=== PATIENT | male | born 1965 | race Caucasian/White ===

== ENCOUNTER 2023-10-10 08:59 | Outpatient (AMB) | payer BC, SELFPAY ==
--- NOTE | 2023-10-10 09:04 | MHC.OFFVIS ---
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 Palomares. He has a past medical history of history of basal cell carcinoma, contact dermatitis, BPH without outflow obstruction, hyperlipidemia, vitamin-D deficiency, and Suad's thyroiditis. He presents to the office today as a new patient for ongoing lower urinary tract symptoms. In discussion with the patient today he reports having followed up with [facility]rology group of [facility] summer however presents today to establish urology care here. He discusses having ongoing intermittent issues with nocturia, weak urinary stream, and urinary pressure. He reports at times feeling the need to strain or bare down to urinate. He reports feeling Flomax is helpful in relieving this symptom however is not currently on Flomax as he does not feel any bothersome urinary issues or concerns. He reports undergoing a embolization procedure of his prostate and felt this was 10-20% affective in his nocturia. He reports nocturia up to 2 times per night. He reports having had a in office cystoscopy with previous urologist at which time recommendations were made for Rezum procedure of the prostate. He reports never having gone through with this procedure as he felt there was scheduling issues. 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 Patient with previous urodynamics testing. He currently denies any bothersome urinary issues or concerns. In office urinalysis results reviewed with the patient today. PVR 29 mL. [facility] Medical History Metatarsalgia of left foot Pain in left foot History of basal cell carcinoma (BCC) Villonodular synovitis of ankle and foot Contact dermatitis Benign prostatic hyperplasia Panic disorder with agoraphobia Overweight Mixed hyperlipidemia Vitamin D deficiency Suad's thyroiditis Surgical History H/O transurethral resection of prostate History of basal cell carcinoma excision Review of Systems Const All systems reviewed & are unremarkable except as noted in HPI and below Reports no additional complaints Eyes Reports no additional complaints ENT Reports no additional complaints Card Reports as per [facility] Resp Reports no additional complaints GI Reports no additional complaints Reports as per [facility] Musc Reports as per [facility] Skin/Breast Reports as per HPI Neuro Reports no additional complaints Psych Reports no additional complaints Endo Reports as per HPI Jalil/Lymph Reports no additional complaints Aller/Immun Reports no additional complaints Physical Exam Const General: cooperative, healthy appearing, comfortable, no acute distress, well developed, alert and awake Orientation/consciousness: patient oriented x3 Limitations: no limitations HEENT Head: Yes normal to inspection, Yes normocephalic and Yes atraumatic Ears: hearing grossly normal bilaterally Eyes General: appearance normal, both eyes and all related structures Neck Neck: Yes normal visual inspection and Yes trachea midline Chest Chest palpation & inspection: normal inspection of the chest Resp Effort & Inspection: normal respiratory effort and able to speak in complete sentences Cardio Rate: regular rate GI Inspection: Yes normal to inspection General: Yes no CVA tenderness Back/Spine/Pelvis Back: no CVA tenderness Skin General skin exam: no rashes or lesions noted Neuro General: patient oriented x3 Extrem General: Yes normal to inspection Psych Appearance: grossly normal and well kempt Mental Status: mental status grossly normal Speech and movement: Normal speech and movement present and Clear speech present Affect: normal affect Attitude: cooperative Thought process: Normal thought process present Thought content: Normal thought content present Insight: Fair insight present (Psych) Judgement: Fair judgement present (Psych) Office Procedures Post Void Residual Post Residual Void Post Void Residual (PVR): 29 [id number] Void Residual by ultrasound Results AMB Urinalysis, Automated UA Leukoctes 0 Silvia/uL Last Edit by Gladys Dow on 10/10/23 09:29 UA Nitrite Negative Last Edit by Gladys Dow on 10/10/23 09:29 UA Urobilinogen 0.2 mg/dL Last Edit by Gladys Dow on 10/10/23 09:29 UA Protein 0 mg/dL Last Edit by Gladys Dow on 10/10/23 09:29 UA pH 6.5 Last Edit by Gladys Dow on 03/25/24 09:29 UA Blood 0 Chao/uL Last Edit by Gladys Beasleynithin on 10/10/23 09:29 UA Specific [place] 1.010 Last Edit by Gladys Beaslyenithin on 10/10/23 09:29 UA Ketone Negative Last Edit by Gladys Beasleynithin on 10/10/23 09:29 UA Bilirubin 0 mg/dL Last Edit by Gautamlindsey Galenithin on 10/10/23 09:29 UA Glucose 0 mg/dL Last Edit by Gautamlindsey Galenithin on 10/10/23 09:29 Results Reviewed Results Reviewed: Laboratory Last Values Urine pH (Auto) 6.5 10/10/23 09:16 Specific [place] (Auto) 1.010 10/10/23 09:16 Urine Protein (Auto) 0 mg/dL 10/10/23 09:16 Glucose (UA)(Auto) 0 mg/dL 10/10/23 09:16 Urine Ketones (Auto) Negative 10/10/23 09:16 Urine Blood (Auto) 0 Chao/uL 10/10/23 09:16 Urine Nitrite (Auto) Negative 10/10/23 09:16 Urine Bilirubin (Auto) 0 mg/dL 10/10/23 09:16 Urine Urobilinogen (Auto) 0.2 mg/dL 10/10/23 09:16 Leukocyte Esterase (Auto) 0 Silvia/uL 10/10/23 09:16 Assessment & Plan Assessment & Plan (1) Lower urinary tract symptoms: Code(s): R39.9 - Unspecified symptoms and signs involving the genitourinary system (2) Weak urinary stream: Code(s): R39.12 - Poor urinary stream (3) Nocturia: Code(s): R35.1 - Nocturia Plan In office urinalysis results reviewed with the patient today. PVR 29 mL. Discussed at length potential causes for lower urinary tract symptoms patient has been experiencing. Patient currently denies any bothersome urinary issues or concerns. He is happy with his current voiding parameters. Discussed obtaining PSA now and in 1 year. Discussed at length lifestyle modifications to assist with nocturia as well as weak urinary stream. Discussed possible near future in office cystoscopy for further assessment evaluation if symptoms arise. Follow-up in 1 year with lab to be completed prior; or sooner with any issues, concerns, and or questions. Orders: Orders Prostate Specific Antigen Today R39.9 - Unspecified symptoms and signs involving the genitourinary system Prostate Specific Antigen 1 Year R39.9 - Unspecified symptoms and signs involving the genitourinary system AMB Urinalysis Automated Today Z13.9 - Encounter for screening, unspecified AMB Post Void Residual by ultrasound Today Z13.9 - Encounter for screening, unspecified Patient Instructions: The patient had an opportunity to ask questions regarding the treatment plan. All questions were answered. Physical exam, labs, and imaging were discussed and reviewed in detail. As well as risks, benefits, and discussion of treatment choices. No major barriers to understanding were identified. The patient expressed understanding and agreement with the above treatment plan. The patient was made aware they should contact our office by phone for worsening of their current condition, the appearance of new symptoms, or with any questions or concerns. Compliance is encouraged with any medications and follow up testing that is ordered. It is a privilege to be allowed the opportunity to participate in? your urological care.? Again, if you have any questions or concerns If you have any questions or concerns please do not hesitate to contact me. The office is [phone]. This note is constructed using voice recognition software. While every effort has been made to ensure accuracy mechanical estimator errors may have been included. Yours sincerely, JASON Azevedo Coding Level of Care Code New Pt Level 4 (90275) Diagnoses Lower urinary tract symptoms R39.9 Weak urinary stream R39.12 Nocturia R35.1 CPT Codes Post Residual Void - PVR CPT Code: 11566-Kddo Void Residual by ultrasound ([id number]) Time Spent (min) 35
== END 2023-10-10 09:50 | disposition home or self-care (01) ==
PROVIDERS: PCP Physician Assistant Medical; Visit Provider Nurse Practitioner Family
DX: R39.9 Unspecified symptoms and signs involving the genitourinary system (principal); R39.12 Poor urinary stream; R35.1 Nocturia
CPT/HCPCS: 99204

== ENCOUNTER → 2023-10-10 08:59 | Outpatient (BNVA) | payer BC, SELFPAY | PROVIDERS: PCP Physician Assistant Medical; Visit Provider Nurse Practitioner Family | DX: N40.1 Benign prostatic hyperplasia with lower urinary tract symptoms (principal); R39.12 Poor urinary stream; R35.1 Nocturia; R39.9 Unspecified symptoms and signs involving the genitourinary system | CPT/HCPCS: 51798; 81003 ==

== ENCOUNTER 2023-10-10 10:20 | Outpatient (REF) | payer BC, SELFPAY ==
[2023-10-10 15:05] LABS: Prostate Specific Antigen 3.16 ng/mL (<0.05-4.0)
== END 2023-10-10 10:21 | disposition home or self-care (01) ==
LOC: HO.10HDL 10:20
PROVIDERS: Visit Provider Nurse Practitioner Family
DX: Z12.5 Encounter for screening for malignant neoplasm of prostate (principal); R39.9 Unspecified symptoms and signs involving the genitourinary system
CPT/HCPCS: 36415; 84153

== ENCOUNTER 2024-02-08 11:30 | Outpatient (REF) | payer BC, SELFPAY ==
[2024-02-08 14:11] LABS: Prostate Specific Antigen 3.56 ng/mL (<0.05-4.0)
== END 2024-02-08 11:31 | disposition home or self-care (01) ==
LOC: HO.10HDL 11:30
PROVIDERS: Visit Provider Nurse Practitioner Family
DX: R35.1 Nocturia (principal); R39.12 Poor urinary stream; R39.9 Unspecified symptoms and signs involving the genitourinary system; Z12.5 Encounter for screening for malignant neoplasm of prostate
CPT/HCPCS: 36415; 84153

== ENCOUNTER 2024-02-13 10:26 | Outpatient (AMB) | payer BC, SELFPAY ==
--- NOTE | 2024-02-13 10:30 | MHC.OFFVIS ---
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 Palomares. He has a past medical history of history of basal cell carcinoma, contact dermatitis, BPH without outflow obstruction, hyperlipidemia, vitamin-D deficiency, and Suad's thyroiditis. He presents to the office today for follow-up of his ongoing lower urinary tract symptoms. In discussion with the patient today he reports to be doing and feeling well. Recent PSA results reviewed with the patient today. PSAs are as follows: 12/06 2.6, 10/08 3.2, 02/07 3.6 Since last office visit patients previous urology records from [facility] were obtained these were reviewed today with the patient. It appears patient underwent urodynamics 01/06, cystoscopy 01/06 that noted no strictures, nonobstructing prostate, nonobstructing bladder neck, and mild hyperplasia. It appears patient was to undergo prostate biopsy procedure however this was never completed. He discusses having ongoing intermittent issues with nocturia, weak urinary stream, and urinary pressure. He reports at times feeling the need to strain or bare down to urinate. He reports feeling Flomax is helpful in relieving these symptoms however is not currently on Flomax as he does not feel any bothersome urinary issues or concerns at this time. He reports undergoing a embolization procedure of his prostate and felt this was 10-20% affective in his nocturia. He reports nocturia up to 2 times per night. He reports having had a in office cystoscopy with previous urologist at which time recommendations were made for Rezum procedure of the prostate. He reports never having gone through with this procedure as he felt there was scheduling issues. 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 He currently denies any bothersome urinary issues or concerns. In office urinalysis results reviewed with the patient today. PVR 17 mL. Discussed obtaining retroperitoneal ultrasound for further assessment evaluation and redraw of PSA given borderline elevated PSA with family history of prostate cancer. Discussed at length potential causes of elevated PSA. He otherwise offers no other issues or concerns at this time. [facility] Medical History Metatarsalgia of left foot Pain in left foot History of basal cell carcinoma (BCC) Villonodular synovitis of ankle and foot Contact dermatitis Benign prostatic hyperplasia Panic disorder with agoraphobia Overweight Mixed hyperlipidemia Vitamin D deficiency Suad's thyroiditis Surgical History H/O transurethral resection of prostate History of basal cell carcinoma excision Review of Systems Const All systems reviewed & are unremarkable except as noted in HPI and below Reports no additional complaints Eyes Reports no additional complaints ENT Reports no additional complaints Card Reports as per HPI Resp Reports no additional complaints GI Reports no additional complaints Reports as per HPI Musc Reports as per HPI Skin/Breast Reports as per HPI Neuro Reports no additional complaints Psych Reports no additional complaints Endo Reports as per HPI Jalil/Lymph Reports no additional complaints Aller/Immun Reports no additional complaints Physical Exam Const General: cooperative, healthy appearing, comfortable, no acute distress, well developed, alert and awake Orientation/consciousness: patient oriented x3 Limitations: no limitations HEENT Head: Yes normal to inspection, Yes normocephalic and Yes atraumatic Ears: hearing grossly normal bilaterally Eyes General: appearance normal, both eyes and all related structures Neck Neck: Yes normal visual inspection and Yes trachea midline Chest Chest palpation & inspection: normal inspection of the chest Resp Effort & Inspection: normal respiratory effort and able to speak in complete sentences Cardio Rate: regular rate GI Inspection: Yes normal to inspection General: Yes no CVA tenderness Back/Spine/Pelvis Back: no CVA tenderness Skin General skin exam: no rashes or lesions noted Neuro General: patient oriented x3 Extrem General: Yes normal to inspection Psych Appearance: grossly normal and well kempt Mental Status: mental status grossly normal Speech and movement: Normal speech and movement present and Clear speech present Affect: normal affect Attitude: cooperative Thought process: Normal thought process present Thought content: Normal thought content present Insight: Fair insight present (Psych) Judgement: Fair judgement present (Psych) Office Procedures Post Void Residual Post Residual Void Post Void Residual (PVR): 17 [id number] Void Residual by ultrasound Results AMB Urinalysis, Automated UA Leukoctes 0 Silvia/uL Last Edit by Sumo Logicrex Dow on 02/13/24 10:44 UA Nitrite Negative Last Edit by CrimeReportsnithin on 02/13/24 10:44 UA Urobilinogen 0.2 mg/dL Last Edit by [employer] on 02/13/24 10:44 UA Protein 15 mg/dL Last Edit by [employer] on 02/13/24 10:44 UA pH 6.0 Last Edit by [employer] on 02/13/24 10:44 UA Blood 0 Chao/uL Last Edit by [employer] on 02/13/24 10:44 UA Specific [place] 1.015 Last Edit by [employer] on 02/13/24 10:44 UA Ketone Negative Last Edit by [employer] on 02/13/24 10:44 UA Bilirubin 0 mg/dL Last Edit by [employer] on 02/13/24 10:44 UA Glucose 0 mg/dL Last Edit by [employer] on 02/13/24 10:44 Results Reviewed Results Reviewed: Laboratory Last Values Urine pH (Auto) 6.0 02/13/24 10:43 Specific [place] (Auto) 1.015 02/13/24 10:43 Urine Protein (Auto) 15 mg/dL 02/13/24 10:43 Glucose (UA)(Auto) 0 mg/dL 02/13/24 10:43 Urine Ketones (Auto) Negative 02/13/24 10:43 Urine Blood (Auto) 0 Chao/uL 02/13/24 10:43 Urine Nitrite (Auto) Negative 02/13/24 10:43 Urine Bilirubin (Auto) 0 mg/dL 02/13/24 10:43 Urine Urobilinogen (Auto) 0.2 mg/dL 02/13/24 10:43 Leukocyte Esterase (Auto) 0 Silvia/uL 02/13/24 10:43 Assessment & Plan Assessment & Plan (1) Family history of prostate cancer: Code(s): Z80.42 - Family history of malignant neoplasm of prostate Category: Medical (2) Elevated PSA: Code(s): R97.20 - Elevated prostate specific antigen [PSA] Category: Medical (3) Lower urinary tract symptoms: Code(s): R39.9 - Unspecified symptoms and signs involving the genitourinary system Category: Medical Plan In office urinalysis results reviewed with the patient today; as noted above. PVR 17 mL. Reviewed all previous urology records. Discussed at length potential causes of borderline elevated PSA given patient's age. Discussed redraw of PSA with no sex the night before, no caffeine morning of, and no heavy lifting 1-2 days prior. Discussed obtaining retroperitoneal ultrasound for further assessment evaluation. Patient currently denies any bothersome urinary issues or concerns. He reports be happy with current voiding parameters. Follow-up in 1-3 months with imaging and lab to be completed prior; or sooner with any issues, concerns, and or questions. Orders: Orders AMB Urinalysis Automated Today Z13.9 - Encounter for screening, unspecified AMB Post Void Residual by ultrasound Today R39.12 - Poor urinary stream Prostate Specific Antigen Today R97.20 - Elevated prostate specific antigen [PSA], Z80.42 - Family history of malignant neoplasm of prostate US retroperitoneal comp Today R39.9 - Unspecified symptoms and signs involving the genitourinary system, R97.20 - Elevated prostate specific antigen [PSA], Z80.42 - Family history of malignant neoplasm of prostate Patient Instructions: The patient had an opportunity to ask questions regarding the treatment plan. All questions were answered. Physical exam, labs, and imaging were discussed and reviewed in detail. As well as risks, benefits, and discussion of treatment choices. No major barriers to understanding were identified. The patient expressed understanding and agreement with the above treatment plan. The patient was made aware they should contact our office by phone for worsening of their current condition, the appearance of new symptoms, or with any questions or concerns. Compliance is encouraged with any medications and follow up testing that is ordered. It is a privilege to be allowed the opportunity to participate in? your urological care.? Again, if you have any questions or concerns If you have any questions or concerns please do not hesitate to contact me. The office is [phone]. This note is constructed using voice recognition software. While every effort has been made to ensure accuracy christian education director errors may have been included. Yours sincerely, JASON Azevedo Coding Level of Care Code Est Pt Level 4 (14045) Diagnoses Family history of prostate cancer Z80.42 Elevated PSA R97.20 Lower urinary tract symptoms R39.9 CPT Codes Post Residual Void - PVR CPT Code: 72364-[id number] Void Residual by ultrasound ([id number]) Time Spent (min) 25
== END 2024-02-13 11:22 | disposition home or self-care (01) ==
PROVIDERS: PCP Physician Assistant Medical; Visit Provider Nurse Practitioner Family
DX: Z80.42 Family history of malignant neoplasm of prostate (principal); R97.20 Elevated prostate specific antigen [PSA]; R39.9 Unspecified symptoms and signs involving the genitourinary system; Z13.9 Encounter for screening, unspecified
CPT/HCPCS: 99214

== ENCOUNTER → 2024-02-13 10:26 | Outpatient (BNVA) | payer BC, SELFPAY | PROVIDERS: PCP Physician Assistant Medical; Visit Provider Nurse Practitioner Family | DX: R97.20 Elevated prostate specific antigen [PSA] (principal); R39.9 Unspecified symptoms and signs involving the genitourinary system; Z80.42 Family history of malignant neoplasm of prostate | CPT/HCPCS: 51798; 81003 ==

== ENCOUNTER 2024-03-27 15:06 | Outpatient (REF) | payer BC, SELFPAY ==
--- NOTE | ~2024-03-27 | US_ITS ---
EXAMINATION: US RETROPERITONEAL COMPLETE (RENAL) CLINICAL INFORMATION: Elevated PSA, family history of malignant prostate, lower urinary tract symptoms. COMPARISON: None available. TECHNIQUE: Real-time imaging of the kidneys and bladder. FINDINGS: RIGHT KIDNEY: 11.8 x 6.1 x 5.6 cm (SAG x AP x TRV). The kidney is normal in size, contour, and echogenicity. Renal cortical thickness is normal. No calculi or focal parenchymal lesions. No hydronephrosis. LEFT KIDNEY: 11.5 x 5.1 x 4.8 cm (SAG x AP x TRV). The kidney is normal in size, contour, and echogenicity. Renal cortical thickness is normal. No calculi or focal parenchymal lesions. No hydronephrosis. BLADDER: Well distended and normal. Bilateral ureteral jets are demonstrated. Prevoid bladder volume is 414 mL. Postvoid bladder volume is 158 mL. ADDITIONAL FINDINGS: Prostate at upper limits of normal measuring 28 mL. US/US retroperitoneal comp IMPRESSION: Normal-appearing kidneys. Prostate at upper limits of normal in size with large 158 mL post void residual. Electronically signed by: Arie Hinton MD 04/04/2024 02:10 PM EDT RP
== END 2024-03-27 15:07 | disposition home or self-care (01) ==
LOC: HO.US 15:06
PROVIDERS: PCP Physician Assistant Medical; Visit Provider Nurse Practitioner Family
DX: R97.20 Elevated prostate specific antigen [PSA] (principal); R39.9 Unspecified symptoms and signs involving the genitourinary system; Z80.42 Family history of malignant neoplasm of prostate
CPT/HCPCS: 76770

== ENCOUNTER 2024-04-11 07:53 | Outpatient (REF) | payer BC, SELFPAY ==
[2024-04-11 10:48] LABS: Prostate Specific Antigen 2.68 ng/mL (<0.05-4.0)
== END 2024-04-11 07:54 | disposition home or self-care (01) ==
LOC: HO.10HDL 07:53
PROVIDERS: Visit Provider Nurse Practitioner Family
DX: Z12.5 Encounter for screening for malignant neoplasm of prostate (principal); R97.20 Elevated prostate specific antigen [PSA]; Z80.42 Family history of malignant neoplasm of prostate
CPT/HCPCS: 36415; 84153

== ENCOUNTER 2024-04-17 14:35 | Outpatient (AMB) | payer BC, SELFPAY ==
--- NOTE | 2024-04-17 14:38 | A.OFFVIS_ITS ---
Intake Visit Reasons: 2m/US/PSA Intake Note: Patient presents today for follow up visit on: psa lab and ultrasound results Imaging Completed: 03/27/24 PSA: 3.56 Urology Medications: none Blood Thinner: none Rn Flight Required: No Accompanied by: Self / Same As Patient Allergies Sulfa (Sulfonamide Antibiotics) Allergy (Verified 04/17/24 15:15) Hives Medication List - Last Reconciled 04/17/24 by JASON Azevedo No Known Home Meds HPI Comments Details: John is a very pleasant 59-year-old male patient of Dr. Palomares. He has a past medical history of history of basal cell carcinoma, contact dermatitis, BPH without outflow obstruction, hyperlipidemia, vitamin-D deficiency, and Suad's thyroiditis. He presents to the office today for follow-up of his ongoing lower urinary tract symptoms in labile PSA. Of note, patient was seen approximately two months ago at which time a retroperitoneal ultrasound was ordered and redraw of PSA. These results were reviewed with the patient today. PSAs are as follows: 12/06 2.6, 10/08 3.2, 02/07 3.6, 04/10 2.7 Bilateral kidneys with no calculi, lesions, and or hydronephrosis. The bladder is well distended and normal. Bilateral ureteral jets are demonstrated. Pre void bladder volume is approximately 415 mL. Postvoid bladder volume is approximately 160 mL. Prostate is upper limits of normal measuring 28 mL. We discussed variability in PSA and potential causes for this variability. Patient with a previous urological history with [facility] and underwent urodynamics 01/06, cystoscopy 01/06 that noted no strictures, nonobstructing prostate, nonobstructing bladder neck, and mild hyperplasia. It appears patient was to undergo prostate biopsy procedure however this was never completed. He discusses having ongoing intermittent issues with nocturia, weak urinary stream, and urinary pressure. He reports at times feeling the need to strain or bare down to urinate. He reports feeling Flomax is helpful in relieving these symptoms however is not currently on Flomax as he does not feel any bothersome urinary issues or concerns at this time. He reports undergoing a embolization procedure of his prostate and felt this was 10-20% affective in his nocturia. He reports nocturia up to 2 times per night. He reports having had a in office cystoscopy with previous urologist at which time recommendations were made for Rezum procedure of the prostate. He reports never having gone through with this procedure as he felt there was scheduling issues. 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 He currently denies any bothersome urinary issues or concerns. In office urinalysis results reviewed with the patient today. Discussed surveillance monitoring of PSA given family history of prostate cancer and labile PSA. He otherwise offers no other issues or concerns at this time. FOR[facility]LY [facility] Medical History Metatarsalgia of left foot Pain in left foot History of basal cell carcinoma (BCC) Villonodular synovitis of ankle and foot Contact dermatitis Benign prostatic hyperplasia Panic disorder with agoraphobia Overweight Mixed hyperlipidemia Vitamin D deficiency Suad's thyroiditis Surgical History H/O transurethral resection of prostate History of basal cell carcinoma excision Review of Systems Const All systems reviewed & are unremarkable except as noted in HPI and below Reports no additional complaints Eyes Reports no additional complaints ENT Reports no additional complaints Card Reports as per HPI Resp Reports no additional complaints GI Reports no additional complaints Reports as per HPI Musc Reports as per HPI Skin/Breast Reports as per HPI Neuro Reports no additional complaints Psych Reports no additional complaints Endo Reports as per HPI Jalil/Lymph Reports no additional complaints Aller/Immun Reports no additional complaints Physical Exam Const General: cooperative, healthy appearing, comfortable, no acute distress, well developed, alert and awake Nutritional Appearance: average body habitus Orientation/consciousness: patient oriented x3 Limitations: no limitations HEENT Head: Yes normal to inspection, Yes normocephalic and Yes atraumatic Ears: hearing grossly normal bilaterally Eyes General: appearance normal, both eyes and all related structures Neck Neck: Yes normal visual inspection and Yes trachea midline Chest Chest palpation & inspection: normal inspection of the chest Resp Effort & Inspection: normal respiratory effort and able to speak in complete sentences Cardio Rate: regular rate GI Inspection: Yes normal to inspection General: Yes no CVA tenderness Back/Spine/Pelvis Back: no CVA tenderness Skin General skin exam: no rashes or lesions noted Neuro General: patient oriented x3 Extrem General: Yes normal to inspection Psych Appearance: grossly normal and well kempt Mental Status: mental status grossly normal Speech and movement: Normal speech and movement present and Clear speech present Affect: normal affect Attitude: cooperative Thought process: Normal thought process present Thought content: Normal thought content present Insight: Fair insight present (Psych) Judgement: Fair judgement present (Psych) Results AMB Urinalysis, Automated UA Leukoctes 0 Silvia/uL Last Edit by [employer] on 04/17/24 15:07 UA Nitrite Last Edit by [employer] on 04/17/24 15:07 UA Urobilinogen 0.2 mg/dL Last Edit by [employer] on 04/17/24 15:07 UA Protein 0 mg/dL Last Edit by [employer] on 04/17/24 15:07 UA pH 6.0 Last Edit by [employer] on 04/17/24 15:07 UA Blood 0 Chao/uL Last Edit by [employer] on 04/17/24 15:07 UA Specific [place] 1.010 Last Edit by [employer] on 04/17/24 15:07 UA Ketone Last Edit by [employer] on 04/17/24 15:07 UA Bilirubin 0 mg/dL Last Edit by [employer] on 04/17/24 15:07 UA Glucose 0 mg/dL Last Edit by [employer] on 04/17/24 15:07 Results Reviewed Results Reviewed: Laboratory Last Values Urine pH (Auto) 6.0 04/17/24 15:05 Specific [place] (Auto) 1.010 04/17/24 15:05 Urine Protein (Auto) 0 mg/dL 04/17/24 15:05 Glucose (UA)(Auto) 0 mg/dL 04/17/24 15:05 Urine Blood (Auto) 0 Chao/uL 04/17/24 15:05 Urine Bilirubin (Auto) 0 mg/dL 04/17/24 15:05 Urine Urobilinogen (Auto) 0.2 mg/dL 04/17/24 15:05 Leukocyte Esterase (Auto) 0 Silvia/uL 04/17/24 15:05 Date of Service: 03/27/24 EXAMINATION: US RETROPERITONEAL COMPLETE (RENAL) FINDINGS: RIGHT KIDNEY: 11.8 x 6.1 x 5.6 cm (SAG x AP x TRV). The kidney is normal in size, contour, and echogenicity. Renal cortical thickness is normal. No calculi or focal parenchymal lesions. No hydronephrosis. LEFT KIDNEY: 11.5 x 5.1 x 4.8 cm (SAG x AP x TRV). The kidney is normal in size, contour, and echogenicity. Renal cortical thickness is normal. No calculi or focal parenchymal lesions. No hydronephrosis. BLADDER: Well distended and normal. Bilateral ureteral jets are demonstrated. Prevoid bladder volume is 414 mL. Postvoid bladder volume is 158 mL. ADDITIONAL FINDINGS: Prostate at upper limits of normal measuring 28 mL. IMPRESSION: Normal-appearing kidneys. Prostate at upper limits of normal in size with large 158 mL post void residual. Assessment & Plan Assessment & Plan (1) Elevated PSA: Code(s): R97.20 - Elevated prostate specific antigen [PSA] Category: Medical (2) Family history of prostate cancer: Code(s): Z80.42 - Family history of malignant neoplasm of prostate Category: Medical (3) Lower urinary tract symptoms: Code(s): R39.9 - Unspecified symptoms and signs involving the genitourinary system Category: Medical Plan In office urinalysis results reviewed with the patient today; as noted above. Recent PSA results reviewed with the patient today; as noted above. Recent retroperitoneal ultrasound results reviewed with the patient today; as noted above. Patient currently denies any bothersome urinary issues or concerns. Discussed importance of surveillance monitoring of PSA given family history of prostate cancer as well as labile PSA. Will obtain PSA in 6 months; with no sex the night before no caffeine morning of, and no heavy lifting 1-2 days prior. Follow-up in 6 months with PSA and PVR; or sooner with any issues, concerns, and or questions. Orders: Orders AMB Urinalysis Automated Today Z13.9 - Encounter for screening, unspecified Prostate Specific Antigen 6 Months R97.20 - Elevated prostate specific antigen [PSA], Z80.42 - Family history of malignant neoplasm of prostate Patient Instructions: The patient had an opportunity to ask questions regarding the treatment plan. All questions were answered. Physical exam, labs, and imaging were discussed and reviewed in detail. As well as risks, benefits, and discussion of treatment choices. No major barriers to understanding were identified. The patient expressed understanding and agreement with the above treatment plan. The patient was made aware they should contact our office by phone for worsening of their current condition, the appearance of new symptoms, or with any questions or concerns. Compliance is encouraged with any medications and follow up testing that is ordered. It is a privilege to be allowed the opportunity to participate in? your urological care.? Again, if you have any questions or concerns If you have any questions or concerns please do not hesitate to contact me. The office is [phone]. This note is constructed using voice recognition software. While every effort has been made to ensure accuracy gang leader errors may have been included. Yours sincerely, JASON Azevedo Coding Level of Care Code Est Pt Level 3 (20253) Diagnoses Elevated PSA R97.20 Family history of prostate cancer Z80.42 Lower urinary tract symptoms R39.9
== END 2024-04-17 15:18 | disposition home or self-care (01) ==
PROVIDERS: PCP Physician Assistant Medical; Visit Provider Nurse Practitioner Family
DX: R97.20 Elevated prostate specific antigen [PSA] (principal); Z80.42 Family history of malignant neoplasm of prostate; R39.9 Unspecified symptoms and signs involving the genitourinary system; Z13.9 Encounter for screening, unspecified
CPT/HCPCS: 99213

== ENCOUNTER → 2024-04-17 14:35 | Outpatient (BNVA) | payer BC, SELFPAY | PROVIDERS: PCP Physician Assistant Medical; Visit Provider Nurse Practitioner Family | DX: R97.20 Elevated prostate specific antigen [PSA] (principal); R39.9 Unspecified symptoms and signs involving the genitourinary system; Z80.42 Family history of malignant neoplasm of prostate | CPT/HCPCS: 81003 ==

== ENCOUNTER 2024-09-17 09:30 | Outpatient (REF) | payer BC, SELFPAY ==
--- OUTSIDE RECORDS SUMMARY | 2024-09-17 10:30 | XMS_ITS | Patient Health Record ---
Author Organization [facility] Address [address] [place] [address] Care Team Providers Care Consultant Dietitian Name Role Phone Tony Palomares PA-C Primary Care Provider Unava ilYuan Medina Unavailable [phone] Allergies Allergen (clinical drug ingredient) Drug/Non Drug Allergy documented on EMR Reaction Allergy Type Onset Date Status Substance with sulfonamide structure and antibacterial mechanism of action (substance) Sulfa Antibiotics rash, hives, swelling Drug Allergy Active Reason For Referral No Information Medications Medication SIG (Take, Route, Fr equency, Duration) Notes Start Date End Date Status Flucelvax inject 0.5 millilite r intramuscularly Intramuscular for 1 Not-Taking Social History Tobacco use other than smoking: Question Answer Notes Are you an other tobacco user? No Plan Of Treatment Pending Test Test Name Order Date [id number] Destruction, 1-14 12/05/2014 [id number] Biopsy 0.5cm 10/17/2014 Insurance Providers Payer Name Payer Address Payer Phone Subscriber Number Group Number Insured Name Patient Relationship to Insured Coverage Start Date Coverage End Date [facility] [address] [place] [address] [id number] Мария Montague Spouse - patient is the spouse of the insured Medical (General) History Medical History History ICD Code Chicken pox Surgical History Surgery Date(Month/Year) ankle surgery 2012 PAE 07/2022
--- OUTSIDE RECORDS SUMMARY | 2024-09-17 10:30 | XMS_ITS ---
Author Organization [facility] Address [address] [place] [address] Care Team Providers Care Sales Service Route Manager Name Role Phone Tony Palomares PA-C Primary Care Provider Unava ilYuan Medina Unavailable [phone] REASON FOR VISIT wayne inj Encounters Encounter Location Date Provider Diagnosis [facility] [address] [place] [address] 08/30/2023 Yuan Muller Plan Of Treatment No Information Progress Notes * John MONTAGUE JrDOB:[birth year] (58 yo M)Acc No.[id number]:08/30/2023 Patient:?John Montague :1965???Age:58 Y???Sex:Male Address:[address] [place] [id number] * true * Date:? Generated for Joshi gold/Benson/eTransmitting on:?09/17/2024 10:30 AM EST
--- OUTSIDE RECORDS SUMMARY | 2024-09-17 10:31 | XMS_ITS | Data Portability ---
Author Organization [facility], Main Office Address [address] [facility] [address] [place] [id number] Care Team Providers Care Solar Sales Representative And Assessor Name Role Phone JOSUETONY GRANT Primary Care Provider FLORIDA LAGUNAS Orthopedic Surgeon [phone] AWA WILSON Delivery Room Supervisor [phone] ROSALINDA POND Urologist ARMEN SAMAYOA Fugitive Investigator Assessment Encounter Date Assessment Date Assessment LastModified by Organization Details LastModified Time 11/20/2021 11/20/2021 This service was provided using telemedicine. Patient consented to video & audio visit Patient was located in the [facility]. Provider was located in the office. No other persons participated in the telemedicine visit except for the patient unless otherwise indicated here. {{}} Total time of visit was 20 minutes. Symptoms of viral URI with cough. REviewed symptomatic management and reasons for follow up care (fevers, shortness of breath, symptoms >2 weeks). [email or web address] Not available 11/20/2021 14:44:23 08/16/2023 08/16/2023 This service was provided using telemedicine. Patient consented to video & audio visit Patient was located in the [facility]. Provider was located in the office. No other persons participated in the telemedicine visit except for the patient unless otherwise indicated here. {{}} Total time of visit was 18 minutes. [email or web address] Not available 08/16/2023 16:04:17 Plan of Treatment Reminders Order Date Submit Date Provider Last Modified By Organization Details Last Modified Time Details Appointments None record ed. Lab lipid panel, serum 2023 024 VIBHA [facility] (Centralized Electronic Ordering - All Locations), Patient Can Go To The Location Of Their Choice, [id number] 4 12:12:04 CMP, serum or plasma 2023 024 VIBHA [facility] (Centralized Electronic Ordering - All Locations), Patient Can Go To The Location Of Their Choice, [id number] 4 12:12:03 CBC w/ auto diff 2023 024 VIBHA [facility] (Centralized Electronic Ordering - All Locations), Patient Can Go To The Location Of Their Choice, [id number] 4 12:12:03 HbA1c (hemog lobin A1c), blood 2023 024 VIBHA [facility] (Centralized Electronic Ordering - All Locations), Patient Can Go To The Location Of Their Choice, [id number] 4 12:12:03 TSH, ultra- sensit mali, serum 2023 024 VIBHA [facility] (Centralized Electronic Ordering - All Locations), Patient Can Go To The Location Of Their Choice, [id number] 4 12:12:04 HbA1c (hemog lobin A1c), blood 2022 023 VIBHA [facility], [address], [address] [address], [place], [address], 3 18:35:33 lipid panel, serum 2022 023 VIBHA [facility], [address], [place] [address], [place], [address], 3 17:27:45 vitami n D, 25-hyd lacy, total, serum 2022 023 VIBHA [facility], [address], [place] [address], [place], [address], 3 17:43:08 PSA, serum or plasma - Screen ing 2022 023 VIBHA [facility], [address], [address] [address], [place], [address], 3 17:43:05 CMP, serum or plasma 2022 023 VIBHA [facility], [address], [address], [place], [address], 3 17:27:43 TSH, serum or plasma 2022 023 VIBHA [facility], [address], [address], [place], [address], 3 17:43:07 CBC w/ auto diff 2022 023 VIBHA [facility], [address], [address] [address], [place], [address], 3 16:23:34 Referral nutrit ionist /dieti akila referr al 2023 024 vinicius Not available 4 12:28:36 podiat rist referr al 2022 023 [email or web address] Not available 3 16:28:40 orthop edic surgeo n referr al 2022 023 [facility], [address] [place] [address], [facility] [address], [address], 3 15:44:46 urolog ist referr al 2022 023 [email or web address] Timmy Palencia MD, [address] [place], [address], 3 15:46:13 Procedures None record ed. Surgeries None record ed. Imaging XR, foot, 3 or more view 2022 023 [email or web address] In-Office Order, Internal Use Only DO Not Attach Compendium DO Not Attach Compendium, Do Not Delete/merge, [id number] 3 14:04:03 XR, foot, 3 or more view 2022 023 melissa In-Office Order, Internal Use Only DO Not Attach Compendium DO Not Attach Compendium, Do Not Delete/merge, [id number] 3 14:04:04 Medication Orders loraze michael 0.5 mg tablet 2023 024 VIBHA [facility], [address] [place], [address], 4 12:12:00 tamsul osin 0.4 mg capsul e 2023 024 [email or web address] [facility], [address] [place], [address], 4 11:09:06 Mobic 15 mg tablet 2022 023 stefanie [facility], [address] [place], [address], 4 15:21:04 Patient Targets Encounter Date Encounter Id Patient Goals Patient Target Last Modified By Organization Details Last Modified Time 06/04/2024 [id number] 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 [email or web address] Not available 06/04/2024 11:46:42 Patient Instructions Encounter Date Encounter Id Patient Instructions Last Modified By Organization Details Last Modified Time 11/20/2021 [id number] cough: care instructions [email or web address] Not available 11/20/2021 14:44:33 11/15/2022 [id number] Prostate Cancer Screening pmadden Not available 11/15/2022 11:39:26 A healthy lifestyle: care instructions pmadden Not available 11/15/2022 11:39:26 Well Visit 50 to 65: Care Instructions pmadden Not available 11/15/2022 11:39:26 Medications (OTC , herbal therapies, supplements) reviewed and reconciled with patient and or caregiver, including potential side effects, drug interactions, instructions, and the consequences of not taking medication. Reviewed potential barriers to medication adherence, such as side effects from medication or cost of medication. pmadden Not available 11/15/2022 11:28:11 11/30/2022 [id number] metatarsalgia: care instructions [email or web address] Not available 11/30/2022 10:02:46 08/16/2023 [id number] benign prostatic hyperplasia: care instructions pmadden Not available 08/16/2023 16:03:32 Follow up as needed. pmadden Not available 08/16/2023 16:03:14 06/04/2024 [id number] Well Visit 50 to 65: Care Instructions pmadden Not available 06/04/2024 12:11:47 When You Want to Lose Weight: Care Instructions pmadden Not available 06/04/2024 12:11:48 Nutrition Referral and Weight Management Follow-up Information pmadden Not available 06/04/2024 12:11:48 Discussed risks for driving while using this medication. pmadden Not available 06/04/2024 11:46:10 Reason for Referral Urologist Referral for Benig n prostatic hyperplasia with outflow obstruction Referring Physician: Tony Josue, Internal Medicine, Encounter Date: 11/15/2022 Orthopedic Surgeon Referral for Metatarsalgia of left foot Referring Physician: Tony Josue, Internal Medicine, Encounter Date: 11/15/2022 Skin Diver Referral for Lima tarsalgia Referring Physician: Erendira Tinoco, Family Medicine, Encounter Date: 11/30/2022 Manager Cosmetic/dietitian Refer ral for Body mass index 25-29 - overweight Referring Physician: Tony Josue, Internal Medicine, Encounter Date: 06/04/2024 Results Created Date Observation Date Name Description Value Unit Range Abnormal Flag Note LastModifiedBy Organization Detail LastModifiedTime 11/24/19 22 11/23/2021 HEMOG LOBIN A1C hemoglobin A1C 5.5 % (4.0-5 .6) MONIT ORING : In known diabe tic patie nts, hemog lobin A1c targe ts shoul d be discu ssed with healt h care provi dana. DIAGN OSTIC USE: The Ameri can Diabe mykel Assoc iatio n (ADA) and the World Healt h Organ izati on (WHO) recom mend the use of HbA1c to diagn ose diabe mykel using a thres hold of 6.5%. Patie nts who have an HbA1c betwe en 5.7% and 6.4% are consi dered at incre ased risk for devel oping diabe mykel in the futur eJeffrey CAUTI ON: False ly low HbA1c resul ts may be obser lino in patie nts with hemol ytic anemi a, homoz ygous forms of abnor mal hemog lobin (e.g. SS, CC, SC), pregn genaro, recen t blood loss or hemog lobin F great er than 7%. Fruct osami ne may be used as an alter hayden test in these cases . REFER ENCE: ADA: Stand ards of Medic al Care in Diabe mykel 2019, The Journ al of Clini garrison and Appli ed Resea rc and Educa tion Volum e 43, Suppl ement 1 Not Available [facility] (Centralized Electronic Ordering - All Locations) Patient Can Go To The Location Of Their Choice, 11/23/2021 15:25:53 11/24/1911/23/2021 COMPL ETE BLOOD COUNT WBC 4.2 K/mm3 (4.0-1 1.0) Not Available [facility] (Centralized Electronic Ordering - All Locations) Patient Can Go To The Location Of Their Choice, 11/23/2021 15:38:37 11/24/1911/23/2021 COMPL ETE BLOOD COUNT RBC 4.69 M/mm3 (4.70- 6.10) low Not Available [facility] (Centralized Electronic Ordering - All Locations) Patient Can Go To The Location Of Their Choice, 11/23/2021 15:38:37 11/24/1911/23/2021 COMPL ETE BLOOD COUNT HGB 15.0 gm/dL (13.7- 17.1) Not Available [facility] (Centralized Electronic Ordering - All Locations) Patient Can Go To The Location Of Their Choice, 11/23/2021 15:38:37 11/24/1911/23/2021 COMPL ETE BLOOD COUNT HCT 44.1 % (40.5- 50.0) Not Available [facility] (Centralized Electronic Ordering - All Locations) Patient Can Go To The Location Of Their Choice, 11/23/2021 15:38:37 11/24/1911/23/2021 COMPL ETE BLOOD COUNT MCV 94.0 fL (80.0- 94.0) Not Available [facility] (Centralized Electronic Ordering - All Locations) Patient Can Go To The Location Of Their Choice, 11/23/2021 15:38:37 11/24/1911/23/2021 COMPL ETE BLOOD COUNT MCH 32.0 pg (27.0- 34.0) Not Available [facility] (Centralized Electronic Ordering - All Locations) Patient Can Go To The Location Of Their Choice, 11/23/2021 15:38:37 11/24/1911/23/2021 COMPL ETE BLOOD COUNT MCHC 34.0 g/dL (33.0- 37.0) Not Available [facility] (Centralized Electronic Ordering - All Locations) Patient Can Go To The Location Of Their Choice, 11/23/2021 15:38:37 11/24/1911/23/2021 COMPL ETE BLOOD COUNT plt 185 K/mm3 (150-4 60) Not Available [facility] (Centralized Electronic Ordering - All Locations) Patient Can Go To The Location Of Their Choice, 11/23/2021 15:38:37 11/24/1911/23/2021 COMPL ETE BLOOD COUNT RDW-SD 44.5 fL (<47.0 ) Not Available [facility] (Centralized Electronic Ordering - All Locations) Patient Can Go To The Location Of Their Choice, 11/23/2021 15:38:37 11/24/1911/23/2021 COMPL ETE BLOOD COUNT MPV 10.5 fL (9.4-1 2.4) Not Available [facility] (Centralized Electronic Ordering - All Locations) Patient Can Go To The Location Of Their Choice, 11/23/2021 15:38:37 11/24/1911/23/2021 COMPL ETE BLOOD COUNT automated NRBC 0.0 #/100 _WBC' s Not Available [facility] (Centralized Electronic Ordering - All Locations) Patient Can Go To The Location Of Their Choice, 11/23/2021 15:38:37 11/24/19 22 11/23/2021 COMPL ETE BLOOD COUNT abs. NRBC 0.0 K/mm3 Not Available [facility] (Centralized Electronic Ordering - All Locations) Patient Can Go To The Location Of Their Choice, 11/23/2021 15:38:37 11/24/19 22 11/23/2021 COMPR EHENS MALI METAB OLIC PANL glucose 104 mg/dL (70-99 ) high Patie nt not fasti ng Not Available [facility] (Centralized Electronic Ordering - All Locations) Patient Can Go To The Location Of Their Choice, 11/23/2021 18:00:26 11/24/1911/23/2021 COMPR EHENS MALI METAB OLIC PANL BUN 13 mg/dL (6-20) Not Available [facility] (Centralized Electronic Ordering - All Locations) Patient Can Go To The Location Of Their Choice, 11/23/2021 18:00:26 11/24/1911/23/2021 COMPR EHENS MALI METAB OLIC PANL creatinine 1.1 mg/dL (0.7-1 .2) Not Available [facility] (Centralized Electronic Ordering - All Locations) Patient Can Go To The Location Of Their Choice, 11/23/2021 18:00:26 11/24/1911/23/2021 COMPR EHENS MALI METAB OLIC PANL sodium 142 mmol/ L (133-1 45) Not Available [facility] (Centralized Electronic Ordering - All Locations) Patient Can Go To The Location Of Their Choice, 11/23/2021 18:00:26 11/24/1911/23/2021 COMPR EHENS MALI METAB OLIC PANL potassium 5.3 mmol/ L (3.6-5 .2) high Not Available [facility] (Centralized Electronic Ordering - All Locations) Patient Can Go To The Location Of Their Choice, 11/23/2021 18:00:26 11/24/1911/23/2021 COMPR EHENS MALI METAB OLIC PANL chloride 105 mmol/ L (98-10 7) Not Available [facility] (Centralized Electronic Ordering - All Locations) Patient Can Go To The Location Of Their Choice, 11/23/2021 18:00:11/24/1911/23/2021 COMPR EHENS MALI METAB OLIC PANL bicarbonate 27 mmol/ L (22-29 ) Not Available [facility] (Centralized Electronic Ordering - All Locations) Patient Can Go To The Location Of Their Choice, 11/23/2021 18:00:11/24/1911/23/2021 COMPR EHENS MALI METAB OLIC PANL anion gap 10 (4-17) Not Available [facility] (Centralized Electronic Ordering - All Locations) Patient Can Go To The Location Of Their Choice, 11/23/2021 18:00:11/24/1911/23/2021 COMPR EHENS MALI METAB OLIC PANL albumin 4.7 gm/dL (3.4-4 .8) Not Available [facility] (Centralized Electronic Ordering - All Locations) Patient Can Go To The Location Of Their Choice, 11/23/2021 18:00:11/24/1911/23/2021 COMPR EHENS MALI METAB OLIC PANL calcium 9.7 mg/dL (8.6-1 0.5) Not Available [facility] (Centralized Electronic Ordering - All Locations) Patient Can Go To The Location Of Their Choice, 11/23/2021 18:00:11/24/1911/23/2021 COMPR EHENS MALI METAB OLIC PANL bilirubin,to latesha 0.5 mg/dL (0-1.2 ) Not Available [facility] (Centralized Electronic Ordering - All Locations) Patient Can Go To The Location Of Their Choice, 11/23/2021 18:00:11/24/1911/23/2021 COMPR EHENS MALI METAB OLIC PANL total protein 7.3 gm/dL (6.2-8 .2) Not Available [facility] (Centralized Electronic Ordering - All Locations) Patient Can Go To The Location Of Their Choice, 11/23/2021 18:00:11/24/1911/23/2021 COMPR EHENS MALI METAB OLIC PANL Ag ratio 1.8 Not Available [facility] (Centralized Electronic Ordering - All Locations) Patient Can Go To The Location Of Their Choice, 11/23/2021 18:00:26 11/24/1911/23/2021 COMPR EHENS MALI METAB OLIC PANL AST 27 U/L (0-40) Not Available [facility] (Centralized Electronic Ordering - All Locations) Patient Can Go To The Location Of Their Choice, 11/23/2021 18:00:26 11/24/1911/23/2021 COMPR EHENS MALI METAB OLIC PANL alk phos 78 U/L (40-12 9) Not Available [facility] (Centralized Electronic Ordering - All Locations) Patient Can Go To The Location Of Their Choice, 11/23/2021 18:00:11/24/1911/23/2021 COMPR EHENS MALI METAB OLIC PANL ALT 29 U/L (0-41) Not Available [facility] (Centralized Electronic Ordering - All Locations) Patient Can Go To The Location Of Their Choice, 11/23/2021 18:00:26 11/24/1911/23/2021 COMPR EHENS MALI METAB OLIC PANL estimated GFR creatinine 84 mL/mi n/1.7 3_M2 Creat inine based estim ated glome rular filtr ation (eGFR ) in adult s is calcu lated using the Natio nal Kidne y Found ation recom clive d 2020 CKD-E PI equat ion. Estim ates GFR from serum creat inine , age and sex. Not Available [facility] (Centralized Electronic Ordering - All Locations) Patient Can Go To The Location Of Their Choice, 11/23/2021 18:00:26 11/24/1911/23/2021 LIPID PANEL cholesterol, total 220 mg/dL (<200) high Not Available [facility] ([facility] Order[facility] - All Locations) Patient Can Go To The Location Of Their Choice, 11/23/2021 18:00:11/24/1911/23/2021 LIPID PANEL triglyceride 155 mg/dL (<150) high Patie nt not fasti ng Not Available [facility] (Centralized Electronic Ordering - All Locations) Patient Can Go To The Location Of Their Choice, 11/23/2021 18:00:29 11/24/1911/23/2021 LIPID PANEL HDL chol 36 mg/dL (>39) low Not Available [facility] (Centralized Electronic Ordering - All Locations) Patient Can Go To The Location Of Their Choice, 11/23/2021 18:00:29 11/24/1911/23/2021 LIPID PANEL LDL cholesterol, calculated 153 mg/dL (0-130 ) high Not Available [facility] (Centralized Electronic Ordering - All Locations) Patient Can Go To The Location Of Their Choice, 11/23/2021 18:00:29 11/24/1911/23/2021 LIPID PANEL non HDL cholesterol (calc) 184 mg/dL (<160) high Not Available [facility] ([facility] Order[facility] - All Locations) Patient Can Go To The Location Of Their Choice, 11/23/2021 18:00:29 11/24/1911/23/2021 PSA SCREE N PSA 2.6 NG/mL (0-4) TEST PERFO RMED USING THE [employer] ELECT [employer] CENCE TOTAL PSA ASSAY . PSA VALUE S OBTAI DIGNA WITH OTHER ASSAY METHO DS OR KITS CANNO T BE USED INTER CASH EABLY . Not Available [facility] (Centralized Electronic Ordering - All Locations) Patient Can Go To The Location Of Their Choice, 11/23/2021 18:13:32 11/24/1911/23/2021 TSH WITH REFLE X TO FT4 TSH 1.71 uIU/m L (0.4-4 .2) Not Available [facility] (Centralized Electronic Ordering - All Locations) Patient Can Go To The Location Of Their Choice, 11/23/2021 18:13:33 11/24/1911/23/2021 25OH VITAM IN D 25OH vitamin D 26.4 NG/mL (20-50 ) Not Available [facility] (Centralized Electronic Ordering - All Locations) Patient Can Go To The Location Of Their Choice, 11/23/2021 18:13:34 11/24/1911/23/2021 ANTI- HEPAT ITIS C anti-hepatit is C (neg) normal NEGAT MALI Refer ence range : Negat mali This test was perfo rmed on the Abbot t Archi tect immun oassa y syste m. Not Available [facility] (Centralized Electronic Ordering - All Locations) Patient Can Go To The Location Of Their Choice, 11/23/2021 21:21:02 01/25/2001/24/2023 COMPL ETE CBC WITH DIFF WBC 4.9 K/mm3 (4.0-1 1.0) Not Available [facility] (Centralized Electronic Ordering - All Locations) Patient Can Go To The Location Of Their Choice, 01/24/2023 16:23:34 01/25/2001/24/2023 COMPL ETE CBC WITH DIFF RBC 4.73 M/mm3 (4.70- 6.10) Not Available [facility] (Centralized Electronic Ordering - All Locations) Patient Can Go To The Location Of Their Choice, 01/24/2023 16:23:34 01/25/2001/24/2023 COMPL ETE CBC WITH DIFF HGB 15.1 gm/dL (13.7- 17.1) Not Available [facility] (Centralized Electronic Ordering - All Locations) Patient Can Go To The Location Of Their Choice, 01/24/2023 16:23:34 01/25/2001/24/2023 COMPL ETE CBC WITH DIFF HCT 45.5 % (40.5- 50.0) Not Available [facility] (Centralized Electronic Ordering - All Locations) Patient Can Go To The Location Of Their Choice, 01/24/2023 16:23:34 01/25/2001/24/2023 COMPL ETE CBC WITH DIFF MCV 96.2 fL (80.0- 94.0) high Not Available [facility] (Centralized Electronic Ordering - All Locations) Patient Can Go To The Location Of Their Choice, 01/24/2023 16:23:34 01/25/2001/24/2023 COMPL ETE CBC WITH DIFF MCH 31.9 pg (27.0- 34.0) Not Available [facility] (Centralized Electronic Ordering - All Locations) Patient Can Go To The Location Of Their Choice, 01/24/2023 16:23:34 01/25/2001/24/2023 COMPL ETE CBC WITH DIFF MCHC 33.2 g/dL (33.0- 37.0) Not Available [facility] ([facility]ized Electronic Ordering - All Locations) Patient Can Go To The Location Of Their Choice, 01/24/2023 16:23:34 01/25/2001/24/2023 COMPL ETE CBC WITH DIFF plt 193 K/mm3 (150-4 60) Not Available [facility] (Centralized Electronic Ordering - All Locations) Patient Can Go To The Location Of Their Choice, 01/24/2023 16:23:34 01/25/2001/24/2023 COMPL ETE CBC WITH DIFF RDW-SD 47.4 fL (<47.0 ) high Not Available [facility] (Centralized Electronic Ordering - All Locations) Patient Can Go To The Location Of Their Choice, 01/24/2023 16:23:34 01/25/2001/24/2023 COMPL ETE CBC WITH DIFF MPV 10.1 fL (9.4-1 2.4) Not Available [facility] (Centralized Electronic Ordering - All Locations) Patient Can Go To The Location Of Their Choice, 01/24/2023 16:23:34 01/25/2001/24/2023 COMPL ETE CBC WITH DIFF automated NRBC 0.0 #/100 _WBC' s Not Available [facility] (Centralized Electronic Ordering - All Locations) Patient Can Go To The Location Of Their Choice, 01/24/2023 16:23:34 01/25/2001/24/2023 COMPL ETE CBC WITH DIFF abs. NRBC 0.0 K/mm3 Not Available [facility] (Centralized Electronic Ordering - All Locations) Patient Can Go To The Location Of Their Choice, 01/24/2023 16:23:34 01/25/2001/24/2023 COMPL ETE CBC WITH DIFF neut # 2.5 K/mm3 (1.3-7 .0) Not Available [facility] (Centralized Electronic Ordering - All Locations) Patient Can Go To The Location Of Their Choice, 01/24/2023 16:23:34 01/25/2001/24/2023 COMPL ETE CBC WITH DIFF lymph # 1.8 K/mm3 (0.8-3 .1) Not Available [facility] (Centralized Electronic Ordering - All Locations) Patient Can Go To The Location Of Their Choice, 01/24/2023 16:23:34 01/25/2001/24/2023 COMPL ETE CBC WITH DIFF mono# 0.5 K/mm3 (0.4-1 .3) Not Available [facility] (Centralized Electronic Ordering - All Locations) Patient Can Go To The Location Of Their Choice, 01/24/2023 16:23:34 01/25/2001/24/2023 COMPL ETE CBC WITH DIFF eo # 0.1 K/mm3 (0.0-0 .4) Not Available [facility] (Centralized Electronic Ordering - All Locations) Patient Can Go To The Location Of Their Choice, 01/24/2023 16:23:34 01/25/2001/24/2023 COMPL ETE CBC WITH DIFF baso # 0.0 K/mm3 (0.0-0 .1) Not Available [facility] (Centralized Electronic Ordering - All Locations) Patient Can Go To The Location Of Their Choice, 01/24/2023 16:23:34 01/25/2001/24/2023 COMPL ETE CBC WITH DIFF abs. imm gran 0.0 K/mm3 Not Available [facility] ([facility] Order[facility] - All Locations) Patient Can Go To The Location Of Their Choice, 01/24/2023 16:23:34 01/25/2001/24/2023 COMPL ETE CBC WITH DIFF neut 50.8 % (44-76 ) Not Available [facility] (Centralized Electronic Ordering - All Locations) Patient Can Go To The Location Of Their Choice, 01/24/2023 16:23:01/25/2001/24/2023 COMPL ETE CBC WITH DIFF lymph 37.5 % (15-43 ) Not Available [facility] (Centralized Electronic Ordering - All Locations) Patient Can Go To The Location Of Their Choice, 01/24/2023 16:23:34 01/25/2001/24/2023 COMPL ETE CBC WITH DIFF monocyte 9.5 % (4.5-1 0.5) Not Available [facility] (Centralized Electronic Ordering - All Locations) Patient Can Go To The Location Of Their Choice, 01/24/2023 16:23:34 01/25/2001/24/2023 COMPL ETE CBC WITH DIFF eo 1.6 % (0-6) Not Available [facility] (Centralized Electronic Ordering - All Locations) Patient Can Go To The Location Of Their Choice, 01/24/2023 16:23:34 01/25/2001/24/2023 COMPL ETE CBC WITH DIFF baso 0.2 % (0-2) Not Available [facility] (Centralized Electronic Ordering - All Locations) Patient Can Go To The Location Of Their Choice, 01/24/2023 16:23:34 01/25/2001/24/2023 COMPL ETE CBC WITH DIFF imm gran 0.4 % Not Available [facility] (Centralized Electronic Ordering - All Locations) Patient Can Go To The Location Of Their Choice, 01/24/2023 16:23:34 01/25/2001/24/2023 COMPR EHENS MALI METAB OLIC PANL glucose 111 mg/dL (70-99 ) high Not Available [facility] (Centralized Electronic Ordering - All Locations) Patient Can Go To The Location Of Their Choice, 01/24/2023 17:27:43 01/25/2001/24/2023 COMPR EHENS MALI METAB OLIC PANL BUN 11 mg/dL (6-20) Not Available [facility] (Centralized Electronic Ordering - All Locations) Patient Can Go To The Location Of Their Choice, 01/24/2023 17:27:43 01/25/2001/24/2023 COMPR EHENS MALI METAB OLIC PANL creatinine 1.1 mg/dL (0.7-1 .2) Not Available [facility] (Centralized Electronic Ordering - All Locations) Patient Can Go To The Location Of Their Choice, 01/24/2023 17:27:43 01/25/2001/24/2023 COMPR EHENS MALI METAB OLIC PANL sodium 142 mmol/ L (133-1 45) Not Available [facility] (Centralized Electronic Ordering - All Locations) Patient Can Go To The Location Of Their Choice, 01/24/2023 17:27:43 01/25/2001/24/2023 COMPR EHENS MALI METAB OLIC PANL potassium 4.6 mmol/ L (3.6-5 .2) Not Available [facility] (Centralized Electronic Ordering - All Locations) Patient Can Go To The Location Of Their Choice, 01/24/2023 17:27:43 01/25/2001/24/2023 COMPR EHENS MALI METAB OLIC PANL chloride 108 mmol/ L (98-10 7) high Not Available [facility] (Centralized Electronic Ordering - All Locations) Patient Can Go To The Location Of Their Choice, 01/24/2023 17:27:43 01/25/2001/24/2023 COMPR EHENS MALI METAB OLIC PANL bicarbonate 25 mmol/ L (22-29 ) Not Available [facility] (Centralized Electronic Ordering - All Locations) Patient Can Go To The Location Of Their Choice, 01/24/2023 17:27:43 01/25/2001/24/2023 COMPR EHENS MALI METAB OLIC PANL anion gap 9 (4-17) Not Available [facility] (Centralized Electronic Ordering - All Locations) Patient Can Go To The Location Of Their Choice, 01/24/2023 17:27:43 01/25/2001/24/2023 COMPR EHENS MALI METAB OLIC PANL albumin 4.5 gm/dL (3.4-4 .8) Not Available [facility] ([facility] Electronic Ordering - All Locations) Patient Can Go To The Location Of Their Choice, 01/24/2023 17:27:43 01/25/2001/24/2023 COMPR EHENS MALI METAB OLIC PANL calcium 9.5 mg/dL (8.6-1 0.5) Not Available [facility] (Centralized Electronic Ordering - All Locations) Patient Can Go To The Location Of Their Choice, 01/24/2023 17:27:43 01/25/2001/24/2023 COMPR EHENS MALI METAB OLIC PANL bilirubin,to latesha 0.5 mg/dL (0-1.2 ) Not Available [facility] (Centralized Electronic Ordering - All Locations) Patient Can Go To The Location Of Their Choice, 01/24/2023 17:27:43 01/25/2001/24/2023 COMPR EHENS MALI METAB OLIC PANL total protein 6.8 gm/dL (6.2-8 .2) Not Available [facility] (Centralized Electronic Ordering - All Locations) Patient Can Go To The Location Of Their Choice, 01/24/2023 17:27:43 01/25/2001/24/2023 COMPR EHENS MALI METAB OLIC PANL Ag ratio 2.0 Not Available [facility] (Centralized Electronic Ordering - All Locations) Patient Can Go To The Location Of Their Choice, 01/24/2023 17:27:43 01/25/2001/24/2023 COMPR EHENS MALI METAB OLIC PANL AST 26 U/L (0-40) Not Available [facility] (Centralized Electronic Ordering - All Locations) Patient Can Go To The Location Of Their Choice, 01/24/2023 17:27:43 01/25/2001/24/2023 COMPR EHENS MALI METAB OLIC PANL alk phos 90 U/L (40-12 9) Not Available [facility] (Centralized Electronic Ordering - All Locations) Patient Can Go To The Location Of Their Choice, 01/24/2023 17:27:43 01/25/2001/24/2023 COMPR EHENS MALI METAB OLIC PANL ALT 20 U/L (0-41) Not Available [facility] (Centralized Electronic Ordering - All Locations) Patient Can Go To The Location Of Their Choice, 01/24/2023 17:27:43 01/25/2001/24/2023 COMPR EHENS MALI METAB OLIC PANL estimated GFR creatinine 79 mL/mi n/1.7 3_M2 Creat inine based estim ated glome rular filtr ation (eGFR ) in adult s is calcu lated using the Natio nal Kidne y Found ation recom clive d 2020 CKD-E PI equat ion. Estim ates GFR from serum creat inine , age and sex. Not Available [facility] (Centralized Electronic Ordering - All Locations) Patient Can Go To The Location Of Their Choice, 01/24/2023 17:27:43 01/25/2001/24/2023 LIPID PANEL cholesterol, total 203 mg/dL (<200) high Not Available [facility] (Centralized Electronic Ordering - All Locations) Patient Can Go To The Location Of Their Choice, 01/24/2023 17:27:45 01/25/2001/24/2023 LIPID PANEL triglyceride 102 mg/dL (<150) Not Available [facility] (Centralized Electronic Ordering - All Locations) Patient Can Go To The Location Of Their Choice, 01/24/2023 17:27:45 01/25/2001/24/2023 LIPID PANEL HDL chol 52 mg/dL (>39) Not Available [facility] (Centralized Electronic Ordering - All Locations) Patient Can Go To The Location Of Their Choice, 01/24/2023 17:27:45 01/25/2001/24/2023 LIPID PANEL LDL cholesterol, calculated 131 mg/dL (0-130 ) high Not Available [facility] (Centralized Electronic Ordering - All Locations) Patient Can Go To The Location Of Their Choice, 01/24/2023 17:27:45 01/25/2001/24/2023 LIPID PANEL non HDL cholesterol (calc) 151 mg/dL (<160) Not Available [facility] (Centralized Electronic Ordering - All Locations) Patient Can Go To The Location Of Their Choice, 01/24/2023 17:27:45 01/25/2001/24/2023 PSA SCREE N PSA 2.5 NG/mL (0-4) TEST PERFO RMED USING THE VERONICA ELECT Ignite100U MINENeuroMetrix CENCE TOTAL PSA ASSAY . PSA VALUE S OBTAI DIGNA WITH OTHER ASSAY METHO DS OR KITS CANNO T BE USED INTER CASH EABLY . Not Available [facility] (Centralized Electronic Ordering - All Locations) Patient Can Go To The Location Of Their Choice, 01/24/2023 17:43:05 01/25/2001/24/2023 TSH WITH REFLE X TO FT4 TSH 1.09 uIU/m L (0.4-4 .2) Not Available [facility] (Centralized Electronic Ordering - All Locations) Patient Can Go To The Location Of Their Choice, 01/24/2023 17:43:06 01/25/2001/24/2023 25OH VITAM IN D 25OH vitamin D 25.4 NG/mL (20-50 ) Not Available [facility] (Centralized Electronic Ordering - All Locations) Patient Can Go To The Location Of Their Choice, 01/24/2023 17:43:08 01/25/20 23 01/24/2023 HEMOG LOBIN A1C hemoglobin A1C 5.4 % (4.0-5 .6) MONIT ORING : In known diabe tic patie nts, hemog lobin A1c targe ts shoul d be discu ssed with healt h care provi dana. DIAGN OSTIC USE: The Ameri can Diabe mykel Assoc iatio n (ADA) and the World Healt h Organ izati on (WHO) recom mend the use of HbA1c to diagn ose diabe mykel using a thres hold of 6.5%. Patie nts who have an HbA1c betwe en 5.7% and 6.4% are consi dered at incre ased risk for devel oping diabe mykel in the futur e. CAUTI ON: False ly low HbA1c resul ts may be obser lino in patie nts with hemol ytic anemi a, homoz ygous forms of abnor mal hemog lobin (e.g. SS, CC, SC), pregn genaro, recen t blood loss or hemog lobin F great er than 7%. Fruct osami ne may be used as an alter hayden test in these cases . REFER ENCE: ADA: Stand ards of Medic al Care in Diabe mykel 2019, The Journ al of Clini garrison and Appli ed Resea [facility] and Educa tion Volum e 43, Suppl ement 1 Not Available [facility] (Centralized Electronic Ordering - All Locations) Patient Can Go To The Location Of Their Choice, [id number] 01/24/2023 18:35:33 01/20/20 23 01/14/2023 XR, foot, 3 or more view No observ ation record ed. melissa [facility] [place] [address] [address], [place], [address], 02/02/2023 11:02:42 01/20/20 23 01/14/2023 XR, foot, 3 or more view No observ ation record ed. seng [facility] [place] [address] [facility] [address], [place], [address], 01/19/2023 15:37:41 01/20/20 23 01/14/2023 XR, foot, 3 or more view No observ ation record ed. [facility] [address], [address], 01/19/2023 15:37:41 01/20/20 23 01/14/2023 XR, foot, 3 or more view No observ ation record ed. [facility] [address], [address], 01/19/2023 15:37:42 02/03/20 23 01/14/2023 XR, foot, 3 or more view No observ ation record ed. [email or web address] [address], [address], 03/02/2023 16:42:49 02/03/20 23 01/14/2023 XR, foot, 3 or more view No observ ation record ed. [facility] [address], [address], 02/02/2023 23:41:13 02/03/20 23 01/14/2023 XR, foot, 3 or more view No observ ation record ed. [facility] [address], [address], 02/02/2023 23:39:24 02/03/20 23 01/14/2023 XR, foot, 3 or more view No observ ation record ed. [facility] [address], [address], 02/02/2023 23:40:49 04/04/20 24 03/27/2024 US, duple x, retro perit oneum , compl ete No observ ation record ed. [facility] (Medical Records) [address] [place], [address], 06/04/2024 11:43:08 Result Notes None recorded. Problems Name Problem SNOMED Code Status Onset Date Resolution Date Notes Provider Name and Address Organization Details Recorded Time Patient status finding 249125131 Completed 201201/29/2014 RECORDED 11/10/19 13 1:36PM BY CORINA AUSTIN MA, ANNOTATI ON/ADDEN DUM Deneen last [facility] 8 15:58:40 Contact dermatit is 55020498 Active 2013 Not Available [facility] 0 13:05:47 Dizzines s and giddines s 976415224 Completed 201201/29/2014 RECORDED 08/03/19 13 12:59PM BY CORINA AUSTIN MA, ANNOTATI ON/ADDEN DUM Not Available [facility] 4 14:53:28 Malaise and fatigue 561375500 Completed 201309/02/2017 RECORDED 11/28/19 14 12:57PM BY CORINA AUSTIN MA, OFFICE VISIT Deneen last [facility] 8 15:58:51 Adult health examinat ion Completed 201309/02/2017 RECORDED 11/28/19 14 12:58PM BY CORINA AUSTIN MA, OFFICE VISIT Deneen last [facility] 8 15:58:46 Adult health examinat ion Completed 201201/29/2014 RECORDED 11/10/19 13 1:36PM BY CORINA AUSTIN MA, ANNOTATI ON/ADDEN DUM Deneen last [facility] 8 15:58:46 Insomnia 248286567 Completed 201301/29/2014 RECORDED 11/28/19 14 12:57PM BY CORINA AUSTIN MA, ANNOTATI ON/ADDEN DUM Not Available [facility] 4 14:53:28 Patient status finding 411741351 Completed 201309/02/2017 RECORDED 11/28/19 14 12:58PM BY CORINA AUSTIN MA, OFFICE VISIT Deneen last [facility] 8 15:58:40 Panic disorder without agorapho gurpreet 64981935 Active 2013 Not Available [facility] 0 13:05:47 Administ ration of diphther ia, pertussi s, and tetanus vaccine Completed 201309/02/2017 RECORDED 11/28/19 14 1:36PM BY BELKIS MAHARAJ MD, OFFICE VISIT Deneen last, [facility] 8 15:59:08 Disorder of thyroid gland 87373000 Completed 201311/13/2018 Tony Josue PA-C [address] [facility] [place] [place] [address], [place], [address] [facility] 9 11:51:22 Vitamin D deficien cy 06857296 Active 2013 Not Available [facility] 0 13:05:47 Patient status finding 236783399 Completed 201202/21/2014 RECORDED 11/10/19 13 1:36PM BY CORINA AUSTIN MA, ANNOTATI ON/ADDEN DUM Deneen last, [facility] 8 15:58:40 Dizzines s and giddines s 324848965 Completed 201202/21/2014 RECORDED 08/03/19 13 12:59PM BY CORINA AUSTIN MA, ANNOTATI ON/ADDEN DUM Not Available [facility] 4 13:03:30 Insomnia 176013926 Completed 201302/21/2014 RECORDED 11/28/19 14 12:57PM BY CORINA AUSTIN MA, ANNOTATI ON/ADDEN DUM Not Available [facility] 4 13:03:30 Patient status finding 488647872 Completed 201202/22/2014 RECORDED 11/10/19 13 1:36PM BY CORINA AUSTIN MA, ANNOTATI ON/ADDEN DUM Deneen last, [facility] 8 15:58:40 Dizzines s and giddines s 791730893 Completed 201202/22/2014 RECORDED 08/03/19 13 12:59PM BY CORINA AUSTIN MA, ANNOTATI ON/ADDEN DUM Not Available [facility] 4 03:51:49 Insomnia 052374800 Completed 201302/22/2014 RECORDED 11/28/19 14 12:57PM BY CORINA AUSTIN MA, ANNOTATI ON/ADDEN DUM Not Available [facility] 4 03:51:49 Shoulder pain 78753148 Completed 09/02/2017 Deneen last, [facility] 8 15:59:11 Synoviti s of ankle 41634172179 4103 Active 2017 Not Available [facility] 0 13:05:48 Villonod ular synoviti s of subtalar joint 602962920 Completed 201711/15/2018 RIGHT ANKLE Removal Reason: not specific Regina Merrick last [facility] 9 13:36:36 Hashimot o thyroidi tis 73687467 Active 2018 Not Available [facility] 0 13:05:47 Overweig ht 378093260 Active 2018 Not Available [facility] 0 13:05:47 Villonod ular synoviti s of ankle and foot 952272852 Active 2018 Not Available [facility] 0 13:05:47 Pain in left foot 65804556104 9107 Active 2021 Tony Josue PA-C [address] [facility] [address], [place], [address] , [facility] 2 11:02:19 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 108027893 Active 2021 Tony Josue PA-C [address], [place], [address] , [facility] 2 11:02:25 Mixed hyperlip idemia 255191185 Active 2021 Tony Josue PA-C [address], [place], [address] , [facility] 2 16:55:14 History of malignan t basal cell neoplasm of skin 822915881 Active 2022 Tony Josue PA-C [address] [facility] [address], [place], [address] , [facility] 3 11:15:22 Metatars algia of left foot 29695589154 9106 Active 2022 Tony Josue PA-C [address] [facility] [address], [place], [address] , [facility] 3 11:32:51 Bunion 695268542 Active 2022 [place], [facility] 3 16:41:19 Calcanea l spur 99728850 Active 2022 [place], [facility] 3 16:41:49 Anxiety 76471962 Active 2023 Tony Josue PA-C [address] [facility] [place] [address], [place], [address] , [facility] 4 12:11:53 Problem Notes None recorded. Procedures Surgical History Date Name Laterality Status Provider Name and Address Organization Details Recorded Time 07/26/19 23 embolization procedure completed Johanna Rogers MA [facility] 11/15/2022 10:39:16 02/24/20 22 excision of basal cell carcinoma completed Tony Josue PA-C [address] [facility] [place] [address], [place], [address], [facility] 11/15/2022 11:15:09 06/22/20 19 Colonoscopy completed Cecelia Posadas [facility] 06/28/2019 13:10:12 03/14/20 18 Dbrdmt ecz/infected skin<10% completed Eli Méndez MA [facility] 11/13/2018 11:22:26 03/14/20 18 Arthroscopic Surgery completed Cecelia Posadas [facility] 11/14/2018 10:48:37 excision of basal cell carcinoma completed Darling Goncalves MA [facility] 06/04/2024 11:11:37 Imaging Results Imaging Date Name Status LastModified by Organiz ation Details LastModified Time 01/14/2023 XR, foot, [facility] [address], [address], 02/02/2023 11:02:42 01/14/2023 XR, foot, 3 or more view completed [facility] [address], [address], 01/19/2023 15:37:41 01/14/2023 XR, foot, 3 or more view completed [facility] [address], [address], 01/19/2023 15:37:41 01/14/2023 XR, foot, 3 or more view completed [facility] [address], [address], 01/19/2023 15:37:42 01/14/2023 XR, foot, 3 or more view completed [email or web address] [facility] [address], [address], 03/02/2023 16:42:49 01/14/2023 XR, foot, 3 or more view completed [facility] [address], [address], 02/02/2023 23:41:13 01/14/2023 XR, foot, 3 or more view completed [facility] [address], [address], 02/02/2023 23:39:24 01/14/2023 XR, foot, 3 or more view completed [facility] [place] [address], [place], [address], 02/02/2023 23:40:49 03/27/2024 US, duplex, retroperitone um, complete [facility] [address] [facility], [place], [address], 06/04/2024 11:43:08 Procedure Notes None recorded. Medical Equipment None Reported. Allergies Allergen ID Allergen Name Allergen Category Reaction Reaction Severity Criticality Documentation Date Start Date Code Code System Note Provider Name and Address Organization Details Recorded Time Substance with sulfonami de structure and antibacte rial mechanism of action (substanc e) medicatio n hives Not available Not available 10/04/20142013 14737 8003 SNOMED Ariana Justyn-Hodan antunez [facility] 8 11:26:47 Medications Name Sig Start Date Stop Date Status Note LastModified by Organization Details LastModified Time multivita min tablet Take 1 tablet every day by oral route. active Not Available Not Available No t Available doxycycli ne hyclate 100 mg capsule Take 1 capsule twice a day by oral route for 10 days. 10/19 completed Not Available Not Available Not Available citalopra m 10 mg tablet DAILY 03/29 completed RECORDED 03/29/20 13 12:22PM BY BELKIS MAHARAJ MD, ANNOTATI ON/STEPHON HASKINS; Not Available Not Available Not Available meloxicam 15 mg tablet TAKE 1 TABLET BY MOUTH EVERY DAY WITH MEALS FOR 10 DAYS 08/16 completed Not Available Not Available Not Available fluoroura cil 5 % topical cream APPLY TWICE DAILY FOR 4-6 WKS OR UNTIL RED, CRUSTED AND BLEEDING . 11/15 completed Not Available Not Available Not Available ciproflox acin 500 mg tablet TAKE 1 TAB BY MOUTH TWICE A DAY IN THE MORNING AND IN THE EVENING STARTING THE DAY BEFORE PROCEDUR E 11/15 completed Not Available Not Available Not Available alprazola m 0.5 mg tablet Take 1 tablet every day by oral route as needed for 20 days. 11/20 completed not used in a long time Not Available Not Available Not Available citalopra m 20 mg tablet DAILY 2012 active RECORDED 06/05/20 13 1:19PM BY BELKIS MAHARAJ MD, OFFICE VISIT; Not Available Not Available Not Available lorazepam 0.5 mg tablet Take 1 tablet every day by oral route as needed. active Not Available Not Available No t Available tamsulosi n 0.4 mg capsule TAKE 1 CAPSULE BY MOUTH EVERY DAY active Not Available Not Available No t Available phenazopy ridine 100 mg tablet TAKE 1 TABLETS ORAL THREE TIMES A DAY FOR 3 DAYS 11/15 completed Not Available Not Available Not Available mupirocin 2 % topical ointment APPLY TO SURGICAL SITE TWICE A DAY FOR 7-14 DAYS OR UNTIL FULLY HEALED. 11/15 completed Not Available Not Available Not Available lorazepam 1 mg tablet Take 1 tablet every day by oral route for 30 days. 03/09 completed Not Available Not Available Not Available methylpre dnisolone 4 mg tablets in a dose pack TAKE 6 TABLETS ON DAY 1 DIRECTED ON PACKAGE AND DECREASE BY 1 TAB EACH DAY FOR A TOTAL OF 6 DAYS 11/15 completed Not Available Not Available Not Available diazepam 5 mg tablet TAKE 1-2 TABLET BY MOUTH 1 HOUR PRIOR TO PROCEDUR E (UPON ARRIVAL TO OFFICE) 11/15 completed Not Available Not Available Not Available oxycodone 5 mg tablet 11/13 completed Not Available Not Available Not Available nitrofura ntoin monohydra te/macroc rystals 100 mg capsule TAKE 1 CAPSULES ORAL TWICE A DAY FOR 5 DAYS 11/15 completed Not Available Not Available Not Available Flucelvax Quad 2673-4257 (PF) 60 mcg (15 mcg x 4)/0.5 mL IM syringe 11/13 completed Not Available Not Available Not Available Vitals Date Recorded Body height Provider Name an d Address Organization Details Last Updated DateTime 11/20/2021 175.26 cm Eli Méndez MA [facility] [place] 11/20/2021 14:09:21 Date Recorded Body height Body weight Heart rate Oxygen saturation Oxygen saturation in Arterial blood by Pulse oximetry Body temperature Systolic blood pressure Diastolic blood pressure Provider Name and Address Organization Details Last Updated DateTime 05/01/202 3 175.26 cm 94811.3 6 g 69 /min 96 % 96 % 97.2 [degF] 133 mm[Hg] 78 mm[Hg] Johanna Rogers MA [facility] 3 10:38:50 Date Recorded Body height Body mass index (BMI) Body weight Heart rate Oxygen saturation Oxygen saturation in Arterial blood by Pulse oximetry Body temperature Heart rate Systolic blood pressure Diastolic blood pressure Systolic blood pressure Diastolic blood pressure Provider Name and Address Organization Details Last Updated DateTime 3 175.26 cm 25.8 kg/m2 64175.2 3 g 51 /min 98 % 98 % 97.8 [degF] 69 /min 149 mm[Hg] 73 mm[Hg] 138 mm[Hg] 76 mm[Hg] Ariana antunez MA [facility] 3 09:42:02 Date Recorded Body height Body mass index (BMI) Body weight Heart rate Oxygen saturation Oxygen saturation in Arterial blood by Pulse oximetry Body temperature Systolic blood pressure Diastolic blood pressure Provider Name and Address Organization Details Last Updated DateTime 4 175.26 cm 26.9 kg/m2 07095.2 1 g 69 /min 97 % 97 % 97.6 [degF] 136 mm[Hg] 77 mm[Hg] Darling Goncalves MA [facility] 4 11:12:45 Social History Question Answer Notes LastModified by Organizat ion Details LastModified Time Tobacco Smoking Status Never Smoker Monique last [facility] 12/03/2014 13:58:26 Do You Have An Advance Directive? No Information not available 10/19/2021 What Is Your Level Of Alcohol Consumption? Occasional Information not available 12/03/2014 Is Blood Transfusion Acceptable In An Emergency? Yes Information not available 11/13/2018 What Is Your Level Of Caffeine Consumption? Moderate 1-2 Daily Information not available 06/04/2024 How Much Tobacco Do You Chew? None Information not available 03/09/2018 Are You Currently Employed? Yes Information not available 12/03/2014 What Type Of Diet Are You Following? REGULAR Calorie Reduction Diet Information not available 11/15/2022 Which Illicit Or Recreational Drugs Have You Used? None Information not available 03/09/2018 Do You Or Have You Ever Used E-cigarettes Or Vape? 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 With Others (Мария) And 1 Dog Information not available 06/04/2024 Do You Take Precautions To Prevent Distracted Driving? Yes Information not available 03/09/2018 How Often Do You Need To Have Someone Help You When You Read Instructions, Pamphlets, Or Other Written Material From Your Doctor Or Pharmacy? Never Information not available 03/09/2018 Have You Served In The ? No Information not available 11/13/2018 What Was The Date Of Your Most Recent Tobacco Screening? 06/04/2024 Information not available 06/04/2024 How Many Children Do You Have? 3 Information not available 12/03/2014 Do You Use Protection During Sex? No Information not available 03/09/2018 Do You Use Your Seat Belt Or Car Seat Routinely? Yes Information not available 10/19/2021 Seat Belts Used Routinely Yes Information not available 10/19/2021 Are You Sexually Active? Yes Information not available 03/09/2018 Smoke Alarm In Home Yes Information not available 10/19/2021 Do You Have Smoke And Carbon Monoxide Detectors In Your Home? Yes Information not available 10/19/2021 At What Age Did You Start Smoking Tobacco? 0 Information not available 03/09/2018 Are You Passively Exposed To Smoke? No Information not available 03/09/2018 How Much Tobacco Do You Smoke? No Information not available 03/09/2018 Do You Use Any Illicit Or Recreational Drugs? No Information not available 11/15/2022 Do You Use Sunscreen Routinely? Yes Information not available 11/13/2018 How Many Years Have You Smoked Tobacco? 0 Information not available 03/09/2018 Do You Or Have You Ever Used Any Other Forms Of Tobacco Or Nicotine? No Information not available 11/15/2022 Sex: Unknown Functional Status Question Answer Note LastModified by Organizat ion Details LastModified Time Are you able to walk? YESWOREST Information not available 10/19/2021 Are you able to care for yourself? Yes Information not available 03/09/2018 What is your exercise level? Moderate 2-3 days a week Information not available 06/04/2024 Mental Status None recorded. Family History Relationship Description Onset Age of this Age Resolved Age Notes LastModified by Organization Details LastModified Time Mother Well adult 65 [email or web address] Not av ailable 10/19/2021 10:02:24 Father Coronary arterioscler osis prosta te cancer [email or web address] Not available 10/19/2021 10:10:34 Father Atrial fibrillation [email or web address] Not available 10/19/2021 10:02:24 Father Anxiety [email or web address] Not avail able 10/19/2021 10:02:24 Father Bipolar disorder 72 long psych hx /now dx'd with bipola r [place] [facility] [email or web address] Not available 10/19/2021 10:02:24 Father Depressive disorder [email or web address] Not available 10:02:24 Notes:+ fh P Ca (father), no fh CRC Medical History Condition Response Anxiety Disorder Y Muscle, Joint, or Bone Problems Y Chicken Pox Y Immunizations Vaccine Type Date Status Note Provider Nam e and Address Organization Details Recorded Time influenza, unspecified formulation 4 completed Cecelia last [facility] 05/15/2020 13:13:45 Influenza, split virus, quadrivalent, PF 0 completed Cecelia last [facility] 05/15/2020 13:13:45 Influenza, MDCK, quadrivalent, PF 8 completed Darling Goncalves [place], [facility] 10/19/2021 10:22:28 COVID-19, mRNA, LNP-S, PF, 30 mcg/0.3 mL dose 1 completed Darlingsiddhartha Fairchildjohn [place], [facility] 10/19/2021 10:22:28 COVID-19, mRNA, LNP-S, PF, 30 mcg/0.3 mL dose 1 completed Darling Goncalves [place], [facility] 10/19/2021 10:22:28 COVID-19, mRNA, LNP-S, PF, 100 mcg/0.5mL dose or 50 mcg/0.25mL dose 1 [facility] 10:22:28 Influenza, MDCK, quadrivalent, PF 2 completed [place] Crespo, [facility] 11/15/2022 10:32:03 Influenza, MDCK, quadrivalent, PF 3 [facility] 08/16/[facility]23 15:20:50 Tdap 4 completed Cecelia Posadas [facility] 05/15/2020 13:13:45 Influenza, split virus, quadrivalent, PF 0 completed Not Available [employer] 08/04/2019 02:22:10 Influenza, split virus, trivalent, PF 4 completed Tony Josue PA-C [address], [address], [facility] 06/04/2024 12:11:51 Past Encounters Encounter ID Performer Location Encounter Start Date Encounter Closed Date Diagnosis/Indication Diagnosis SNOMED-CT Code Diagnosis ICD10 Code Diagnosis Note [id number] autoEComm erce [address] [facility] [address] [place] [address] 09/01/2010 00:00:00 [id number] autoEComm erce 3640 [facility] [address] [place], [place] [address] 12/17/2011 00:00:00 [id number] autoEComm erce 36[address] [facility] [address] [place], [place] [address] 08/03/2012 00:00:00 [id number] autoEComm erce 36[address] [facility] [address] [place], [place] [address] 11/09/2012 00:00:00 [id number] autoEComm erce 36[address] [facility] [address] [place], [place] [address] 03/12/2013 00:00:00 [id number] autoEComm erce 36[address] [facility] [address] [place] [address] 06/05/2013 00:00:00 [id number] autoEComm erce 36[address] [facility] [address] [place] [address] 11/27/2013 00:00:00 [id number] Main Office [address] [address] [place] [address] 12/03/2014 13:47:56 12/03/2014 14:48:43 Adult health examination [id number] Shoulder pain 46343943 Panic diso rder without agoraphobia 65663791 pt uses clonazepam rarely. off of SSRI/ doing well/ not an active issue now. [id number] Belkis galindo Main Office [address] [address] [place] [address] 09/03/2016 12:40:15 09/03/2016 14:22:14 Panic disorder 696365262 F41.0 Insomnia 716544147 G47.0 0 [id number] Belkis galindo Main Office [address] [address] [place] [address] 09/02/2017 15:14:59 09/02/2017 16:42:51 Disorder of thyroid gland 31574049 E07.9 Fatigue 78146559 R53.83 Hyperlipidemia 26204599 E78.5 [id number] Regina Sin Main Office [address] [address] [place] [address] 03/09/2018 10:50:39 03/09/2018 11:49:11 Pre-surgery evaluation 245618154 Z01.818 He is low risk and is cleared for his upcoming surgery. Pigmented villonodular synovitis of ankle joint 284417749 M12.271 [id number] Regina Sin Main Office 3640 [facility] [address] [place] [address] 11/13/2018 10:54:18 11/13/2018 12:12:12 Adult health examination 726917719 Z00.00 Screening for malignant neoplasm of colon 061711944 Z12.11 Villonodul ar synovitis of subtalar joint 660172674 M12.271 sp surgery last fall - cont to f/u c ortho Mixed hyperlipidemia 267 421800 E78.2 rec less red meat and low carb diet -- initially rev. ascvd risk c pt Vitamin D deficiency 347 33450 E55.9 Suad thyroiditis 21 428311 E06.3 Body mass index 25-29 - overweight 706504453 Z68.28 Impaired f asting glycemia 729358824 R73.01 Overweight 491206365 E66 .3 [id number] Regina Sin Main Office 3640 [facility] [address] [place] [address] 08/02/2019 11:28:56 08/02/2019 12:31:16 Needs influenza immunization 982901858 Z23 Cellulitis of lower limb 874267917 L03.115 will tx with doxy to cover cellulitis and lyme though tick is large, very unlikley Anxiety 45203127 F41.9 use prn Tick bite 30099415 W57.X XXA no need for testing see above Insect bit e to leg - nonvenomous 056333756 S80.861A [id number] Tony Josue PA-C Main Office 36[address] [facility] [address] [place] [address] 10/19/2021 10:01:02 10/19/2021 11:15:34 Adult health examination 601200689 Z00.00 Mixed hyperlipidemia 267 372307 E78.2 rec less red meat and low carb diet -- initially rev. 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 see therapist Skin lesion 22585649 L98 .9 Hepatitis C screening 41 2650519 Z11.59 Varicella vaccination 68 972088 Z23 Pain in left foot 232747 5671 31332 M79.672 periodical ly, fernando from ski boot / sandal - x ~ 3 yrs - will get podiatry eval [id number] Brando Bernabe MD [facility] [address] [place] [address] 11/20/2021 10:31:13 11/23/2021 08:42:37 Cough 92944167 R05.1 [id number] Tony Josue PA-C Main Office [address] [place] [address] 11/15/2022 10:20:53 11/15/2022 11:47:52 Adult health examination 811561449 Z00.00 History of malignant basal cell neoplasm of skin 170558268 Z85.828 s/p resection 8.9.22, cont f/u c ne derm q yr Benign pro static hyperplasia with outflow obstruction 160627188 N40.1 will get uro eval and check psa 5.23 - better p prostate embolizati on c ne vascular, does not wish to go back downstairs to uro - will get eval c another group Nocturia 507791561 R35.1 Mixed hyperlipidemia 267 066505 E78.2 rec less red meat and low carb diet -- initially rev. ascvd risk c pt Vitamin D deficiency 347 79663 E55.9 Fatigue 13469067 R53.83 Impaired f asting glycemia 020422007 R73.01 Metatarsal darrell of left foot 9359585536 69361 M77.42 will get ortho eval [id number] Erendira Tinoco MD Main Office [address] [place] [address] 11/30/2022 09:24:29 11/30/2022 10:06:00 Metatarsalgia 45103012 M77.41 Suspected Metatarsal giaAdvised warm soaks.NSAI D given, aware not to take with any other otc NSAID. Reminded to get PE labs.Podia try referral given so they can eval for foot mechanics. Will also get xray to ensure no stress fx. Pain in left foot 181654 6874 21845 M79.672 Has been having ongoing issues on left foot requesting xray given that he is having right foot done. [id number] Tony Josue PA-C [facility] [address] [facility] [place] [place] [address] [facility] [place] [address] 08/16/2023 15:02:42 08/16/2023 16:23:13 Benign prostatic hyperplasia with outflow obstruction 828353059 N40.1 will get uro eval and check psa 5.23 - better p prostate embolizati on c ne vascular, does not wish to go back downstairs to uro - will get eval c another group 1.24 - pt states has never been on flomaxpend ing see new urologist [place] going on vacation in 2 wks - requests trial of med to help (not able to urinate on plane in past)noctu pal x 2/night lately [id number] Tony Josue PA-C Main Office 3640 [facility] [address] [place] [address] 06/04/2024 10:54:41 06/04/2024 12:11:20 Adult health examination 197203562 Z00.00 colon utd Needs infl uenza immunization 039371636 Z23 19 YEARS AND OLDER ONLY Benign pro static hyperplasia with outflow obstruction 261917687 N40.1 will get uro eval and check psa 5.23 - better p prostate embolizati on c ne vascular, does not wish to go back downstairs to uro - will get eval c another group 1.24 - pt states has never been on flomaxpend ing see new urologist [place] going on vacation in 2 wks - requests trial of med to help (not able to urinate on plane in past)noctu pal x 2/night lately 11.24 - stable, cont f/u c uro Suad thyroiditis 21 635433 E06.3 History of malignant basal cell neoplasm of skin 648689236 Z85.828 stable - s/p resection 8.9.22, cont f/u c ne derm q yr Mixed hyperlipidemia 267 796309 E78.2 rec less red meat and low carb diet -- initially rev. ascvd risk c pt Body mass index 25-29 - overweight 508912122 E66.3 Z68.26 Impaired f asting glycemia 289406392 R73.01 Anxiety 48960341 F41.9 mild on jes, does a lot of mindfulnes s, does have old rx from [facility] for prn benzo - is running low, rarely uses, requests refill - low abuse potential Health Concerns Section Related Observation LastModified by Organization Detai ls LastModified Time None Recorded Concern Status LastModified by Organization Details LastModified Time None Recorded Advance Directives Directive N: Payers Encounter Date Sequence Insurance Name Policy Number Policy Matute Covered Member ID Matute Member ID Guarantor Name 11/20/2021 1 [id number] Мария P Eddi [id number] Мария Eddi 11/15/2022 1 [id number] Мария P Eddi [id number] Мария Eddi 11/30/2022 1 [id number] Мария P Eddi [id number] Мария Eddi 08/16/2023 1 [id number] [id number] Мария P Eddi [id number] Мария Montague 06/04/2024 1 [id number] [id number] Мария P Eddi [id number] Мария Eddi Notes Date Note Type Note Provider Name and Address Organization Details Recorded Time 11/20/2021 text/html TH visit during COVID-19 pandemic. Patient notes 5d history of cough, nasal congestion, fatigue, sore throat. Home antigen COVID test was negative. Son with similar illness. 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 Notes no fevers, ear pain, purulent nasal congestion. Denies dyspnea. Taking some OTC decongestants and NSAIDS with benefit. Brando Bernabe MD [address] [place] [address], [address], [facility] 11/20/2021 14:44:46 11/15/2022 text/html here for annual pe. Tony Josue PA-C [address] [facility] [place] [place] [address], [place], [address], [facility] 11/15/2022 11:43:16 11/30/2022 text/html Musculoskeletal PainReported bypatient.Location:[facility] foot Quality:sharp;dull Severity:improving Duration:present <1 month Context:overuse; running Alleviating factors:rest Associated Symptoms:no fever; no weak limbs; no tingling; no numbness of the legs/feetNotes:Recent ly started running chief complaint was pain on ball of right foot for ~ 6 days. Has concern wart maybe developing since he had in past. Erendira Tinoco MD [address] [facility] [place] [place] [address], [place], [address], [facility] 11/30/2022 10:09:26 08/16/2023 text/html Video appt.Patie nt c/o urinary urgency when in high altitudes. He will be traveling via plane in 2 weeks. pt states he only gets urgency (more so inability to urinate so felt the urgency to go -- couldn't urinate on the plane, able to do so in airport after) at high altitudes - pending see urologist in [place] in several weeks, wouldn't give him script w/o being seen has never been on flomax curr - has 2 episodes of nocturia Tony Josue PA-C [address] [facility] [place] [place] [address], [place], [address], [facility] 08/16/2023 16:05:50 06/04/2024 text/html here for annual pe. Tony Josue PA-C [address] [address], [place], [address], [facility] 06/04/2024 12:12:18
--- OUTSIDE RECORDS SUMMARY | 2024-09-17 10:31 | XMS_ITS ---
Author Name [facility] Organization Unknown Problems Problem Status Onset Date Problem Type Date of Resolution Source Metatarsalgia active 2023-12-06 ProblemAct ENS_ PODCRCT Pain in left toe(s) active 2023-10-04 ProblemAct ENS_PODCRCT Metatarsalgia active 2023-12-06 ProblemAct ENS_ PODCRCT Tailor's bunion, left foot active 2023-10-04 ProblemAct ENS_PODCRCT 54274477 - Mononeuritis active 2024-01-03 EncounterDiagnosisAct ENS_PO DCRCT
[2024-09-17 11:14] LABS: Prostate Specific Antigen 4.02 ng/mL (<0.05-4.0)
== END 2024-09-17 09:31 | disposition home or self-care (01) ==
LOC: HO.10HDL 09:30
PROVIDERS: Visit Provider Nurse Practitioner Family
DX: R39.9 Unspecified symptoms and signs involving the genitourinary system (principal); Z12.5 Encounter for screening for malignant neoplasm of prostate
CPT/HCPCS: 36415; 84153

== ENCOUNTER 2024-10-08 09:19 | Outpatient (AMB) | payer BC, SELFPAY ==
--- NOTE | 2024-10-08 09:25 | A.OFFVIS_ITS ---
Intake Visit Reasons: 1y/PSA(set) Intake Note: Patient presents today for follow up visit on: Elevated PSA and PSA lab results PSA: 4.02 Urology Medications: none Blood Thinner: none Titrator Required: No Accompanied by: Self / Same As Patient Allergies Sulfa (Sulfonamide Antibiotics) Allergy (Verified 10/08/24 20:16) Hives Medication List - Last Reconciled 10/08/24 by JASON Azevedo No Known Home Meds HPI Comments Details: John is a very pleasant 59-year-old male patient of Dr. Palomares. He has a past medical history of history of basal cell carcinoma, contact dermatitis, BPH without outflow obstruction, hyperlipidemia, vitamin-D deficiency, and Suad's thyroiditis. He presents to the office today for follow-up of his ongoing lower urinary tract symptoms and labile PSA. In discussion with the patient today he reports noting over the last 1-3 months ongoing issues with generalized fatigue and fullness to his chest, esophagus, and neck area. He reports feeling he is unsure if this was related to a common cold and having post viral syndrome. Recent PSA results reviewed with the patient today as noted and trended below: PSAs are as follows: 12/06 2.6, 10/08 3.2, 02/07 3.6, 04/10 2.7, 10/09 4.0 Previous workup has included a retroperitoneal ultrasound 04/10 noting bilateral kidneys with no calculi, lesions, and or hydronephrosis. The bladder is well distended and normal. Bilateral ureteral jets are demonstrated. Pre void bladder volume is approximately 415 mL. Postvoid bladder volume is approximately 160 mL. Prostate is upper limits of normal measuring 28 mL. We discussed variability in PSA and potential causes for this variability/elevat ion. Patient with a previous urological history with [facility] and underwent urodynamics 01/06, cystoscopy 01/06 that noted no strictures, nonobstructing prostate, nonobstructing bladder neck, and mild hyperplasia. It appears patient was to undergo prostate biopsy procedure however this was never completed. He discusses having ongoing intermittent issues with nocturia, weak urinary stream, and urinary pressure however feels symptoms have been manageable independently. He does have a history of some sort of surgical procedure regarding his prostate that sounds like prostate embolization. 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 He currently denies any bothersome urinary issues or concerns. In office urinalysis results reviewed with the patient today. Discussed surveillance monitoring of PSA given family history of prostate cancer and labile/elevated PSA. He otherwise offers no other issues or concerns at this time. Plan I will repeat the PSA test ensuring strict adherence to pre-test instructions. If the PSA remains elevated, evaluation options include prostate biopsy and consideration for an MRI. Understanding unknown external factors that may influence PSA requires continued assessment. Coordination with primary care may facilitate further investigative workup for fatigue as warranted. Patient was informed and verbally consented to the use of an ambient scribe for clinic note documentation during this visit. Discussion Notes I discussed with the patient the potential diagnosis of prostate issues tied to elevated PSA, including benign prostatic hyperplasia or possible malignancy, and the significance of observing PSA trends. The recommendation for repeat testing was given alongside avoiding pre-test activities that can alter results. Options of prostate biopsy, and MRI are outlined should levels remain elevated. We explored the possibility of post-viral fatigue impacting overall health without direct links to urological concerns, advising discussion with primary care for assessment. The patient expressed understanding and agreement with the outlined plan, which centers around consistent and detailed tracking of PSA levels. [facility] Medical History Metatarsalgia of left foot Pain in left foot History of basal cell carcinoma (BCC) Villonodular synovitis of ankle and foot Contact dermatitis Benign prostatic hyperplasia Panic disorder with agoraphobia Overweight Mixed hyperlipidemia Vitamin D deficiency Suad's thyroiditis Surgical History H/O transurethral resection of prostate History of basal cell carcinoma excision Review of Systems Const All systems reviewed & are unremarkable except as noted in HPI and below Reports no additional complaints Eyes Reports no additional complaints ENT Reports no additional complaints Card Reports as per [facility] Resp Reports no additional complaints GI Reports no additional complaints Reports as per [facility] Musc Reports as per [facility] Skin/Breast Reports as per [facility] Neuro Reports no additional complaints Psych Reports no additional complaints Endo Reports as per [facility] Jalil/Lymph Reports no additional complaints Aller/Immun Reports no additional complaints Physical Exam Const General: cooperative, healthy appearing, comfortable, no acute distress, well developed, alert and awake Nutritional Appearance: average body habitus Orientation/consciousness: patient oriented x3 Limitations: no limitations HEENT Head: Yes normal to inspection, Yes normocephalic and Yes atraumatic Ears: hearing grossly normal bilaterally Eyes General: appearance normal, both eyes and all related structures Neck Neck: Yes normal visual inspection and Yes trachea midline Chest Chest palpation & inspection: normal inspection of the chest Resp Effort & Inspection: normal respiratory effort and able to speak in complete sentences Cardio Rate: regular rate GI Inspection: Yes normal to inspection General: Yes no CVA tenderness Back/Spine/Pelvis Back: no CVA tenderness Skin General skin exam: no rashes or lesions noted Neuro General: patient oriented x3 Extrem General: Yes normal to inspection Psych Appearance: grossly normal and well kempt Mental Status: mental status grossly normal Speech and movement: Normal speech and movement present and Clear speech present Affect: normal affect Attitude: cooperative Thought process: Normal thought process present Thought content: Normal thought content present Insight: Fair insight present (Psych) Judgement: Fair judgement present (Psych) Results AMB Urinalysis, Automated UA Leukoctes 0 Silvia/uL Last Edit by myTips on 10/08/24 09:35 UA Nitrite Last Edit by myTips on 10/08/24 09:35 UA Urobilinogen 0.2 mg/dL Last Edit by myTips on 10/08/24 09:35 UA Protein 15 mg/dL Last Edit by [employer]Tips on 10/08/24 09:35 UA pH 7.0 Last Edit by myTips on 10/08/24 09:35 UA Blood 0 Chao/uL Last Edit by myTips on 10/08/24 09:35 UA Specific [place] 1.010 Last Edit by myTips on 10/08/24 09:35 UA Ketone Last Edit by myTips on 10/08/24 09:35 UA Bilirubin 0 mg/dL Last Edit by Gladys Dow on 10/08/24 09:35 UA Glucose 0 mg/dL Last Edit by Gladys Dow on 10/08/24 09:35 Results Reviewed Results Reviewed: Laboratory Last Values Urine pH (Auto) 7.0 10/08/24 09:29 Specific [place] (Auto) 1.010 10/08/24 09:29 Urine Protein (Auto) 15 mg/dL 10/08/24 09:29 Glucose (UA)(Auto) 0 mg/dL 10/08/24 09:29 Urine Blood (Auto) 0 Chao/uL 10/08/24 09:29 Urine Bilirubin (Auto) 0 mg/dL 10/08/24 09:29 Urine Urobilinogen (Auto) 0.2 mg/dL 10/08/24 09:29 Leukocyte Esterase (Auto) 0 Silvia/uL 10/08/24 09:29 Assessment & Plan Assessment & Plan (1) Elevated PSA: Code(s): R97.20 - Elevated prostate specific antigen [PSA] Category: Medical (2) Family history of prostate cancer: Code(s): Z80.42 - Family history of malignant neoplasm of prostate Category: Medical Plan In office urinalysis results reviewed with the patient today; as noted above. Recent PSA results reviewed with the patient today; as noted above. We discussed at length potential causes of elevated PSA as well as further treatment options and risks and benefits of these treatment options. Follow-up with PCP as planned He currently denies any bothersome urinary issues or concerns. He reports be happy with current voiding parameters. Will obtain redraw of PSA with no sex the night before, no caffeine morning of, and no heavy lifting 1-2 days prior. Follow-up in 1 month with lab to be completed prior; or sooner with any issues, concerns, and or questions. Orders: Orders AMB Urinalysis Automated Today Z13.9 - Encounter for screening, unspecified PSA,Total (Free>4and<10) Today R97.20 - Elevated prostate specific antigen [PSA], Z80.42 - Family history of malignant neoplasm of prostate Patient Instructions: The patient had an opportunity to ask questions regarding the treatment plan. All questions were answered. Physical exam, labs, and imaging were discussed and reviewed in detail. As well as risks, benefits, and discussion of treatment choices. No major barriers to understanding were identified. The patient expressed understanding and agreement with the above treatment plan. The patient was made aware they should contact our office by phone for worsening of their current condition, the appearance of new symptoms, or with any questions or concerns. Compliance is encouraged with any medications and follow up testing that is ordered. It is a privilege to be allowed the opportunity to participate in? your urological care.? Again, if you have any questions or concerns If you have any questions or concerns please do not hesitate to contact me. The office is [phone]. This note is constructed using voice recognition software. While every effort has been made to ensure accuracy condenser setter errors may have been included. Yours sincerely, JASON Azevedo Coding Level of Care Code Est Pt Level 4 (81568) Diagnoses Elevated PSA R97.20 Family history of prostate cancer Z80.42
== END 2024-10-08 10:24 | disposition home or self-care (01) ==
LOC: HO.HUSH 09:19
PROVIDERS: PCP Physician Assistant Medical; Visit Provider Nurse Practitioner Family
DX: R97.20 Elevated prostate specific antigen [PSA] (principal); Z80.42 Family history of malignant neoplasm of prostate; Z13.9 Encounter for screening, unspecified
CPT/HCPCS: 99214

== ENCOUNTER → 2024-10-08 09:19 | Outpatient (BNVA) | payer BC, SELFPAY | PROVIDERS: PCP Physician Assistant Medical; Visit Provider Nurse Practitioner Family | DX: R97.20 Elevated prostate specific antigen [PSA] (principal); Z80.42 Family history of malignant neoplasm of prostate | CPT/HCPCS: 81003 ==

== ENCOUNTER 2024-10-15 10:05 | Outpatient (REF) | payer BC, SELFPAY ==
--- OUTSIDE RECORDS SUMMARY | 2024-10-15 11:11 | XMS_ITS ---
Author Organization [facility] Address [address] [place] [address] Care Team Providers Care Supervisor Parking Lot Name Role Phone Tony Palomares PA-C Primary Care Provider Unava ilYuan Medina Unavailable [phone] REASON FOR VISIT wayne inj Encounters Encounter Location Date Provider Diagnosis [facility] [address] [place] [address] 08/30/2023 Yuan Muller Plan Of Treatment No Information Progress Notes * John MONTAGUE JrDOB:[birth year] (58 yo M)Acc No.[id number]:08/30/2023 Patient:?John Montague :1965???Age:58 Y???Sex:Male Address:[address] [place] [address] * true * Date:? Generated for Printi gold/Benson/eTransmitting on:?10/15/2024 11:11 AM EDT
--- OUTSIDE RECORDS SUMMARY | 2024-10-15 11:11 | XMS_ITS | Data Portability ---
Author Organization 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 Patient consented to video & audio visit Patient was located in the [facility]. Provider was located in the office. No other persons participated in the telemedicine visit except for the patient unless otherwise indicated here. {{}} Total time of visit was 18 minutes. pmadden Not available 08/16/2023 16:04:17 10/09/2024 10/09/2024 This service was provided using telemedicine. Patient consented to telephone visit Patient was located in the [facility]. Provider was located in the office. No other persons participated in the telemedicine visit except for the patient unless otherwise indicated here. {{}} Total time of visit was 21 minutes. pmadden Not available 10/09/2024 14:17:33 Plan of Treatment Reminders Order Date Submit Date Provider Last Modified By Organization Details Last Modified Time Details Appointments None record ed. Lab PSA, total, serum or plasma 2024 025 VIBHA [facility] (Centralized Electronic Ordering - All Locations), Patient Can Go To The Location Of Their Choice, [id number] 14:18:51 TSH + free T4, serum 2024 VIBHA [facility] (Centralized Electronic Ordering - All Locations), Patient Can Go To The Location Of Their Choice, 14:18:37 T3, free, serum or plasma 2024 VIBHA [facility] (Centralized Electronic Ordering - All Locations), Patient Can Go To The Location Of Their Choice, 14:18:36 vitami n D, 25-hyd lacy, total, serum 2024 VIBHA [facility], [address], [place], [address], 14:18:52 CBC w/ auto diff 2024 VIBHA [facility] (Centralized Electronic Ordering - All Locations), Patient Can Go To The Location Of Their Choice, 14:18:52 BMP, serum or plasma 2024 VIBHA [facility] (Centralized Electronic Ordering - All Locations), Patient Can Go To The Location Of Their Choice, 14:18:36 erythr ocyte sedime ntatio n rate by drew valentin method 2024 VIBHA [facility] (Centralized Electronic Ordering - All Locations), Patient Can Go To The Location Of Their Choice, 14:18:36 lipid panel, serum 2023 VIBHA [facility] (Centralized Electronic Ordering - All Locations), Patient Can Go To The Location Of Their Choice, 12:12:04 CMP, serum or plasma 2023 VIBHA [facility] (Centralized Electronic Ordering - All Locations), Patient Can Go To The Location Of Their Choice, 12:12:03 CBC w/ auto diff 2023 VIBHA [facility] (Centralized Electronic Ordering - All Locations), Patient Can Go To The Location Of Their Choice, [address] 4 12:12:03 HbA1c (hemog lobin A1c), blood 2023 024 VIBHA [facility] (Centralized Electronic Ordering - All Locations), Patient Can Go To The Location Of Their Choice, [address] 4 12:12:03 TSH, ultra- sensit mali, serum 2023 024 VIBHA [facility] (Centralized Electronic Ordering - All Locations), Patient Can Go To The Location Of Their Choice, [address] 4 12:12:04 HbA1c (hemog lobin A1c), blood 2022 023 VIBHA [facility], [address], [place], [place], [address], 3 18:35:33 lipid panel, serum 2022 023 V[facility], [address], [place], [place], [address], 3 17:27:45 vitami n D, 25-hyd lacy, total, serum 2022 023 V[facility], [address], [address], [place], [address], 3 17:43:08 PSA, serum or plasma - Screen ing 2022 023 [facility], [address], [address], [place], [address], 3 17:43:05 CMP, serum or plasma 2022 023 [facility], [address], [place], [address], 3 17:27:43 TSH, serum or plasma 2022 023 [facility], [address], [address], [place], [address], 3 17:43:07 CBC w/ auto diff 2022 023 [place] [facility], [address] [facility] [address], [place], [address], 3 16:23:34 Referral nutrit ionist /dieti akila referr al 2023 024 Not available 4 12:28:36 podiat rist referr al 2022 023 [email or web address] Not available 3 16:28:40 orthop edic surgeo n referr al 2022 023 [facility], [address] [facility] [address], [place], [address], 3 15:44:46 urolog ist referr ia 2022 023 [email or web address] Timmy Palencia MD, [address] [place], [address], 3 15:46:13 Procedures None record ed. Surgeries None record ed. Imaging XR, foot, 3 or more view 2022 023 [email or web address] In-Office Order, Internal Use Only DO Not Attach Compendium DO Not Attach Compendium, Do Not Delete/merge, [id number] 3 14:04:03 XR, foot, 3 or more view 2022 023 [email or web address] In-Office Order, Internal Use Only DO Not Attach Compendium DO Not Attach Compendium, Do Not Delete/merge, [id number] 3 14:04:04 Medication Orders loraze michael 0.5 mg tablet 2023 024 [facility], [address] [facility], [place], [address], 4 12:12:00 tamsul osin 0.4 mg capsul e 2023 024 hanna [facility], [address] [place], [address], 4 11:09:06 Mobic 15 mg tablet 2022 023 stefanie [facility], [address] [place], [address], 4 15:21:04 Patient Targets Encounter Date Encounter Id Patient Goals Patient Target Last Modified By Organization Details Last Modified Time 06/04/2024 [id number] prison goal of Excess Body Weight Loss % [...] Modified By Organization Details Last Modified Time 11/15/2022 [id number] Prostate Cancer Screening pmadden Not available 11/15/2022 [...] medication. pmadden Not available 11/15/2022 11:28:11 11/30/2022 [id number] metatarsalgia: care instructions [email or web address] Not available 11/30/2022 10:02:46 08/16/2023 [id number] benign prostatic hyperplasia: care instructions pmadden Not available 08/16/2023 16:03:32 Follow up as needed. pmadden Not available 08/16/2023 16:03:14 06/04/2024 [id number] Well Visit 50 to 65: Care Instructions pmadden Not available 06/04/2024 12:11:47 When You Want to Lose Weight: Care Instructions pmadden Not available 06/04/2024 12:11:48 Nutrition Referral and Weight Management Follow-up Information pmadden Not available 06/04/2024 12:11:48 Discussed risks for driving while using this medication. pmadden Not available 06/04/2024 11:46:10 10/09/2024 [id number] costochondritis: care instructions pmadden Not available 10/09/2024 14:18:33 encouraged pt to check outstanding labs as directed pmadden Not available 10/09/2024 14:17:43 Follow up if no improvement or if symptoms worsen. pmadden Not available 10/09/2024 14:15:17 Reason for Referral Urologist Referral for Benig n prostatic hyperplasia with outflow obstruction Referring Physician: Tony Josue, Internal Medicine, Encounter Date: 11/15/2022 Orthopedic Surgeon Referral for Metatarsalgia of left foot Referring Physician: Tony Josue, Internal Medicine, Encounter Date: 11/15/2022 Culinary Specialist Referral for Waite tarsalgia Referring Physician: Erendira Tinoco, Family Medicine, Encounter Date: 11/30/2022 Torch Cutter/dietitian Refer ral for Body mass index 25-29 - overweight Referring Physician: Tony Josue, Internal Medicine, Encounter Date: 06/04/2024 Results Created Date Observation Date Name Description Value Unit Range Abnormal Flag Note LastModifiedBy Organization Detail LastModifiedTime 01/25/2001/24/2023 COMPL ETE CBC WITH DIFF WBC 4.9 K/mm3 (4.0-1 1.0) Not Available [facility] (Centralized Electronic Ordering - All Locations) Patient Can Go To The Location Of Their Choice, [id number] 01/24/2023 16:23:34 01/25/2001/24/2023 COMPL ETE CBC WITH DIFF RBC 4.73 M/mm3 (4.70- 6.10) Not Available [facility] (Centralized Electronic Ordering - All Locations) Patient Can Go To The Location Of Their Choice, [address] 01/24/2023 16:23:34 01/25/2001/24/2023 COMPL ETE CBC WITH [...] 01/24/2023 16:23:01/25/2001/24/2023 COMPL ETE CBC WITH DIFF monocyte 9.5 [...] The Location Of Their Choice, 01/24/2023 17:27:43 01/25/20 23 01/24/2023 COMPR EHENS MALI METAB OLIC PANL BUN [...] The Location Of Their Choice, 01/24/2023 17:27:45 01/25/20 23 01/24/2023 PSA SCREE N PSA 2.5 NG/mL (0-4) TEST PERFO RMED USING THE VERONICA ELECT VERONICA MILLU MINES CENCE TOTAL PSA ASSAY . PSA VALUE [...] The Location Of Their Choice, 01/24/2023 17:43:08 01/25/2001/24/2023 HEMOG LOBIN A1C hemoglobin A1C 5.4 % [...] of [facility] and Appli ed Resea [facility] and Educa tion Volum e 43, Suppl ement 1 Not Available [facility] (Centralized Electronic Ordering - All Locations) Patient Can Go To The Location Of Their Choice, [id number] 01/24/2023 18:35:33 01/20/20 23 01/14/2023 XR, foot, 3 or more view No observ ation record ed. [email or web address] [facility] [address], [address], 02/02/2023 11:02:42 01/20/20 23 01/14/2023 XR, foot, 3 or more view No observ ation record ed. [email or web address] [place] [address], [address], 01/19/2023 15:37:41 01/20/20 23 01/14/2023 XR, foot, 3 or more view No observ ation record ed. [email or web address] [place] [address], [address], 01/19/2023 15:37:41 01/20/20 23 01/14/2023 XR, foot, 3 or more view No observ ation record ed. [email or web address] [place] [address], [address], 01/19/2023 15:37:42 02/03/20 23 01/14/2023 XR, foot, 3 or more view No observ ation record ed. [email or web address] [facility] [place] [address], [address], 03/02/2023 16:42:49 02/03/20 23 01/14/2023 XR, foot, 3 or more view No observ ation record ed. [facility] [place] [address] [place] [facility], [place], [address], 02/02/2023 23:41:13 02/03/20 23 01/14/2023 XR, foot, 3 or more view No observ ation record ed. [facility] [place] [address], [place], [address], 02/02/2023 23:39:24 02/03/20 23 01/14/2023 XR, foot, 3 or more view No observ ation record ed. [facility] [place] [address] [address], [place], [address], 02/02/2023 23:40:49 04/04/20 24 03/27/2024 US, duple x, retro perit oneum , compl ete No observ ation record ed. [facility] [place] (Medical Records) [address] [facility], [place], [address], 06/04/2024 11:43:08 Result Notes None recorded. Problems Name Problem SNOMED Code Status Onset Date Resolution Date Notes Provider Name and Address Organization Details Recorded Time Patient status finding 847313061 Completed 201201/29/2014 RECORDED 11/10/19 13 1:36PM BY CORINA AUSTIN MA, ANNOTATI ON/ADDEN DUM Deneen last [place] - [facility] 8 15:58:40 Contact dermatit is 07598753 Active 2013 Not Available [facility] 0 13:05:47 Dizzines s and giddines s 416192845 Completed 201201/29/2014 RECORDED 08/03/19 13 12:59PM BY CORINA AUSTIN MA, RADHA ON/ADDEN DUM Not Available [facility] 4 14:53:28 Malaise and fatigue 714149297 Completed 201309/02/2017 RECORDED 11/28/19 14 12:57PM BY CORINA AUSTIN MA, OFFICE VISIT Deneen last, [facility] 8 15:58:51 Adult health examinat ion Completed 201309/02/2017 RECORDED 11/28/19 14 12:58PM BY CORINA AUSTIN MA, OFFICE VISIT Deneen last, [facility] 8 15:58:46 Adult health examinat ion Completed 201201/29/2014 RECORDED 11/10/19 13 1:36PM BY CORINA AUSTIN MA, ANNOTATI ON/ADDEN DUM Deneen last, [facility] 8 15:58:46 Insomnia 452215844 Completed 201301/29/2014 RECORDED 11/28/19 14 12:57PM BY CORINA AUSTIN MA, ANNOTATI ON/ADDEN DUM Not Available [facility] 4 14:53:28 Patient status finding 713441807 Completed 201309/02/2017 RECORDED 11/28/19 14 12:58PM BY CORINA AUSTIN MA, OFFICE VISIT Deneen last, [facility] 8 15:58:40 Panic disorder without agorapho gurpreet 70903926 Active 2013 Not Available [facility] 0 13:05:47 Administ ration of diphther ia, pertussi s, and tetanus vaccine Completed 201309/02/2017 RECORDED 11/28/19 14 1:36PM BY BELKIS MAHARAJ MD, OFFICE VISIT Deneen last, [facility] 8 15:59:08 Disorder of thyroid gland 05664633 Completed 201311/13/2018 Tony Josue PA-C [address] [address], [place], [address] , [facility] 9 11:51:22 Vitamin D deficien 46953329 Active 2013 Not Available [facility] 0 13:05:47 Patient status finding 072142588 Completed 201202/21/2014 RECORDED 11/10/19 13 1:36PM BY CORINA AUSTIN MA, ANNOTATI ON/ADDEN DUM Deneen last [facility] 8 15:58:40 Dizzines s and giddines s 701282558 Completed 201202/21/2014 RECORDED 08/03/19 13 12:59PM BY CORINA AUSTIN MA, ANNOTATI ON/ADDEN DUM Not Available [facility] 4 13:03:30 Insomnia 670087534 Completed 201302/21/2014 RECORDED 11/28/19 14 12:57PM BY CORINA AUSTIN MA, ANNOTATI ON/ADDEN DUM Not Available [facility] 4 13:03:30 Patient status finding 094178538 Completed 201202/22/2014 RECORDED 11/10/19 13 1:36PM BY CORINA AUSTIN MA, ANNOTATI ON/ADDEN DUM Deneen last [facility] 8 15:58:40 Dizzines s and giddines s 033058022 Completed 201202/22/2014 RECORDED 08/03/19 13 12:59PM BY CORINA AUSTIN MA, ANNOTATI ON/ADDEN DUM Not Available [facility] 4 03:51:49 Insomnia 550150028 Completed 201302/22/2014 RECORDED 11/28/19 14 12:57PM BY CORINA AUSTIN MA, ANNOTATI ON/ADDEN DUM Not Available [facility] 4 03:51:49 Shoulder pain 77282798 Completed 09/02/[address] 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 249773667 Active 2018 Not Available [facility] 0 13:05:47 Pain in left foot 26277083129 9107 Active 2021 Tony Josue PA-C [address], [place], [address] , [facility] 2 11:02:19 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 881051176 Active 2021 Tony Josue PA-C [address], [place], [address] , [facility] 2 11:02:25 Mixed hyperlip idemia 218969134 Active 2021 Tony Josue PA-C [address], [place], [address] , [facility] 2 16:55:14 History of malignan t basal cell neoplasm of skin 008736501 Active 2022 Tony Josue PA-C [address], [place], [address] , [facility] 3 11:15:22 Metatars algia of left foot 94611631281 9106 Active 2022 Tony Josue PA-C [address], [place], [address] , [facility] 3 11:32:51 Bunion 451289132 Active 2022 [place], [facility] 3 16:41:19 Calcanea l spur 45355244 Active 2022 [place], [facility] 3 16:41:49 Anxiety 60969372 Active 2023 Tony Josue PA-C [address] [facility] [address], [place], [address] , [facility] 4 12:11:53 Prostate specific antigen above referenc e range 212740441 Active 2024 Tony Josue PA-C [address] [address], [place], [address] , [facility] 5 14:00:41 Problem Notes None recorded. Procedures Surgical History Date Name Laterality Status Provider Name and Address Organization Details Recorded Time 07/26/19 23 embolization procedure completed Johanna Rogers MA [facility] 11/15/2022 10:39:16 02/24/20 22 excision of basal cell carcinoma completed Tony Josue PA-C [address] [address], [place], [address], [facility] 11/15/2022 11:15:09 06/22/20 19 Colonoscopy completed Cecelia Posadas [facility] 06/28/2019 13:10:12 03/14/20 18 Dbrdmt ecz/infected skin<10% completed Eli Méndez MA [facility] 11/13/2018 11:22:26 03/14/20 18 Arthroscopic Surgery completed Cecelia Posadas [facility] 11/14/2018 10:48:37 excision of basal cell carcinoma completed Darling Goncalves MA [facility] 06/04/2024 11:11:37 Imaging Results Imaging Date Name Status LastModified by Organiz ation Details LastModified Time 01/14/2023 XR, foot, 3 or [facility] [address], [address], 02/02/2023 11:02:42 01/14/2023 XR, foot, 3 or more view completed [facility] [address], [address], 01/19/2023 15:37:41 01/14/2023 XR, foot, 3 or more view completed [facility] [address], [address], 01/19/2023 15:37:41 01/14/2023 XR, foot, 3 or more view completed [facility] [address], [address], 01/19/2023 15:37:42 01/14/2023 XR, foot, 3 or more view completed [email or web address] [facility] [address], [address], 03/02/2023 16:42:49 01/14/2023 XR, foot, 3 or more view completed [facility] [address], [address], 02/02/2023 23:41:13 01/14/2023 XR, foot, 3 or more view completed [facility] [address], [address], 02/02/2023 23:39:24 01/14/2023 XR, foot, 3 or more view completed [facility] [address], [address], 02/02/2023 23:40:49 03/27/2024 US, duplex, retroperitone um, complete completed [facility] [place] (Medical Records) [address] [place] [address], [address], 06/04/2024 11:43:08 Procedure Notes None recorded. Medical Equipment None Reported. Allergies Allergen ID Allergen Name Allergen Category Reaction Reaction Severity Criticality Documentation Date Start Date Code Code System Note Provider Name and Address Organization Details Recorded Time Substance with sulfonami de structure and antibacte rial mechanism of action (substanc e) medicatio n hives Not available Not available 10/04/20142013 17332 8003 SNOMED Ariana Justyn-Hodan antunez MA [facility] [...] 13 12:22PM BY BELKIS MAHARAJ MD, ANNOTATI ON/ADDEN DUM; Not Available Not Available Not Available meloxicam [...] TO SURGICAL SITE TWICE A DAY FOR 3 TO 4 WEEKS UNTIL FULLY HEALED active Not Available Not Available No t Available lorazepam 1 mg tablet Take 1 [...] Available Not Available Not Available Flucelvax Quad 4756-3255 (PF) 60 mcg (15 mcg x 4)/0.5 mL IM syringe 11/13 completed Not Available Not Available Not Available Vitals Date Recorded Body height Body weight Heart rate Oxygen saturation Oxygen saturation in Arterial blood by Pulse oximetry Body temperature Systolic blood pressure Diastolic blood pressure Provider Name and Address Organization Details Last Updated DateTime 3 175.26 cm 03519.3 6 g 69 /min 96 % 96 % 97.2 [degF] 133 mm[Hg] 78 mm[Hg] Johanna Rogers MA [facility] 3 10:38:50 Date Recorded Body height Body mass index (BMI) Body weight Heart rate Oxygen saturation Oxygen saturation in Arterial blood by Pulse oximetry Body temperature Heart rate Systolic blood pressure Diastolic blood pressure Systolic blood pressure Diastolic blood pressure Provider Name and Address Organization Details Last Updated DateTime 3 175.26 cm 25.8 kg/m2 28685.2 3 g 51 /min 98 % 98 % 97.8 [degF] 69 /min 149 mm[Hg] 73 mm[Hg] 138 mm[Hg] 76 mm[Hg] Ariana antunez MA [facility] 3 09:42:02 Date Recorded Body height Body mass index (BMI) Body weight Heart rate Oxygen saturation Oxygen saturation in Arterial blood by Pulse oximetry Body temperature Systolic blood pressure Diastolic blood pressure Provider Name and Address Organization Details Last Updated DateTime 4 175.26 cm 26.9 kg/m2 24234.2 1 g 69 /min 97 % 97 % 97.6 [degF] 136 mm[Hg] 77 mm[Hg] Darling Goncalves [facility] 4 11:12:45 Date Recorded Body weight Provider Name an d Address Organization Details Last Updated DateTime 10/09/2024 79503.03 g Trice Galicia [facility] 10/09/2024 13:26:56 Social History Question Answer Notes LastModified by Organizat ion Details LastModified Time Tobacco Smoking Status Never Smoker Monique last [facility] 12/03/2014 13:58:26 Do You Have [...] with bipola r in [place] [email or web address] Not available 10/19/2021 10:02:24 Father Depressive disorder [email or web address] Not available 10:02:24 Notes:+ fh P Ca (father), no fh CRC Medical History Condition Response Anxiety Disorder Y Muscle, Joint, or Bone Problems Y Chicken Pox Y Immunizations Vaccine Type Date Status Note Provider Nam e and Address Organization Details Recorded Time influenza, unspecified formulation [address] [facility] 05/15/2020 13:13:45 Influenza, split virus, quadrivalent, PF [address] [facility] 05/15/2020 13:13:45 Influenza, MDCK, quadrivalent, PF [address] [facility] 10/19/2021 10:22:28 COVID-19, mRNA, LNP-S, PF, 30 mcg/0.3 mL dose [address] [facility] 10/19/2021 10:22:28 COVID-19, mRNA, LNP-S, PF, 30 mcg/0.3 mL dose 1 completed Darling Goncalves [place] [facility], [facility] 10/19/2021 10:22:28 COVID-19, mRNA, LNP-S, PF, 100 mcg/0.5mL dose or 50 mcg/0.25mL dose 1 completed Darling Goncalves [place], [facility] 10/19/2021 10:22:28 Influenza, MDCK, quadrivalent, PF 2 completed Johanna Rogers MA null, [facility] 11/15/2022 10:32:03 Influenza, MDCK, quadrivalent, PF 3 completed [place], [facility] 08/16/2023 15:20:50 Tdap 4 completed Cecelia last, [facility] 05/15/2020 13:13:45 Influenza, split virus, quadrivalent, PF 0 completed Not Available [facility] 08/04/2019 02:22:10 Influenza, split virus, trivalent, PF 4 completed Tony Josue PA-C [address], [address], [facility] 06/04/2024 12:11:51 Past Encounters Encounter ID Performer Location Encounter Start Date Encounter Closed Date Diagnosis/Indication Diagnosis SNOMED-CT Code Diagnosis ICD10 Code Diagnosis Note [id number] autoEComm erce [address] [facility] [place] [address] 09/01/2010 00:00:00 [id number] autoEComm erce [address] [facility] [place] [address] 12/17/2011 00:00:00 [id number] autoEComm erce [address] [facility] [place] [address] 08/03/2012 00:00:00 [id number] autoEComm erce [address] [facility] [place] [address] 11/09/2012 00:00:00 [id number] autoEComm erce [address] [facility] [place], [place] [address] 03/12/2013 00:00:00 [id number] autoEComm erce [address] [facility] [place], [place] [address] 06/05/2013 00:00:00 [id number] autoEComm erce [address] [facility] [place], [place] [address] 11/27/2013 00:00:00 [id number] Main Office [address] [address] [place] [address] 12/03/2014 13:47:56 12/03/2014 14:48:43 Adult health examination 342084919 Shoulder pain 96590382 Panic diso rder without agoraphobia 52803075 pt uses clonazepam rarely. off of SSRI/ doing well/ not an active issue now. [id number] Belkis RodriguezTeodoraKarin galindo Main Office [address] [address] [place] [address] 09/03/2016 12:40:15 09/03/2016 14:22:14 Panic disorder 151592110 F41.0 Insomnia 678969176 G47.0 0 [id number] Belkis RodriguezTeodoraKarin galindo Main Office [address] [address] [place] [address] 09/02/2017 15:14:59 09/02/2017 16:42:51 Disorder of thyroid gland 27396535 E07.9 [facility] [id number] R53.83 [facility] [id number] E78.5 [id number] Regina Sin Main Office [address] [address] [place] [address] 03/09/2018 10:50:39 03/09/2018 11:49:11 Pre-surgery evaluation [id number] Z01.818 He is low risk and is cleared for his upcoming surgery. Pigmented villonodular synovitis of ankle joint 679029315 M12.271 [id number] Regina Sin Main Office [address] [address] [place] [address] 11/13/2018 10:54:18 11/13/2018 12:12:12 Adult health examination 755117253 Z00.00 Screening for malignant neoplasm of colon 981097732 Z12.11 Villonodul ar synovitis of subtalar joint 761248480 M12.271 sp surgery last fall - cont to f/u c ortho Mixed hyperlipidemia 267 267417 E78.2 rec less red meat and low carb diet -- initially rev. ascvd risk c pt Vitamin D deficiency 347 63116 E55.9 Christiano thyroiditis 21 169419 E06.3 Body mass index 25-29 - overweight 184477938 Z68.28 Impaired f asting glycemia 064544249 R73.01 Overweight 507370134 E66 .3 [id number] Regina Sin Main Office [address] [facility] [address] [place] [address] 08/02/2019 11:28:56 08/02/2019 12:31:16 Needs influenza immunization 011351408 Z23 Cellulitis of lower limb 899847370 L03.115 will tx with doxy to cover cellulitis and lyme though tick is large, very unlikley Anxiety 28482607 F41.9 use prn Tick bite 60175306 W57.X XXA no need for testing see above Insect bit e to leg - nonvenomous 763906018 S80.861A [id number] Tony Josue PA-C Main Office [address] [facility] [address] [place] [address] 10/19/2021 10:01:02 10/19/2021 11:15:34 Adult health examination 781619493 Z00.00 Mixed hyperlipidemia 267 363934 E78.2 rec less red meat and low carb diet -- initially rev. ascvd risk c pt Vitamin D deficiency 347 38994 E55.9 Christiano thyroiditis 21 854464 E06.3 Overweight 557576407 E66 .3 Body mass index 25-29 - overweight 447140589 Z68.27 Impaired f asting glycemia 624878774 R73.01 Benign pro static hyperplasia with outflow obstruction 577886953 N40.1 will get uro eval and check psa Anxiety state 709547468 F41.1 stable lately - mindfulnes s, used to see therapist Skin lesion 64828577 L98 .9 Hepatitis C screening 41 5152007 Z11.59 Varicella vaccination 68 870203 Z23 Pain in left foot 638641 6771 19107 M79.672 periodical ly, fernando from ski boot / sandal - x ~ 3 yrs - will get podiatry eval [id number] Brando Bernabe MD Telehealt h [address] [address] [facility] [place] [address] 11/20/2021 10:31:13 11/23/2021 08:42:37 Cough 28349857 R05.1 [id number] Tony Josue PA-C Main Office [address] [place] [address] 11/15/2022 10:20:53 11/15/2022 11:47:52 Adult health examination 239522979 Z00.00 History of malignant basal cell neoplasm of skin 840267887 Z85.828 s/p resection 8.9.22, cont f/u c ne derm q yr Benign pro static hyperplasia with outflow obstruction 224412639 N40.1 will get uro eval and check psa 5.23 - better p prostate embolizati on c ne vascular, does not wish to go back downstairs to uro - will get eval c another group Nocturia 873523955 R35.1 Mixed hyperlipidemia 267 785396 E78.2 rec less red meat and low carb diet -- initially rev. ascvd risk c pt Vitamin D deficiency 347 13355 E55.9 Fatigue 76745297 R53.83 Impaired f asting glycemia 444455512 R73.01 Metatarsal darrell of left foot 1608354303 03287 M77.42 will get ortho eval [id number] Erendira Tinoco MD Main Office [address] [place] [address] 11/30/2022 09:24:29 11/30/2022 10:06:00 Metatarsalgia 01971427 M77.41 Suspected Metatarsal giaAdvised warm soaks.NSAI D given, aware not to take with any other otc NSAID. Reminded to get PE labs.Podia try referral given so they can eval for foot mechanics. Will also get xray to ensure no stress fx. Pain in left foot 546583 2407 19107 M79.672 Has been having ongoing issues on left foot requesting xray given that he is having right foot done. [id number] Tony Josue PA-C Telehealt h [address] [facility] [address] [place] [address] 08/16/2023 15:02:42 08/16/2023 16:23:13 Benign prostatic hyperplasia with outflow obstruction 354049878 N40.1 will get uro eval and check [...] plane in past)noctu pal x 2/night lately [id number] Tony Josue PA-C Main Office [address] [facility] [address] [place] [address] 06/04/2024 10:54:41 06/04/2024 12:11:20 Adult health examination 589525404 Z00.00 colon utd Needs infl uenza immunization 381570173 Z23 19 YEARS AND OLDER ONLY Benign pro static hyperplasia with outflow obstruction 506286939 N40.1 will get uro eval and check [...] 11.24 - stable, cont f/u c uro Christiano thyroiditis 21 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 ascvd risk c pt Body mass index 25-29 - overweight 326782813 E66.3 Z68.26 Impaired f asting glycemia 515405251 R73.01 Anxiety 15315800 F41.9 mild on jes, does a lot of mindfulnes s, does have old rx from [facility] for prn benzo - is running low, rarely uses, requests refill - low abuse potential [id number] Tony Josue PA-C Telehealt h [address] [facility] [address] [place] [address] 10/09/2024 13:13:06 10/09/2024 15:55:39 Prostate specific antigen above reference range 349941900 R97.20 reviewed yesterday' s uro note c pt - plan is to recheck psa in 1 monthcont f/u c uro end of 4.25 Christiano thyroiditis 21 945334 E06.3 Fatigue 81474120 R53.83 Vitamin D deficiency 347 54306 E55.9 Costal chondritis 186309 04 M94.0 rec warm compress to sternum Health Concerns Section Related Observation LastModified by Organization Detai ls LastModified Time None Recorded Concern Status LastModified by Organization Details LastModified Time None Recorded Advance Directives Directive N: Payers Encounter Date Sequence Insurance Name Policy Number Policy Matute Covered Member ID Matute Member ID Guarantor Name 11/15/2022 1 [place] [id number] Мария P Eddi [id number] Мария Eddi 11/30/2022 1 [place] [id number] Мария P Eddi [id number] Мария Eddi 08/16/2023 1 [place] [id number] Мария P Eddi [id number] Мария Eddi 06/04/2024 1 [place] [id number] Мария P Eddi [id number] Мария Eddi 10/09/2024 1 [place] [id number] Мария P Eddi [id number] Мария Eddi Notes Date Note Type Note Provider Name and Address Organization Details Recorded Time 11/15/2022 text/html here for annual pe. Tony Josue PA-C [address] [address], [place], [address], [facility] 11/15/2022 11:43:16 11/30/2022 text/html Musculoskeletal PainReported bypatient.Location:[facility] foot Quality:sharp;dull Severity:improving Duration:present <1 month Context:overuse; running Alleviating factors:rest Associated Symptoms:no fever; no weak limbs; no tingling; no numbness of the legs/feetNotes:Recent ly started running chief complaint was pain on ball of right foot for ~ 6 days. Has concern wart maybe developing since he had in past. Erendira Tinoco MD [address] [address], [place], [address], [facility] 11/30/2022 10:09:26 08/16/2023 text/html Video appt.Ines nt c/o urinary urgency when in high altitudes. He will be traveling via plane in 2 weeks. pt states he only gets urgency (more so inability to urinate so felt the urgency to go -- couldn't urinate on the plane, able to do so in airport after) at high altitudes - pending see urologist in [place] in several weeks, wouldn't give him script w/o being seen has never been on flomax curr - has 2 episodes of nocturia Tony Josue PA-C [address] [address], [place], [address], [facility] 08/16/2023 16:05:50 06/04/2024 text/html here for annual pe. Tony Josue PA-C [address] [address], [place], [address], [facility] 06/04/2024 12:12:18 10/09/2024 text/html Phone visit-pt h aving discomfort. psa test was very high. pt prefer a phone call. rev chart - just seen by uro yesterday - rev note in detail c pt also c/o fullness chest, thyroid, esophagus, neck region - concerned about christiano'srequests sed rate to be checked too Tony Josue PA-C [address] [address], [place], [address], [facility] 10/09/2024 14:19:31
--- OUTSIDE RECORDS SUMMARY | 2024-10-15 11:11 | XMS_ITS | Patient Health Record ---
Author Organization [facility] Address [address] [place] [address] Care Team Providers Care Marine Designer Name Role Phone Tony Palomares PA-C Primary Care Provider Unava ilYuan Medina Unavailable [phone] Allergies Allergen (clinical drug ingredient) Drug/Non Drug [...] Treatment Pending Test Test Name Order Date [id number] Destruction, 1-14 12/05/2014 [id number] Biopsy 0.5cm 10/17/2014 Insurance Providers Payer Name Payer Address Payer Phone Subscriber Number Group Number Insured Name Patient Relationship to Insured Coverage Start Date Coverage End Date [facility] [address] [place] [address] [id number] Мария Montague Spouse - patient is the spouse of the insured Medical (General) History Medical History History ICD Code Chicken pox Surgical History Surgery Date(Month/Year) ankle surgery 2012 PAE 07/2022
[2024-10-15 11:46] LABS: Prostate Specific Antigen 3.35 ng/mL (<0.05-4.0)
[2024-10-15 11:48] LABS: PSA,Total (Free>4and<10) 3.52 ng/mL (0.00-4.00)
== END 2024-10-15 10:06 | disposition home or self-care (01) ==
LOC: HO.10HDL 10:05
PROVIDERS: Visit Provider Nurse Practitioner Family
DX: R97.20 Elevated prostate specific antigen [PSA] (principal); Z80.42 Family history of malignant neoplasm of prostate; Z12.5 Encounter for screening for malignant neoplasm of prostate
CPT/HCPCS: 36415; 84153

== ENCOUNTER 2024-11-06 12:26 | Outpatient (AMB) | payer BC, SELFPAY ==
--- NOTE | 2024-11-06 12:26 | A.OFFVIS_ITS ---
Intake Visit Reasons: 1 month/ PSA(set) Intake Note: Patient presents today for follow up visit on: Elevated PSA and PSA lab results PSA: 3.52 (10/15/24); PSA: 4.01 (09/17/24) Urology Medications: none Blood Thinner: none Addictions Counselor Assistant Required: No Accompanied by: Self / Same As Patient Allergies Sulfa (Sulfonamide Antibiotics) Allergy (Verified 11/06/24 13:18) Hives Medication List - Last Reconciled 11/06/24 by JASON Azevedo No Known Home Meds HPI Comments Details: John is a very pleasant 59-year-old male patient of Dr. Palomares. He has a past medical history of history of basal cell carcinoma, contact dermatitis, BPH without outflow obstruction, hyperlipidemia, vitamin-D deficiency, and Suad's thyroiditis. He is being followed up on today via video telehealth for his ongoing lower urinary tract symptoms and labile PSA. Recent PSA results were reviewed with the patient today as noted and trended below: PSAs are as follows: 12/06 2.6, 10/08 3.2, 02/07 3.6, 04/10 2.7, 10/09 4.0, 10/09 3.4 Previous workup has included a retroperitoneal ultrasound 04/10 noting bilateral kidneys with no calculi, lesions, and or hydronephrosis. The bladder is well distended and normal. Bilateral ureteral jets are demonstrated. Pre void bladder volume is approximately 415 mL. Postvoid bladder volume is approximately 160 mL. Prostate is upper limits of normal measuring 28 mL. We discussed variability in PSA and potential causes for this variability/elevation. Patient with a previous urological history with [facility] and underwent urodynamics 01/06, cystoscopy 01/06 that noted no strictures, nonobstructing prostate, nonobstructing bladder neck, and mild hyperplasia. It appears patient was to undergo prostate biopsy procedure however this was never completed. He discusses having ongoing intermittent issues with nocturia, weak urinary stream, and urinary pressure however feels symptoms have been manageable independently. He discusses his ongoing follow-up with his PCP for lipidemia issues he has been having with a significant family history of hypercholesteremia. He does have a history of some sort of surgical procedure regarding his prostate that sounds like prostate embolization. 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 He currently denies any bothersome urinary issues or concerns. Discussed groundwater monitoring technician ing of PSA given family history of prostate cancer and labile/elevated PSA. We discussed obtaining MRI of the prostate for further assessment evaluation. He otherwise offers no other issues or concerns at this time. [facility] Medical History Metatarsalgia of left foot Pain in left foot History of basal cell carcinoma (BCC) Villonodular synovitis of ankle and foot Contact dermatitis Benign prostatic hyperplasia Panic disorder with agoraphobia Overweight Mixed hyperlipidemia Vitamin D deficiency Suad's thyroiditis Surgical History H/O transurethral resection of prostate History of basal cell carcinoma excision Review of Systems Const All systems reviewed & are unremarkable except as noted in HPI and below Reports no additional complaints Eyes Reports no additional complaints ENT Reports no additional complaints Card Reports as per HPI Resp Reports no additional complaints GI Reports no additional complaints Reports as per HPI Musc Reports as per HPI Skin/Breast Reports as per HPI Neuro Reports no additional complaints Psych Reports no additional complaints Endo Reports as per HPI Jalil/Lymph Reports no additional complaints Aller/Immun Reports no additional complaints Physical Exam Const General: cooperative, healthy appearing, comfortable, no acute distress, well developed, alert and awake Orientation/consciousness: patient oriented x3 Resp Effort & Inspection: normal respiratory effort and able to speak in complete sentences Neuro General: patient oriented x3 Psych Appearance: grossly normal and well kempt Mental Status: mental status grossly normal Speech and movement: Normal speech and movement present and Clear speech present Affect: normal affect Attitude: cooperative Thought process: Normal thought process present Thought content: Normal thought content present Insight: Fair insight present (Psych) Judgement: Fair judgement present (Psych) Telehealth Telehealth Telehealth Platform: Doximity Location of provider rendering services: practice address Location of patient: address on file Patient Identification confirmed using: Name, : Yes Telehealth method: video Patient verbally consented to treatment: Yes Patient verbally consented to billing insurance company: Yes Patient informed of any privacy concerns related to visit: Yes Minutes spent on Phone/Video with Pt.: 20 Assessment & Plan Assessment & Plan (1) Elevated PSA: Code(s): R97.20 - Elevated prostate specific antigen [PSA] Category: Medical (2) Family history of prostate cancer: Code(s): Z80.42 - Family history of malignant neoplasm of prostate Category: Medical Plan Recent PSA results reviewed with the patient today; as noted above. We discussed close surveillance monitoring guarding labile PSA and family history of prostate cancer. Patient reports to be managing lower urinary tract symptoms well independently. Will obtain prostate MRI for further assessment evaluation. We discussed potential causes of elevated PSA as well as further treatment options and risks and benefits of these treatment options. Follow-up in 3 months with imaging to be completed prior; or sooner with any issues, concerns, and or questions. Orders: Orders MR abdomen wo/w con Today R97.20 - Elevated prostate specific antigen [PSA], Z80.42 - Family history of malignant neoplasm of prostate Patient Instructions: The patient had an opportunity to ask questions regarding the treatment plan. All questions were answered. Physical exam, labs, and imaging were discussed and reviewed in detail. As well as risks, benefits, and discussion of treatment choices. No major barriers to understanding were identified. The patient expressed understanding and agreement with the above treatment plan. The patient was made aware they should contact our office by phone for worsening of their current condition, the appearance of new symptoms, or with any questions or concerns. Compliance is encouraged with any medications and follow up testing that is ordered. It is a privilege to be allowed the opportunity to participate in? your urological care.? Again, if you have any questions or concerns If you have any questions or concerns please do not hesitate to contact me. The office is [phone]. This note is constructed using voice recognition software. While every effort campos s been made to ensure accuracy seafood and service meat manager errors may have been included. Yours sincerely, JASON Azevedo Coding Level of Care Code Tele Est Pt Level 3 (65081) Diagnoses Elevated PSA R97.20 Family history of prostate cancer Z80.42
--- OUTSIDE RECORDS SUMMARY | 2024-11-06 14:44 | XMS_ITS | Patient Health Record ---
Author Organization [facility] Address [address] [place] [address] Care Team Providers Care Automotive Worker Foreman Name Role Phone Tony Palomares PA-C Primary Care Provider Unava ilYuan Medina Unavailable [phone] Allergies Allergen (clinical drug ingredient) Drug/Non Drug [...] Treatment Pending Test Test Name Order Date [id number] Destruction, 1-14 12/05/2014 [id number] Biopsy 0.5cm 10/17/2014 Insurance Providers Payer Name Payer Address Payer Phone Subscriber Number Group Number Insured Name Patient Relationship to Insured Coverage Start Date Coverage End Date [facility] [address] [place] [address] [id number] Мария Montague Spouse - patient is the spouse of the insured Medical (General) History Medical History History ICD Code Chicken pox Surgical History Surgery Date(Month/Year) ankle surgery 2012 PAE 07/2022
--- OUTSIDE RECORDS SUMMARY | 2024-11-06 14:44 | XMS_ITS | Data Portability ---
Author Organization [facility], Main Office Address [address] [facility] [address] [place] [id number] Care Team Providers Care Plate Stacker Hand Name Role Phone SOLANGE JOSUE Primary Care Provider FLORIDA LAGUNAS Orthopedic Surgeon AWA WILSON Cream Separator Operator [phone] ROSALINDA POND Urologist ARMEN SAMAYOA Correction Officer Assessment Encounter Date Assessment Date Assessment LastModified by Organization Details LastModified Time 08/16/2023 08/16/2023 This service was provided using telemedicine. Patient consented to video & audio visit Patient was located in the [facility]. Provider was located in the office. No other persons participated in the telemedicine visit except for the patient unless otherwise indicated here. {{}} Total time of visit was 18 minutes. pmadden Not available 08/16/2023 16:04:17 10/09/2024 10/09/2024 This service was provided using telemedicine. Patient consented to telephone visit Patient was located in the [facility]. Provider was located in the office. No other persons participated in the telemedicine visit except for the patient unless otherwise indicated here. {{}} Total time of visit was 21 minutes. pmadden Not available 10/09/2024 14:17:33 Plan of Treatment Reminders Order Date Submit Date Provider Last Modified By Organization Details Last Modified Time Details Appointments telehe alth20 2024 03:40P M Solange Josue PA-Sherin Not available Not available Not available Lab PSA, total, serum or plasma 2024 025 VIBHA [facility] (Centralized Electronic Ordering - All Locations), Patient Can Go To The Location Of Their Choice, 10/20/2024 06:13:52 TSH + free T4, serum 2024 VIBHA [facility] (Centralized Electronic Ordering - All Locations), Patient Can Go To The Location Of Their Choice, 10/09/2024 14:18:37 T3, free, serum or plasma 2024 VIBHA [facility] (Centralized Electronic Ordering - All Locations), Patient Can Go To The Location Of Their Choice, 10/20/2024 06:13:54 vitami n D, 25-hyd lacy, total, serum 2024 VIBHA [facility], [address], [place], [address], 10/20/2024 06:13:53 CBC w/ auto diff 2024 VIBHA [facility] (Centralized Electronic Ordering - All Locations), Patient Can Go To The Location Of Their Choice, 10/09/2024 14:18:52 BMP, serum or plasma 2024 VIBHA [facility] (Centralized Electronic Ordering - All Locations), Patient Can Go To The Location Of Their Choice, 10/09/2024 14:18:36 erythr ocyte sedime ntatio n rate by drew yonatann method 2024 VIBHA [facility] (Centralized Electronic Ordering - All Locations), Patient Can Go To The Location Of Their Choice, 10/20/2024 06:13:53 lipid panel, serum 2023 024 VIBHA [facility] (Centralized Electronic Ordering - All Locations), Patient Can Go To The Location Of Their Choice, 10/20/2024 06:13:56 CMP, serum or plasma 2023 024 VIBHA [facility] (Centralized Electronic Ordering - All Locations), Patient Can Go To The Location Of Their Choice, 10/20/2024 06:13:56 CBC w/ auto diff 2023 024 VIBHA [facility] (Centralized Electronic Ordering - All Locations), Patient Can Go To The Location Of Their Choice, [id number] 10/20/2024 06:13:56 HbA1c (hemog lobin A1c), blood 2023 024 VIBHA [facility] (Centralized Electronic Ordering - All Locations), Patient Can Go To The Location Of Their Choice, [id number] 10/20/2024 06:13:57 TSH, ultra- sensit mali, serum 2023 024 VIBHA [facility] (Centralized Electronic Ordering - All Locations), Patient Can Go To The Location Of Their Choice, [id number] 10/20/2024 06:13:57 HbA1c (hemog lobin A1c), blood 2022 023 VIBHA [facility], [address], [address], [place], [address], 01/24/2023 18:35:33 lipid panel, serum 2022 023 VIBHA [facility], [address], [address], [place], [address], 01/24/2023 17:27:45 vitami n D, 25-hyd lacy, total, serum 2022 023 VIBHA [facility], [address], [address], [place], [address], 01/24/2023 17:43:08 PSA, serum or plasma - Screen ing 2022 023 VIBHA [facility], [address], [address], [place], [address], 01/24/2023 17:43:05 CMP, serum or plasma 2022 023 V[facility], [address], [address], [place], [address], 01/24/2023 17:27:43 TSH, serum or plasma 2022 023 V[facility], [address], [address], [place], [address], 01/24/2023 17:43:07 CBC w/ auto diff 2022 023 VIBHA [facility], [address], [address], [place], [address], 01/24/2023 16:23:34 Referral nutrit ionist /dieti akila referr al 2023 024 [email or web address] Not available 06/04/2024 12:28:36 podiat rist referr al 2022 023 [email or web address] Not available 01/24/2023 16:28:40 orthop edic surgeo n referr al 2022 023 [email or web address] [facility], [address] [facility], [place], [address], 02/04/2023 15:44:46 urolog ist referr al 2022 023 Timmy Palencia MD, [address] [place], [address], 02/04/2023 15:46:13 Procedures None record ed. Surgeries None record ed. Imaging XR, foot, 3 or more view [facility]22 [facility]23 [facility], Internal Use Only DO Not Attach Compendium DO Not Attach Compendium, Do Not Delete/merge, [id number] 01/12/2023 14:04:03 XR, foot, 3 or more view 2022 023 [email or web address] In-Office Order, Internal Use Only DO Not Attach Compendium DO Not Attach Compendium, Do Not Delete/merge, [id number] 01/12/2023 14:04:04 Medication Orders loraze michael 0.5 mg tablet 2023 024 [id number], [address] [facility] [address], [place], [address], 06/04/2024 12:12:00 tamsul osin 0.4 mg capsul e 2023 024 hanna [id number], [address] [place], [address], 06/04/2024 11:09:06 Mobic 15 mg tablet 2022 023 brooke zelaya [id number], [address] [place], [address], 08/16/2023 15:21:04 Patient Targets Encounter Date Encounter Id Patient Goals Patient Target Last Modified By Organization Details Last Modified Time 06/04/2024 [id number] 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 pmadden Not available 11/15/2022 11:28:11 11/30/2022 [id number] metatarsalgia: care instructions [email or web address] Not available 11/30/2022 10:02:46 08/16/2023 [id number] benign prostatic hyperplasia: care instructions pmadden Not available 08/16/2023 16:03:32 Follow up as needed. pmadden Not available 08/16/2023 16:03:14 06/04/2024 [id number] Well Visit 50 to 65: Care Instructions pmadden Not available 06/04/2024 12:11:47 When You Want to Lose Weight: Care Instructions pmadden Not available 06/04/2024 12:11:48 Nutrition Referral and Weight Management Follow-up Information pmadden Not available 06/04/2024 12:11:48 Discussed risks for driving while using this medication. pmadden Not available 06/04/2024 11:46:10 10/09/2024 [id number] costochondritis: care instructions pmadden Not available 10/09/2024 14:18:33 encouraged pt to check outstanding labs as directed pmadden Not available 10/09/2024 14:17:43 Follow up if no improvement or if symptoms worsen. pmadden Not available 10/09/2024 14:15:17 Reason for Referral Urologist Referral for Benig n prostatic hyperplasia with outflow obstruction Referring Physician: Solange Josue, Internal Medicine, Encounter Date: 11/15/2022 Orthopedic Surgeon Referral for Metatarsalgia of left foot Referring Physician: Solange Josue, Internal Medicine, Encounter Date: 11/15/2022 Sugar Cane Planter Referral for [place] tarsalgia Referring Physician: Erendira Tinoco, Family Medicine, Encounter Date: 11/30/2022 Flatwork Catcher/dietitian Refer ral for Body mass index 25-29 - overweight Referring Physician: Solange Josue, Internal Medicine, Encounter Date: 06/04/2024 Results Created Date Observation Date Name Description Value Unit Range Abnormal Flag Note LastModifiedBy Organization Detail LastModifiedTime 01/25/2001/24/2023 COMPL ETE CBC WITH DIFF WBC 4.9 K/mm3 (4.0-1 1.0) Not Available [facility] (Centralized Electronic Ordering - All Locations) Patient Can Go To The Location Of Their Choice, [id number] 01/24/2023 16:23:34 01/25/20 23 01/24/2023 COMPL ETE CBC WITH DIFF RBC 4.73 [...] 01/25/2001/24/2023 COMPL ETE CBC WITH DIFF lymph 37.5 [...] 01/24/2023 COMPR EHENS MALI METAB OLIC PANL ALT [...] PSA ASSAY . PSA VALUE S OBTAI HASMUKH WITH OTHER ASSAY METHO DS OR KITS CANNO T BE USED INTER UNDERWOOD EABLY . Not Available [facility] (Centralized Electronic [...] devel oping diabe mykel in the futur val TIMMONS ON: False ly low HbA1c resul ts [...] of Clini garrison and Appli ed Resea rch and Educa tion Volum e 43, Suppl ement 1 Not Available [facility] (Centralized Electronic Ordering - All Locations) Patient Can Go To The Location Of Their Choice, [id number] 01/24/2023 18:35:33 10/20/19 25 10/19/2024 PROST ATE-S PECIF IC AG prostate specific Ag 3.2 NG/mL 0.0-4. 0 normal Veronica ECLIA metho dolog y. Accor ding to the Ameri can Urolo gical Assoc iatio n, Serum PSA shoul d decre ase and remai n at undet ectab le level s after radic al prost atect taz. The AUA defin es bioch emica l recur rence as an initi al PSA value 0.2 ng/mL or great er follo wed by a subse quent confi rmato ry PSA value 0.2 ng/mL or great er. Value s obtai hasmukh with diffe rent assay metho ds or kits canno t be used inter underwood eably . Resul ts canno t be inter prete d as absol marquez evide nce of the prese nce or absen ce of tae ruiz se. Not Available [facility] ([facility]) [address], [place], [address], 10/20/2024 06:13:52 10/20/19 25 10/20/2024 VITAM IN D, 25-HY DROXY vitamin D, 25-hydroxy 38.8 NG/mL 30.0-1 00.0 Vitam in D defic iency has been defin ed by the Insti tute of Medic ine and an Endoc rine Socie ty pract ice guide line as a level of serum 25-OH vitam in D less than 20 ng/mL (1,2) . The Endoc rine Socie ty went on to furth er defin e vitam in D insuf ficie ncy as a level betwe en 21 and 29 ng/mL (2). 1. IOM (Inst itute of Medic ine). 2009. Dieta ry refer ence intak es for calci um and D. Mary brady DC: The Natio [facility] Press . 2. Jo Ann banuelos MF, Becky levin [place], Vince off-F errar i GOMEZ, et al. Evalu ation , treat ment, and preve ntion of vitam in D defic iency : an Endoc rine Socie ty clini garrison pract ice guide line. JCEM. 2010; 96(7) :1911 -30. Not Available [facility] ([facility]) [address] [place], [address], 10/20/2024 06:13:52 10/20/19 25 10/19/2024 SEDIM ENTAT ION RATE- WESTE RGREN sedimentatio n rate-westerg talita 2 mm/HR 0-30 normal Not Available [facility] ([facility]) [address] [place], [address], 10/20/2024 06:13:53 10/20/19 25 10/19/2024 TRIIO DOTHY JHOAN E (T3), FREE triiodothyro nine (T3), free 2.8 pg/mL 2.0-4. 4 normal Not Available [facility] ([facility]) [address] [place], [address], 10/20/2024 06:13:54 10/20/19 25 10/19/2024 CBC WITH DIFFE RENTI AL/PL ATELE T WBC 5.5 x10e3 /uL 3.4-10 .8 normal Not Available [facility] ([facility]) [address] [facility] [place], [address], 10/20/2024 06:13:56 10/20/1910/19/2024 CBC WITH DIFFE RENTI AL/PL ATELE T RBC 4.99 x10e6 /uL 4.14-5 .80 normal Not Available [facility] ([facility]) [address], [place], [address], 10/20/2024 06:13:56 10/20/19 25 10/19/2024 CBC WITH DIFFE RENTI AL/PL ATELE T hemoglobin 16.2 g/dL 13.0-1 7.7 normal Not Available [facility] ([facility]) [address], [place], [address], 10/20/2024 06:13:56 10/20/19 25 10/19/2024 CBC WITH DIFFE RENTI AL/PL ATELE T hematocrit 46.6 % 37.5-5 1.0 normal Not Available [facility] ([facility]) [address], [place], [address], 10/20/2024 06:13:56 10/20/1910/19/2024 CBC WITH DIFFE RENTI AL/PL ATELE T MCV 93 fL 79-97 normal Not Available [facility] ([facility]) [address], [place], [address], 10/20/2024 06:13:56 10/20/1910/19/2024 CBC WITH DIFFE RENTI AL/PL ATELE T MCH 32.5 pg 26.6-3 3.0 normal Not Available [facility] ([facility]) [address] [place], [address], 10/20/2024 06:13:56 10/20/19 25 10/19/2024 CBC WITH DIFFE RENTI AL/PL ATELE T MCHC 34.8 g/dL 31.5-3 5.7 normal Not Available [facility] ([facility]) [address], [place], [address], 10/20/2024 06:13:56 10/20/19 25 10/19/2024 CBC WITH DIFFE RENTI AL/PL ATELE T RDW 12.9 % 11.6-1 5.4 Not Available [facility] ([facility]) [address], [place], [address], 10/20/2024 06:13:56 10/20/19 25 10/19/2024 CBC WITH DIFFE RENTI AL/PL ATELE T platelets 240 x10e3 /uL 150-45 0 normal Not Available [facility] ([facility]) [address], [place], [address], 10/20/2024 06:13:56 10/20/19 25 10/19/2024 CBC WITH DIFFE RENTI AL/PL ATELE T neutrophils 44 % not estab. normal Not Available [facility] ([facility]) [address], [place], [address], 10/20/2024 06:13:56 10/20/19 25 10/19/2024 CBC WITH DIFFE RENTI AL/PL ATELE T lymphs 46 % not estab. normal Not Available [facility] ([facility]) [address], [place], [address], 10/20/2024 06:13:56 10/20/19 25 10/19/2024 CBC WITH DIFFE RENTI AL/PL ATELE T monocytes 8 % not estab. normal Not Available [facility] ([facility]) [address], [place], [address], 10/20/2024 06:13:56 10/20/19 25 10/19/2024 CBC WITH DIFFE RENTI AL/PL ATELE T eos 2 % not estab. normal Not Available [facility] ([facility]) [address], [place], [address], 10/20/2024 06:13:56 10/20/19 25 10/19/2024 CBC WITH DIFFE RENTI AL/PL ATELE T basos 0 % not estab. normal Not Available [facility] ([facility]) [address] [place], [address], 10/20/2024 06:13:56 10/20/19 25 10/19/2024 CBC WITH DIFFE RENTI AL/PL ATELE T immature cells ASSISTANT RESTAURANT GENERAL MANAGER Not Available [facility] ([facility]) [address] [place], [address], 10/20/2024 06:13:56 10/20/19 25 10/19/2024 CBC WITH DIFFE RENTI AL/PL ATELE T neutrophils (absolute) 2.4 x10e3 /uL 1.4-7. 0 normal Not Available [facility] ([facility]) [address] [place], [address], 10/20/2024 06:13:56 10/20/19 25 10/19/2024 CBC WITH DIFFE RENTI AL/PL ATELE T lymphs (absolute) 2.6 x10e3 /uL 0.7-3. 1 normal Not Available [facility] ([facility]) [address] [place], [address], 10/20/2024 06:13:56 10/20/19 25 10/19/2024 CBC WITH DIFFE RENTI AL/PL ATELE T monocytes(ab solute) 0.5 x10e3 /uL 0.1-0. 9 normal Not Available [facility] ([facility]) [address] [place], [address], 10/20/2024 06:13:56 10/20/19 25 10/19/2024 CBC WITH DIFFE RENTI AL/PL ATELE T eos (absolute) 0.1 x10e3 /uL 0.0-0. 4 normal Not Available [facility] ([facility]) [address] [place], [address], 10/20/2024 06:13:56 10/20/19 25 10/19/2024 CBC WITH DIFFE RENTI AL/PL ATELE T baso (absolute) 0.0 x10e3 /uL 0.0-0. 2 normal Not Available [facility] ([facility]) [address], [place], [address], 10/20/2024 06:13:56 10/20/19 25 10/19/2024 CBC WITH DIFFE RENTI AL/PL ATELE T immature granulocytes 0 % not estab. Not Available [facility] ([facility]) [address], [place], [address], 10/20/2024 06:13:56 10/20/19 25 10/19/2024 CBC WITH DIFFE RENTI AL/PL ATELE T immature grans (abs) 0.0 x10e3 /uL 0.0-0. 1 Not Available [facility] ([facility]) [address], [place], [address], 10/20/2024 06:13:56 10/20/19 25 10/19/2024 CBC WITH DIFFE RENTI AL/PL ATELE T NRBC ASSISTANT RESTAURANT GENERAL MANAGER Not Available [facility] ([facility]) [address], [place], [address], 10/20/2024 06:13:56 10/20/19 25 10/19/2024 CBC WITH DIFFE RENTI AL/PL ATELE T hematology comments: ASSISTANT RESTAURANT GENERAL MANAGER Not Available [facility] ([facility]) [address], [place], [address], 10/20/2024 06:13:56 10/20/19 25 10/19/2024 COMP. METAB OLIC PANEL (14) glucose 98 mg/dL 70-99 normal Not Available [facility] ([facility]) [address], [place], [address], 10/20/2024 06:13:56 10/20/19 25 10/19/2024 COMP. METAB OLIC PANEL (14) BUN 16 mg/dL 6-24 normal Not Available [facility] ([facility]) [address] [place], [address], 10/20/2024 06:13:56 10/20/19 25 10/19/2024 COMP. METAB OLIC PANEL (14) creatinine 1.25 mg/dL 0.76-1 .27 normal Not Available [facility] ([facility]) [address], [place], [address], 10/20/2024 06:13:56 10/20/19 25 10/19/2024 COMP. METAB OLIC PANEL (14) eGFR 67 mL/mi n/1.7 3 >59 normal Not Available [facility] ([facility]) [address], [place], [address], 10/20/2024 06:13:56 10/20/19 25 10/19/2024 COMP. METAB OLIC PANEL (14) BUN/creatini ne ratio 13 9-20 normal Not Available [facility] ([facility]) [address], [place], [address], 10/20/2024 06:13:56 10/20/19 25 10/19/2024 COMP. METAB OLIC PANEL (14) sodium 141 mmol/ L 134-14 4 normal Not Available [facility] ([facility]) [address] [place], [address], 10/20/2024 06:13:56 10/20/19 25 10/19/2024 COMP. METAB OLIC PANEL (14) potassium 4.5 mmol/ L 3.5-5. 2 normal Not Available [facility] ([facility]) [address], [place], [address], 10/20/2024 06:13:56 10/20/19 25 10/19/2024 COMP. METAB OLIC PANEL (14) chloride 107 mmol/ L 96-106 above high normal Not Available [facility] ([facility]) [address] [place], [address], 10/20/2024 06:13:56 10/20/19 25 10/19/2024 COMP. METAB OLIC PANEL (14) carbon dioxide, total 23 mmol/ L 20-29 normal Not Available [facility] ([facility]) [address] [place], [address], 10/20/2024 06:13:56 10/20/19 25 10/19/2024 COMP. METAB OLIC PANEL (14) calcium 9.7 mg/dL 8.7-10 .2 normal Not Available [facility] ([facility]) [address] [place], [address], 10/20/2024 06:13:56 10/20/19 25 10/19/2024 COMP. METAB OLIC PANEL (14) protein, total 7.3 g/dL 6.0-8. 5 normal Not Available [facility] ([facility]) [address] [place], [address], 10/20/2024 06:13:56 10/20/19 25 10/19/2024 COMP. METAB OLIC PANEL (14) albumin 4.7 g/dL 3.8-4. 9 normal Not Available [facility] ([facility]) [address] [place], [address], 10/20/2024 06:13:56 10/20/19 25 10/19/2024 COMP. METAB OLIC PANEL (14) globulin, total 2.6 g/dL 1.5-4. 5 Not Available [facility] ([facility]) [address] [place], [address], 10/20/2024 06:13:56 10/20/19 25 10/19/2024 COMP. METAB OLIC PANEL (14) bilirubin, total 0.8 mg/dL 0.0-1. 2 normal Not Available [facility] ([facility]) [address] [place], [address], 10/20/2024 06:13:56 10/20/19 25 10/19/2024 COMP. METAB OLIC PANEL (14) alkaline phosphatase 71 IU/L 44-121 normal Not Available [facility] ([facility]) [address] [place], [address], 10/20/2024 06:13:56 10/20/19 25 10/19/2024 COMP. METAB OLIC PANEL (14) AST (SGOT) 27 IU/L 0-40 normal Not Available [facility] ([facility]) [address] [place], [address], 10/20/2024 06:13:56 10/20/19 25 10/19/2024 COMP. METAB OLIC PANEL (14) ALT (SGPT) 25 IU/L 0-44 normal Not Available [facility] ([facility]) [address] [place], [address], 10/20/2024 06:13:56 10/20/19 25 10/19/2024 LIPID PANEL cholesterol, total 250 mg/dL 100-19 9 above high normal Not Available [facility] ([facility]) [address] [place], [address], 10/20/2024 06:13:56 10/20/19 25 10/19/2024 LIPID PANEL triglyceride s 124 mg/dL 0-149 normal Not Available [facility] ([facility]) [address] [place], [address], 10/20/2024 06:13:56 10/20/19 25 10/19/2024 LIPID PANEL HDL cholesterol 45 mg/dL >39 normal Not Available [facility] ([facility]) [address] [place], [address], 10/20/2024 06:13:56 10/20/19 25 10/19/2024 LIPID PANEL VLDL cholesterol garrison 22 mg/dL 5-40 Not Available [facility] ([facility]) [address] [place], [address], 10/20/2024 06:13:56 10/20/19 25 10/19/2024 LIPID PANEL LDL chol calc ([facility]) 183 mg/dL 0-99 above high normal Not Available [facility] ([facility]) [address] [place], [address], 10/20/2024 06:13:56 10/20/19 25 10/19/2024 LIPID PANEL LDL calc comment: ASSISTANT RESTAURANT GENERAL MANAGER Not Available [facility] ([facility]) [address] [place], [address], 10/20/2024 06:13:56 10/20/1910/20/2024 HEMOG LOBIN A1C hemoglobin A1C 5.5 % 4.8-5. 6 normal Predi abete s: 5.7 - 6.4 Diabe mykel: >6.4 Glyce wesly contr ol for adult s with diabe mykel: <7.0 Not Available [facility] ([facility]) [address] [place], [address], 10/20/2024 06:13:57 10/20/1910/19/2024 TSH RFX ON ABNOR MAL TO FREE T4 TSH 1.830 uIU/m L 0.450- 4.500 normal Not Available [facility] ([facility]) [address] [place], [address], 10/20/2024 06:13:57 01/20/2001/14/2023 XR, foot, 3 or more view No observ ation record ed. [email or web address] [facility] [address], [place], [address], 02/02/2023 11:02:42 01/20/20 23 01/14/2023 XR, foot, 3 or more view No observ ation record ed. [facility] [address], [address], 01/19/2023 15:37:41 01/20/20 23 01/14/2023 XR, foot, 3 or more view No observ ation record ed. [facility] [address], [address], 01/19/2023 15:37:41 01/20/20 23 01/14/2023 XR, foot, 3 or more view No observ ation record ed. [facility] [address], [address], 01/19/2023 15:37:42 02/03/20 23 01/14/2023 XR, foot, 3 or more view No observ ation record ed. [email or web address] [facility] [address], [address], 03/02/2023 16:42:49 02/03/20 23 01/14/2023 XR, foot, 3 or more view No observ ation record ed. [facility] [address], [address], 02/02/2023 23:41:13 02/03/20 23 01/14/2023 XR, foot, 3 or more view No observ ation record ed. [facility] [address], [address], 02/02/2023 23:39:24 02/03/20 23 01/14/2023 XR, foot, 3 or more view No observ ation record ed. [facility] [address] [place] [address], [address], 02/02/2023 23:40:49 04/04/20 24 03/27/2024 US, duple x, retro perit oneum , compl ete No observ ation record ed. [facility] (Medical Records) [address] [facility], [place], [address], 06/04/2024 11:43:08 Result Notes None recorded. Problems Name Problem SNOMED Code Status Onset Date Resolution Date Notes Provider Name and Address Organization Details Recorded Time Patient status finding [id number] Completed 201201/29/2014 RECORDED 11/10/19 13 1:36PM BY CORINA AUSTIN MA, ANNOTATI ON/ADDEN DUM Deneen last [facility] 8 15:58:40 Contact dermatit is [id number] Active 2013 Not Available [facility] 0 13:05:47 Dizzines s and giddines s [id number] Completed 201201/29/2014 RECORDED 08/03/19 13 12:59PM BY CORINA AUSTIN MA, MAYLINATI ON/ADDEN DUM Not Available [facility] 4 14:53:28 Malaise and fatigue [id number] Completed 201309/02/2017 RECORDED 11/28/19 14 12:57PM BY CORINA AUSTIN MA, OFFICE VISIT Deneen last [facility] 8 15:58:51 Adult health examinat ion Completed 201309/02/2017 RECORDED 11/28/19 14 12:58PM BY CORINA AUSTIN MA, OFFICE VISIT Deneen last [facility] 8 15:58:46 Adult health examinat ion Completed 201201/29/2014 RECORDED 11/10/19 13 1:36PM BY CORINA AUSTIN MA, ANNOTATI ON/ADDEN DUM Deneen last [facility] 8 15:58:46 Insomnia 676621392 Completed 201301/29/2014 RECORDED 11/28/19 14 12:57PM BY CORINA KOLOSEWI CZ, MA, ANNOTATI ON/ADDEN DUM Not Available [facility] 4 14:53:28 Patient status finding [id number] Completed 201309/02/2017 RECORDED 11/28/19 14 12:58PM BY CORINA AUSTIN MA, OFFICE VISIT Deneen last, [facility] 8 15:58:40 Panic disorder without agorapho gurpreet 86822362 Active 2013 Not Available [facility] 0 13:05:47 Administ ration of diphther ia, pertussi s, and tetanus vaccine Completed 201309/02/2017 RECORDED 11/28/19 14 1:36PM BY BELKIS MAHARAJ MD, OFFICE VISIT Deneen last, [facility] 8 15:59:08 Disorder of thyroid gland 58539707 Completed 201311/13/2018 Solange Josue PA-C [address] [facility] [address], [place], [address] , [facility] 9 11:51:22 Vitamin D deficien cy 76406483 Active 2013 Not Available [facility] 0 13:05:47 Patient status finding [id number] Completed 201202/21/2014 RECORDED 11/10/19 13 1:36PM BY CORINA AUSTIN MA, ANNOTATI ON/ADDEN DUM Deneen last, [facility] 8 15:58:40 Dizzines s and giddines s 486273265 Completed 201202/21/2014 RECORDED 08/03/19 13 12:59PM BY CORINA AUSTIN MA, ANNOTATI ON/ADDEN DUM Not Available [facility] 4 13:03:30 Insomnia 069159287 Completed 201302/21/2014 RECORDED 11/28/19 14 12:57PM BY CORINA AUSTIN MA, ANNOTATI ON/ADDEN DUM Not Available [facility] 4 13:03:30 Patient status finding [id number] Completed 201202/22/2014 RECORDED 11/10/19 13 1:36PM BY CORINA AUSTIN MA, ANNOTATI ON/ADDEN DUM eDneen last, [facility] 8 15:58:40 Dizzines s and giddines s 739275046 Completed 201202/22/2014 RECORDED 08/03/19 13 12:59PM BY CORINA AUSTIN MA, ANNOTATI ON/ADDEN DUM Not Available [facility] 4 03:51:49 Insomnia 979929218 Completed 201302/22/2014 RECORDED 11/28/19 14 12:57PM BY CORINA AUSTIN MA, ANNOTATI ON/ADDEN DUM Not Available [facility] 4 03:51:49 Shoulder pain 89782426 Completed 09/02/2017 Deneen last [facility] 8 15:59:11 Synoviti s of ankle 41851023564 4103 Active 2017 Not Available [facility] 0 13:05:48 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 [address], [place], [address] , [facility] 2 11:02:19 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 148057163 Active 2021 Solange Josue PA-C [address], [place], [address] , [facility] 2 11:02:25 Mixed hyperlip idemia 363019385 Active 2021 Solange Josue PA-C [address] [facility] [address], [place], [address] , [facility] 2 16:55:14 History of malignan t basal cell neoplasm of skin 769459254 Active 2022 Solange Josue PA-C [address] [facility] [address], [place], [address] , [facility] 3 11:15:22 Metatars algia of left foot 77378607107 9106 Active 2022 Solange Josue PA-C [address] [facility] [address], [place], [address] , [facility] 3 11:32:51 Bunion 282436063 Active 2022 TRENT Head, [facility] 3 16:41:19 Calcanea l spur 76212679 Active 2022 TRENT Head, [facility] 3 16:41:49 Anxiety 03803957 Active 2023 Solange Josue PA-C [address] [facility] [address], [place], [address] , [facility] 4 12:11:53 Prostate specific antigen above referenc e range 773814547 Active 2024 Solange Josue PA-C [address] [facility] [address], [place], [address] , [facility] 5 14:00:41 Problem Notes None recorded. Procedures Surgical History Date Name Laterality Status Provider Name and Address Organization Details Recorded Time 07/26/19 23 embolization procedure completed Johanna Rogers MA [facility] 11/15/2022 10:39:16 02/24/20 22 excision of basal cell carcinoma completed Solange Josue PA-C [address], [address], [facility] 11/15/2022 11:15:09 06/22/20 19 Colonoscopy completed Cecelia Posadas [facility] 06/28/2019 13:10:12 03/14/20 18 Dbrdmt ecz/infected skin<10% completed Eli Méndez MA [facility] 11/13/2018 11:22:26 03/14/20 18 Arthroscopic Surgery completed Cecelia Posadas [facility] 11/14/2018 10:48:37 excision of basal cell carcinoma completed Darling Goncalves MA [facility] 06/04/2024 11:11:37 Imaging Results Imaging Date Name Status LastModified by Organiz ation Details LastModified Time 01/14/2023 XR, foot, 3 or more view completed [facility] [address] [place] [address], [address], 02/02/2023 11:02:42 01/14/2023 XR, foot, 3 or more view completed [facility] [address], [address], 01/19/2023 15:37:41 01/14/2023 XR, foot, 3 or more view completed [facility] [address], [address], 01/19/2023 15:37:41 01/14/2023 XR, foot, 3 or more view completed [facility] [address], [address], 01/19/2023 15:37:42 01/14/2023 XR, foot, 3 or more view completed stefanie [facility] [place] [address] [place] [address], [address], 03/02/2023 16:42:49 01/14/2023 XR, foot, 3 or more view completed [facility] [address], [address], 02/02/2023 23:41:13 01/14/2023 XR, foot, 3 or more view completed [facility] [address], [address], 02/02/2023 23:39:24 01/14/2023 XR, foot, 3 or more view completed [facility] [address], [address], 02/02/2023 23:40:49 03/27/2024 US, duplex, retroperitone um, complete completed [facility] (Medical Records) [address] [place], [address], 06/04/2024 11:43:08 Procedure Notes None recorded. Medical Equipment None Reported. Allergies Allergen ID Allergen Name Allergen Category Reaction Reaction Severity Criticality Documentation Date Start Date Code Code System Note Provider Name and Address Organization Details Recorded Time Substance with sulfonami de structure and antibacte rial mechanism of action (substanc e) medicatio n hives Not available Not available 10/04/20142013 49765 8003 SNOMED Ariana Justyn-TRENT Ambrosio MA [facility] 8 11:26:47 Medications Name Sig Start Date [...] Available Not Available Not Available Flucelvax Quad (PF) 60 mcg (15 mcg x 4)/0.5 mL IM syringe 11/13 completed Not Available Not Available Not Available Vitals Date Recorded Body height Body weight Heart rate Oxygen saturation Oxygen saturation in Arterial blood by Pulse oximetry Body temperature Systolic blood pressure Diastolic blood pressure Provider Name and Address Organization Details Last Updated DateTime 3 175.26 cm 35539.3 6 g 69 /min 96 % 96 % 97.2 [degF] 133 mm[Hg] 78 mm[Hg] Johanna Rogers MA [facility] 3 10:38:50 Date Recorded Body height Body mass index (BMI) Body weight Heart rate Oxygen saturation Oxygen saturation in Arterial blood by Pulse oximetry Body temperature Heart rate Systolic blood pressure Diastolic blood pressure Systolic blood pressure Diastolic blood pressure Provider Name and Address Organization Details Last Updated DateTime 3 175.26 cm 25.8 kg/m2 40132.2 3 g 51 /min 98 % 98 % 97.8 [degF] 69 /min 149 mm[Hg] 73 mm[Hg] 138 mm[Hg] 76 mm[Hg] [facility] 3 09:42:02 Date Recorded Body height Body mass index (BMI) Body weight Heart rate Oxygen saturation Oxygen saturation in Arterial blood by Pulse oximetry Body temperature Systolic blood pressure Diastolic blood pressure Provider Name and Address Organization Details Last Updated DateTime 4 175.26 cm 26.9 kg/m2 23675.2 1 g 69 /min 97 % 97 % 97.6 [degF] 136 mm[Hg] 77 mm[Hg] Darling Goncalves MA [facility] 4 11:12:45 Date Recorded Body weight Provider Name an d Address Organization Details Last Updated DateTime 10/09/2024 31141.03 g Trice Galicia MA [facility] Letitia [facility] 10/09/2024 13:26:56 Social History Question Answer Notes LastModified by Organizat ion Details LastModified Time Tobacco Smoking Status Never Smoker Monique last [facility] 12/03/2014 13:58:26 Do You Have An Advance [...] influenza, unspecified formulation 4 completed Cecelia last [facility] 05/15/2020 13:13:45 Influenza, split virus, quadrivalent, PF 0 completed Cecelia last, [facility] 05/15/2020 13:13:45 Influenza, MDCK, quadrivalent, PF 8 completed TRENT Brandon, [facility] 10/19/2021 10:22:28 COVID-19, mRNA, LNP-S, PF, 30 mcg/0.3 mL dose 1 completed TRENT Brandon [facility] 10/19/2021 10:22:28 COVID-19, mRNA, LNP-S, PF, 30 mcg/0.3 mL dose 1 completed TRENT Brandon, [facility] 10/19/2021 10:22:28 COVID-19, mRNA, LNP-S, PF, 100 mcg/0.5mL dose or 50 mcg/0.25mL dose 1 completed TRENT Brandon, [facility] 10/19/2021 10:22:28 Influenza, MDCK, quadrivalent, PF 2 completed TRENT Crespo, [facility] 11/15/2022 10:32:03 Influenza, MDCK, quadrivalent, PF 3 completed TRENT Guardado, [facility] 08/16/2023 15:20:50 Tdap 4 completed Cecelia last [facility] 05/15/2020 13:13:45 Influenza, split virus, quadrivalent, PF 01/16/202 0 completed Not Available [facility] 08/04/2019 02:22:10 Influenza, split virus, trivalent, PF 4 completed Solange Josue PA-C [address] [address], [place], [address], [facility] 06/04/2024 12:11:51 Past Encounters Encounter ID Performer Location Encounter Start Date Encounter Closed Date Diagnosis/Indication Diagnosis SNOMED-CT Code Diagnosis ICD10 Code Diagnosis Note [id number] autoEComm erce [address] [facility] [place] [address] 09/01/2010 00:00:00 [id number] autoEComm erce [address] [facility] [facility] [place] [address] 12/17/2011 00:00:00 [id number] autoEComm erce [address] [facility] [place] [address] 08/03/2012 00:00:00 [id number] autoEComm erce [address] [facility] [place] [address] 11/09/2012 00:00:00 [id number] autoEComm erce [address] [facility] [place] [address] 03/12/2013 00:00:00 [id number] autoEComm erce [address] [facility] [place] [address] 06/05/2013 00:00:00 [id number] autoEComm erce [address] [facility] [place] [address] 11/27/2013 00:00:00 [id number] Main Office [address] [facility] [address] [facility] [place] [address] 12/03/2014 13:47:56 12/03/2014 14:48:43 Adult health examination 063337051 Shoulder pain 43467195 Panic diso rder without agoraphobia 25351420 pt uses clonazepam rarely. off of SSRI/ doing well/ not an active issue now. [id number] Belkis galindo Main Office [address] [address] [place] [address] 09/03/2016 12:40:15 09/03/2016 14:22:14 Panic disorder 683305012 F41.0 Insomnia 813009881 G47.0 0 [id number] Belkis galindo Main Office [address] [facility] [address] [place] [address] 09/02/2017 15:14:59 09/02/2017 16:42:51 Disorder of thyroid gland 94708597 E07.9 Fatigue 12150797 R53.83 Hyperlipidemia 64109573 E78.5 [id number] Regina Sin Main Office [address] [facility] [address] [place] [address] 03/09/2018 10:50:39 03/09/2018 11:49:11 Pre-surgery evaluation 516201281 Z01.818 He is low risk and is cleared for his upcoming surgery. Pigmented villonodular synovitis of ankle joint 741296372 M12.271 [id number] Regina Sin Main Office [address] [address] [place] [address] 11/13/2018 10:54:18 11/13/2018 12:12:12 Adult health examination 885342473 Z00.00 Screening for malignant neoplasm of colon 650053871 Z12.11 Villonodul ar synovitis of subtalar joint 546782022 M12.271 sp surgery last fall - cont to f/u c ortho Mixed hyperlipidemia 267 092273 E78.2 rec less red meat and low carb diet -- initially rev. 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 Body mass index 25-29 - overweight 717027924 Z68.28 Impaired f asting glycemia 245717679 R73.01 Overweight 717533106 E66 .3 [id number] Regina Sin Main Office [address] [facility] [address] [place] [address] 08/02/2019 11:28:56 08/02/2019 12:31:16 Needs influenza immunization 614676779 Z23 Cellulitis of lower limb 999333397 L03.115 will tx with doxy to cover cellulitis and lyme though tick is large, very unlikley Anxiety 26074759 F41.9 use prn Tick bite 34494260 W57.X XXA no need for testing see above Insect bit e to leg - nonvenomous 718665155 S80.861A [id number] Solange Josue PA-C Main Office [address] [place] [address] 10/19/2021 10:01:02 10/19/2021 11:15:34 Adult health examination 116955728 Z00.00 Mixed hyperlipidemia 267 904424 E78.2 rec less red meat and low carb diet -- initially rev. ascvd risk c pt Vitamin D deficiency 347 48775 E55.9 Christiano thyroiditis 21 945192 E06.3 Overweight 930748419 E66 .3 Body mass index 25-29 - overweight 595346968 Z68.27 Impaired f asting glycemia 182643410 R73.01 Benign pro static hyperplasia with outflow obstruction 723516502 N40.1 will get uro eval and check psa Anxiety state 656403972 F41.1 stable lately - mindfulnes s, used to see therapist Skin lesion 56715654 L98 .9 Hepatitis C screening 41 9964190 Z11.59 Varicella vaccination 68 515745 Z23 Pain in left foot 621227 0055 78530 M79.672 periodical ly, fernando from [employer] / sandal - x ~ 3 yrs - will get podiatry eval [id number] Brando Bernabe MD [facility] [address] [address] [place] [address] 11/20/2021 10:31:13 11/23/2021 08:42:37 Cough 57675222 R05.1 [id number] Solange Josue PA-C Main Office [address] [place] [address] 11/15/2022 10:20:53 11/15/2022 11:47:52 Adult health examination 879752026 Z00.00 History of malignant basal cell neoplasm of skin 067563266 Z85.828 s/p resection 8.9.22, cont f/u c ne derm q yr Benign pro static hyperplasia with outflow obstruction 299369995 N40.1 will get uro eval and check psa 5.23 - better p prostate embolizati on c ne vascular, does not wish to go back downstairs to uro - will get eval c another group Nocturia 055058985 R35.1 Mixed hyperlipidemia 267 860978 E78.2 rec less red meat and low carb diet -- initially rev. ascvd risk c pt Vitamin D deficiency 347 43681 E55.9 Fatigue 95951297 R53.83 Impaired f asting glycemia 221597456 R73.01 Metatarsal darrell of left foot 4861781683 69335 M77.42 will get ortho eval [id number] Erendira Tinoco MD Main Office [address] [place] [address] 11/30/2022 09:24:29 11/30/2022 10:06:00 Metatarsalgia 11222211 M77.41 Suspected Metatarsal giaAdvised warm soaks.NSAI D given, aware not to take with any other otc NSAID. Reminded to get PE labs.Podia try referral given so they can eval for foot mechanics. Will also get xray to ensure no stress fx. Pain in left foot 073364 6070 59974 M79.672 Has been having ongoing issues on left foot requesting xray given that he is having right foot done. [id number] Solange Josue PA-C [facility] [address] [place] [address] 08/16/2023 15:02:42 08/16/2023 16:23:13 Benign prostatic hyperplasia with outflow obstruction 364691726 N40.1 will get uro eval and check [...] plane in past)noctu pal x 2/night lately [id number] Solange Josue PA-C Main Office [address] [facility] [address] [place] [address] 06/04/2024 10:54:41 06/04/2024 12:11:20 Adult health examination 521446585 Z00.00 colon utd Needs infl uenza immunization 244537852 Z23 19 YEARS AND OLDER ONLY Benign pro static hyperplasia with outflow obstruction 741572237 N40.1 will get uro eval and check [...] cont f/u c uro Christiano thyroiditis 21 517102 E06.3 History of malignant basal cell neoplasm of skin 982692162 Z85.828 stable - s/p resection 8.9.22, cont f/u c ne derm q yr Mixed hyperlipidemia 267 301761 E78.2 rec less red meat and low carb diet -- initially rev. ascvd risk c pt Body mass index 25-29 - overweight 397055050 E66.3 Z68.26 Impaired f asting glycemia 371428887 R73.01 Anxiety 19447336 F41.9 mild on jes, does a lot of mindfulnes s, does have old rx from [facility] for prn benzo - is running low, rarely uses, requests refill - low abuse potential [id number] Solange Josue PA-C [facility] [address] [facility] [address] [facility] [place] [address] 10/09/2024 13:13:06 10/09/2024 15:55:39 Prostate specific antigen above reference range 134331167 R97.20 reviewed yesterday' s uro note c pt - plan is to recheck psa in 1 monthcont f/u c uro end of 4.25 Christiano thyroiditis 21 658102 E06.3 Fatigue 65623865 R53.83 Vitamin D deficiency 347 32675 E55.9 Costal chondritis 537643 04 M94.0 rec warm compress to sternum Health Concerns Section Related Observation LastModified by Organization Detai ls LastModified Time None Recorded Concern Status LastModified by Organization Details LastModified Time None Recorded Advance Directives Directive N: Payers Encounter Date Sequence Insurance Name Policy Number Policy Matute Covered Member ID Matute Member ID Guarantor Name 11/15/2022 1 [place] [id number] Мария P Eddi [id number] Мария Montague 11/30/2022 1 [place] [id number] Мария P Eddi [id number] Мария Montague 08/16/2023 1 [place] [id number] Мария P Eddi [id number] Мария Montague 06/04/2024 1 [place] [id number] Мария P Eddi [id number] Мария Montague 10/09/2024 1 [place] [id number] Мария P Eddi [id number] Мария Montague Notes Date Note Type Note Provider Name and Address Organization Details Recorded Time 11/15/2022 text/html here for annual pe. Solange Josue PA-C [address] [address], [place], [address], [facility] 11/15/2022 11:43:16 11/30/2022 text/html Musculoskeletal PainReported bypatient.Location:[facility] foot Quality:sharp;dull Severity:improving Duration:present <1 month Context:overuse; running Alleviating factors:rest Associated Symptoms:no fever; no weak limbs; no tingling; no numbness of the legs/feetNotes:Recent ly started running chief complaint was pain on ball of right foot for ~ 6 days. Has concern wart maybe developing since he had in past. Erendira Tinoco MD [address] [facility] [address], [place], [address], [facility] 11/30/2022 10:09:26 08/16/2023 text/html Video appt.Patie nt c/o urinary urgency when in high altitudes. He will be traveling via plane in 2 weeks. pt states he only gets urgency (more so inability to urinate so felt the urgency to go -- couldn't urinate on the plane, able to do so in airport after) at high altitudes - pending see urologist in [place] in several weeks, wouldn't give him script w/o being seen has never been on flomax curr - has 2 episodes of nocturia Solange Josue PA-C [address] [address], [place], [address], [facility] 08/16/2023 16:05:50 06/04/2024 text/html here for annual pe. Solange Josue PA-C [address] [facility] [address], [place], [address], [facility] 06/04/2024 12:12:18 10/09/2024 text/html Phone visit-pt h aving discomfort. psa test was very high. pt prefer a phone call. rev chart - just seen by uro yesterday - rev note in detail c pt also c/o fullness chest, thyroid, esophagus, neck region - concerned about christiano'srequests sed rate to be checked too Solange Josue PA-C [address] [address], [place], [address], [facility] 10/09/2024 14:19:31
--- OUTSIDE RECORDS SUMMARY | 2024-11-06 14:45 | XMS_ITS ---
Author Organization [facility] Address [address] [place] [address] Care Team Providers Care Chemist Intern Name Role Phone Tony Palomares PA-C Primary Care Provider Unava ilYuan Medina Unavailable [phone] REASON FOR VISIT wayne inj Encounters Encounter Location Date Provider Diagnosis [facility] [address] [place] [address] 08/30/2023 Yuan Muller Plan Of Treatment No Information Progress Notes * John MONTAGUE JrDOB:[birth year] (58 yo M)Acc No.[id number]:08/30/2023 Patient:?oJhn Montague :1965???Age:58 Y???Sex:Male Address:[address] [place] [address] * true * Date:? Generated for Printi gold/Benson/eTransmitting on:?11/06/2024 02:44 PM EDT
== END 2024-11-06 13:21 | disposition home or self-care (01) ==
LOC: HO.HUSH 12:26
PROVIDERS: PCP Physician Assistant Medical; Visit Provider Nurse Practitioner Family
DX: R97.20 Elevated prostate specific antigen [PSA] (principal); Z80.42 Family history of malignant neoplasm of prostate
CPT/HCPCS: 99213

== ENCOUNTER → 2024-11-06 12:26 | Outpatient (BNVA) | payer BC, SELFPAY | PROVIDERS: PCP Physician Assistant Medical; Visit Provider Nurse Practitioner Family ==

== ENCOUNTER → 2024-12-28 08:58 | Outpatient (BNV) | payer BC, SELFPAY | PROVIDERS: Visit Provider Radiology Diagnostic Radiology | DX: Z80.42 Family history of malignant neoplasm of prostate (principal) | CPT/HCPCS: 72197 ==

== ENCOUNTER 2024-12-28 09:01 | Outpatient (REF) | payer BC, SELFPAY ==
--- NOTE | ~2024-12-28 | MR_ITS ---
EXAMINATION: MR PROSTATE WITHOUT THEN WITH IV CONTRAST HISTORY: Z80.42 - Family history of malignant neoplasm of prostate TECHNIQUE: 1.5T body coil survey of the pelvis was performed. Phase array coil imaging of the prostate was performed in multiplanar high resolution axial, coronal, sagittal fast spin echo T2 and axial T1 weighted imaging sequences. Axial diffusion imaging at intermediate and high field performed with ADC mapping. Next, 8.5 mL Gadavist was given by intravenous infusion, and dynamic axial imaging performed. COMPARISON: There are no prior studies available for comparison. CLINICAL DATA: Most recent PSA: 3.52 ng/mL on 10/15/2024. PSA Density: 0.075 ng/mL squared Prostate Biopsy: None reported FINDINGS: Prostate size: 4.3 x 5.0 x 4.2 cm. Calculated prostate volume is 47.0 mL. Hemorrhage: None. Transitional Zone: There is moderate heterogeneous nodular hypertrophy of the transitional zone. Peripheral Zone: No discrete focus of abnormal signal intensity is identified. There are no foci of restricted diffusion. Seminal Vesicles/Ejaculatory Ducts: Symmetric and normal in signal and caliber. Pelvic Lymph Nodes: No obturator or internal iliac lymph nodes meeting size criteria for adenopathy. Marrow Signal: Normal marrow signal and enhancement without focal lesion identified. MR/MR Prostate wo/w con IMPRESSION: No discrete focus of abnormal signal intensity is identified to suggest clinically significant prostate carcinoma. PI-RADS 1: Very low (clinically significant cancer is highly unlikely to be present) PI-RADS Assessment Categories PI-RADS 1: Very low (clinically significant cancer is highly unlikely to be present) PI-RADS 2: Low (clinically significant cancer is unlikely to be present) PI-RADS 3: Intermediate (the presence of clinically significant cancer is equivocal) PI-RADS 4: High (clinically significant cancer is likely to be present) PI-RADS 5: Very high (clinically significant cancer is highly likely to be present) [employer]. MR Prostate Imaging Reporting and Data System version 2.1. [email or web address] Electronically signed by: Alon Flores MD 12/28/2024 10:40 AM EDT
--- OUTSIDE RECORDS SUMMARY | 2024-12-28 09:28 | XMS_ITS | Data Portability ---
Author Organization [facility], Main Office Address [address] [facility] [address] [place] [id number] Care Team Providers Care Public Health Veterinarian Name Role Phone LIATSOLANGE Primary Care Provider [phone] FLORIDA LAGUNAS Orthopedic Surgeon [phone] AWA WILSON Shoe Trimmer ROSALINDA POND Urologist ARMEN SAMAYOA Feed Management Advisor Assessment Encounter Date Assessment Date Assessment LastModified by Organization Details LastModified Time 08/16/2023 08/16/2023 This service was provided using telemedicine. Patient consented to video & audio visit Patient was located in the [facility]. Provider was located in the office. No other persons participated in the telemedicine visit except for the patient unless otherwise indicated here. Total time of visit was 18 minutes. pmadden Not available 08/16/2023 16:04:17 10/09/2024 10/09/2024 This service was provided using telemedicine. Patient consented to telephone visit Patient was located in the [facility]. Provider was located in the office. No other persons participated in the telemedicine visit except for the patient unless otherwise indicated here. Total time of visit was 21 minutes. pmadden Not available 10/09/2024 14:17:33 11/13/2024 11/13/2024 This service was provided using telemedicine. Patient consented to video & audio visit Patient was located at home in the [facility]. Provider was located in the office. No other persons participated in the telemedicine visit except for the patient unless otherwise indicated here. Total time of visit was 30 minutes. pmadden Not available 11/13/2024 16:15:41 Plan of Treatment Reminders Order Date Submit Date Provider Last Modified By Organization Details Last Modified Time Details Appointments None record ed. Lab lipid panel, serum 2024 pmadden [facility] (Centralized Electronic Ordering - All Locations), Patient Can Go To The Location Of Their Choice, 16:17:59 CMP, serum or plasma 2024 pmadden [facility] (Centralized [facility] Ordering - All Locations), Patient Can Go To The Location Of Their Choice, 16:17:59 CK (creat ine kinase ), total, serum 2024 pmadden [facility] ([facility]ized [facility] Ordering - All Locations), Patient Can Go To The Location Of Their Choice, 16:17:59 PSA, total, serum or plasma 2024 pmadden [facility] (Centralized Electronic Ordering - All Locations), Patient Can Go To The Location Of Their Choice, 16:18:00 PSA, total, serum or plasma 2024 VIBHA [facility] (Centralized Electronic Ordering - All Locations), Patient Can Go To The Location Of Their Choice, 06:13:52 TSH + free T4, serum 2024 VIBHA [facility] ([facility] Ordering - All Locations), Patient Can Go To The Location Of Their Choice, 14:18:37 T3, free, serum or plasma 2024 VIBHA [facility] ([facility]ized Electronic Ordering - All Locations), Patient Can Go To The Location Of Their Choice, 06:13:54 vitami n D, 25-hyd lacy, total, serum 2024 VIBHA [facility], [address], [place], [address], 06:13:53 CBC w/ auto diff 2024 VIBHA [...] Go To The Location Of Their Choice, 06:13:53 lipid panel, serum 2023 VIBHA [facility] (Centralized Electronic Ordering - All Locations), Patient Can Go To The Location Of Their Choice, 06:13:56 CMP, serum or plasma 2023 VIBHA [facility] ([facility]ized Electronic Ordering - All Locations), Patient Can Go To The Location Of Their Choice, 06:13:56 CBC w/ auto diff 2023 VIBHA [facility] ([facility]ized [facility] Ordering - All Locations), Patient Can Go To The Location Of Their Choice, 06:13:56 HbA1c (hemog lobin A1c), blood 2023 VIBHA [facility] ([facility]ized Electronic Ordering - All Locations), Patient Can Go To The Location Of Their Choice, 5 06:13:57 TSH, ultra- sensit mali, serum 2023 VIBHA [facility] (Centralized Electronic Ordering - All Locations), Patient Can Go To The Location Of Their Choice, 06:13:57 Referral nutrit ionist /dieti akila referr al 2023 024 [email or web address] Not available 4 12:28:36 podiat rist referr al 2022 023 [email or web address] Not available 3 16:28:40 Procedures None record ed. Surgeries None record ed. Imaging XR, foot, 3 or [facility], Internal Use Only DO Not Attach Compendium DO Not Attach Compendium, Do Not Delete/merge, [id number] 3 14:04:03 XR, foot, 3 or more view 2022 023 [facility] Order, Internal Use Only DO Not Attach Compendium DO Not Attach Compendium, Do Not Delete/merge, [id number] 3 14:04:04 Medication Orders rosuva statin 5 mg tablet 2024 025 [facility]1972, [address] [place] [address], [id number], 5 16:18:02 loraze michael 0.5 mg tablet 2023 024 [facility], [address] [place] [address], [id number], 4 12:12:00 tamsul osin 0.4 mg capsul e 2023 024 [email or web address] [facility]/Pharmacy #[facility], [address] [place] [address], [id number], 4 11:09:06 Mobic 15 mg tablet 2022 023 stefanie [facility] #1972, [address] [place] [address], [id number], 4 15:21:04 Patient Targets Encounter Date Encounter Id Patient Goals Patient Target Last Modified By Organization Details Last Modified Time 06/04/2024 [id number] 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 pmadden Not available 06/04/2024 11:46:42 11/13/2024 [id number] Ongoing of LDL Direct <100 Not available Not available Not available Ongoing of LDL Direct yearly Not available Not available Not available 11/13/2024 [id number] Pt agrees to follow low fat diet, avoid saturated fats , decrease carbohydrate intake to 45 - 50 gm per meal , pt agrees to develop a regular pattern of exercise such as walking 30 minutes a day 3 times a week, Pt will keep a record of exercise and activity level Patient preferences and goals incorporated in plan and updated/modified as needed to reflect progress toward goal. pmadden Not available 11/13/2024 16:17:37 Patient Instructions Encounter Date Encounter Id Patient Instructions Last Modified By Organization Details Last Modified Time 11/30/2022 [id number] metatarsalgia: care instructions ckokar Not available 11/30/2022 10:02:46 08/16/2023 [id number] benign prostatic hyperplasia: care instructions pmadden Not available 08/16/2023 16:03:32 Follow up as needed. pmadden Not available 08/16/2023 16:03:14 06/04/2024 [id number] Well Visit 50 to 65: Care Instructions pmadden Not available 06/04/2024 12:11:47 When You Want to Lose Weight: Care Instructions pmadden Not available 06/04/2024 12:11:48 Nutrition Referral and Weight Management Follow-up Information pmadden Not available 06/04/2024 12:11:48 Discussed risks for driving while using this medication. pmadden Not available 06/04/2024 11:46:10 10/09/2024 [id number] costochondritis: care instructions pmadden Not available 10/09/2024 14:18:33 encouraged pt to check outstanding labs as directed pmadden Not available 10/09/2024 14:17:43 Follow up if no improvement or if symptoms worsen. pmadden Not available 10/09/2024 14:15:17 11/13/2024 [id number] high cholesterol : care instructions pmadden Not available 11/13/2024 16:18:00 heart-healthy diet: care instructions pmadden Not available 11/13/2024 16:17:59 statins: care instructions pmadden Not available 11/13/2024 16:18:00 Prostate Cancer Screening pmadden Not available 11/13/2024 16:17:59 Medications (OTC , herbal therapies, supplements) reviewed and reconciled with patient and or caregiver, including potential side effects, drug interactions, instructions, and the consequences of not taking medication. Reviewed potential barriers to medication adherence, such as side effects from medication or cost of medication. pmadden Not available 11/13/2024 16:17:31 Reason for Referral Erecting Engineer Referral for Magnolia tarsalgia Referring Physician: Erendira Tinoco, Family Medicine, Encounter Date: 11/30/2022 Outdoor Emergency Care Technician/dietitian Refer ral for Body mass index 25-29 - overweight Referring Physician: Solange Palomares, Internal Medicine, Encounter Date: 06/04/2024 Results Created [...] The Location Of Their Choice, 01/24/2023 16:23:34 07/10/20 23 01/24/2023 COMPL ETE CBC WITH DIFF abs. NRBC [...] 01/24/2023 COMPR EHENS MALI METAB OLIC PANL sodium [...] 01/24/2023 COMPR EHENS MALI METAB OLIC PANL bilirubin,to [...] 3_M2 Creat inine based estim ated glome adánr cruz ation (eGFR ) in adult s is [...] Go To The Location Of Their Choice, [id number] 01/24/2023 18:35:33 10/20/19 25 10/19/2024 PROST ATE-S [...] of tae ruiz se. Not Available [facility] ([facility]) [address] [facility], [place], [address], 10/20/2024 06:13:52 10/20/19 25 10/20/2024 VITAM IN [...] and D. Mary brady [place]: [employer] . 2. Jo Ann KWAN, Becky levin [place], Vince off-F errar i GOMEZ, et al. Evalu ation , treat ment, and preve ntion of vitam in D defic iency : an Endoc rine Socie ty clini garrison pract ice guide line. JCEM. 2010; 96(7) :1911 -30. Not Available [facility] ([facility]) [address] [facility], [place], [address], 10/20/2024 06:13:52 10/20/19 25 10/19/2024 SEDIM ENTAT ION RATE- WESTE RGREN sedimentatio n rate-westerg talita 2 mm/HR 0-30 normal Not Available [facility] ([facility]) [address] [place], [address], 10/20/2024 06:13:53 10/20/19 25 10/19/2024 TRIIO DOTHY JHOAN E (T3), FREE triiodothyro nine (T3), free 2.8 pg/mL 2.0-4. 4 normal Not Available [facility] ([facility]) [address] [place], [address], 10/20/2024 06:13:54 10/20/19 25 10/19/2024 CBC WITH DIFFE RENTI AL/PL ATELE T WBC 5.5 x10e3 /uL 3.4-10 .8 normal Not Available [facility] ([facility]) [address] [place], [address], 10/20/2024 06:13:56 10/20/19 25 10/19/2024 CBC WITH DIFFE RENTI AL/PL ATELE T RBC 4.99 x10e6 /uL 4.14-5 .80 normal Not Available [facility] ([facility]) [address] [place], [address], 10/20/2024 06:13:56 10/20/19 25 10/19/2024 CBC WITH DIFFE RENTI AL/PL ATELE T hemoglobin 16.2 g/dL 13.0-1 7.7 normal Not Available [facility] ([facility]) [address] [facility], [place], [address], 10/20/2024 06:13:56 10/20/19 25 10/19/2024 CBC WITH DIFFE RENTI AL/PL ATELE T hematocrit 46.6 % 37.5-5 1.0 normal Not Available [facility] ([facility]) [address] [facility], [place], [address], 10/20/2024 06:13:56 10/20/19 25 10/19/2024 CBC WITH DIFFE RENTI AL/PL ATELE T MCV 93 fL 79-97 normal Not Available [facility] ([facility]) [address] [facility], [place], [address], 10/20/2024 06:13:56 10/20/19 25 10/19/2024 CBC WITH DIFFE RENTI AL/PL ATELE T MCH 32.5 pg 26.6-3 3.0 normal Not Available [facility] ([facility]) [address] [place], [address], 10/20/2024 06:13:56 10/20/19 25 10/19/2024 CBC WITH DIFFE RENTI AL/PL ATELE T MCHC 34.8 g/dL 31.5-3 5.7 normal Not Available [facility] ([facility]) [address] [place], [address], 10/20/2024 06:13:56 10/20/19 25 10/19/2024 CBC WITH DIFFE RENTI AL/PL ATELE T RDW 12.9 % 11.6-1 5.4 Not Available [facility] ([facility]) [address] [place], [address], 10/20/2024 06:13:56 10/20/19 25 10/19/2024 CBC WITH DIFFE RENTI AL/PL ATELE T platelets 240 x10e3 /uL 150-45 0 normal Not Available [facility] ([facility]) [address] [facility], [place], [address], 10/20/2024 06:13:56 10/20/19 25 10/19/2024 CBC WITH DIFFE RENTI AL/PL ATELE T neutrophils 44 % not estab. normal Not Available [facility] ([facility]) [address] [facility], [place], [address], 10/20/2024 06:13:56 10/20/19 25 10/19/2024 CBC WITH DIFFE RENTI AL/PL ATELE T lymphs 46 % not estab. normal Not Available [facility] ([facility]) [address] [facility], [place], [address], 10/20/2024 06:13:56 10/20/19 25 10/19/2024 CBC WITH DIFFE RENTI AL/PL ATELE T monocytes 8 % not estab. normal Not Available [facility] ([facility]) [address] [facility], [place], [address], 10/20/2024 06:13:56 10/20/19 25 10/19/2024 CBC WITH DIFFE RENTI AL/PL ATELE T eos 2 % not estab. normal Not Available [facility] ([facility]) [address] [facility], [place], [address], 10/20/2024 06:13:56 10/20/19 25 10/19/2024 CBC WITH DIFFE RENTI AL/PL ATELE T basos 0 % not estab. normal Not Available [facility] ([facility]) [address] [facility], [place], [address], 10/20/2024 06:13:56 10/20/19 25 10/19/2024 CBC WITH DIFFE RENTI AL/PL ATELE T immature cells SERVICE STATION CONSOLE OPERATOR Not Available [facility] ([facility]) [address] [facility], [place], [address], 10/20/2024 06:13:56 10/20/19 25 10/19/2024 CBC WITH DIFFE RENTI AL/PL ATELE T neutrophils (absolute) 2.4 x10e3 /uL 1.4-7. 0 normal Not Available [facility] ([facility]) [address] [facility], [place], [address], 10/20/2024 06:13:56 10/20/19 25 10/19/2024 CBC WITH DIFFE RENTI AL/PL ATELE T lymphs (absolute) 2.6 x10e3 /uL 0.7-3. 1 normal Not Available [facility] ([facility]) [address] [place], [address], 10/20/2024 06:13:56 10/20/19 25 10/19/2024 CBC WITH DIFFE RENTI AL/PL ATELE T monocytes(ab solute) 0.5 x10e3 /uL 0.1-0. 9 normal Not Available [facility] ([facility]) [address] [facility], [place], [address], 10/20/2024 06:13:56 10/20/19 25 10/19/2024 CBC WITH DIFFE RENTI AL/PL ATELE T eos (absolute) 0.1 x10e3 /uL 0.0-0. 4 normal Not Available [facility] ([facility]) [address] [place], [address], 10/20/2024 06:13:56 10/20/19 25 10/19/2024 CBC WITH DIFFE RENTI AL/PL ATELE T baso (absolute) 0.0 x10e3 /uL 0.0-0. 2 normal Not Available [facility] ([facility]) [address] [place], [address], 10/20/2024 06:13:56 10/20/19 25 10/19/2024 CBC WITH DIFFE RENTI AL/PL ATELE T immature granulocytes 0 % not estab. Not Available [facility] ([facility]) [address] [facility] [place], [address], 10/20/2024 06:13:56 10/20/19 25 10/19/2024 CBC WITH DIFFE RENTI AL/PL ATELE T immature grans (abs) 0.0 x10e3 /uL 0.0-0. 1 Not Available [facility] ([facility]) [address] [facility], [place], [address], 10/20/2024 06:13:56 10/20/19 25 10/19/2024 CBC WITH DIFFE RENTI AL/PL ATELE T NRBC SERVICE STATION CONSOLE OPERATOR Not Available [facility] ([facility]) [address] [facility], [place], [address], 10/20/2024 06:13:56 10/20/19 25 10/19/2024 CBC WITH DIFFE RENTI AL/PL ATELE T hematology comments: SERVICE STATION CONSOLE OPERATOR Not Available [facility] ([facility]) [address] [facility], [place], [address], 10/20/2024 06:13:56 10/20/19 25 10/19/2024 COMP. METAB OLIC PANEL (14) glucose 98 mg/dL 70-99 normal Not Available [facility] ([facility]) [address] [facility], [place], [address], 10/20/2024 06:13:56 10/20/19 25 10/19/2024 COMP. METAB OLIC PANEL (14) BUN 16 mg/dL 6-24 normal Not Available [facility] ([facility]) [address] [facility], [place], [address], 10/20/2024 06:13:56 10/20/19 25 10/19/2024 COMP. METAB OLIC PANEL (14) creatinine 1.25 mg/dL 0.76-1 .27 normal Not Available [facility] ([facility]) [address] [facility], [place], [address], 10/20/2024 06:13:56 10/20/19 25 10/19/2024 COMP. METAB OLIC PANEL (14) eGFR 67 mL/mi n/1.7 3 >59 normal Not Available [facility] ([facility]) [address] [facility], [place], [address], 10/20/2024 06:13:56 10/20/19 25 10/19/2024 COMP. METAB OLIC PANEL (14) BUN/creatini ne ratio 13 9-20 normal Not Available [facility] ([facility]) [address] [facility], [place], [address], 10/20/2024 06:13:56 10/20/19 25 10/19/2024 COMP. METAB OLIC PANEL (14) sodium 141 mmol/ L 134-14 4 normal Not Available [facility] ([facility]) [address] [facility], [place], [address], 10/20/2024 06:13:56 10/20/19 25 10/19/2024 COMP. METAB OLIC PANEL (14) potassium 4.5 mmol/ L 3.5-5. 2 normal Not Available [facility] ([facility]) [address] [place], [address], 10/20/2024 06:13:56 10/20/19 25 10/19/2024 COMP. METAB OLIC PANEL (14) chloride 107 mmol/ L 96-106 above high normal Not Available [facility] ([facility]) [address] [facility], [place], [address], 10/20/2024 06:13:56 10/20/19 25 10/19/2024 COMP. METAB OLIC PANEL (14) carbon dioxide, total 23 mmol/ L 20-29 normal Not Available [facility] ([facility]) [address] [facility], [place], [address], 10/20/2024 06:13:56 10/20/19 25 10/19/2024 COMP. METAB OLIC PANEL (14) calcium 9.7 mg/dL 8.7-10 .2 normal Not Available [facility] ([facility]) [address] [place], [address], 10/20/2024 06:13:56 10/20/19 25 10/19/2024 COMP. METAB OLIC PANEL (14) protein, total 7.3 g/dL 6.0-8. 5 normal Not Available [facility] ([facility]) [address] [place], [address], 10/20/2024 06:13:56 10/20/19 25 10/19/2024 COMP. METAB OLIC PANEL (14) albumin 4.7 g/dL 3.8-4. 9 normal Not Available [facility] ([facility]) [address] [place], [address], 10/20/2024 06:13:56 10/20/19 25 10/19/2024 COMP. METAB OLIC PANEL (14) globulin, total 2.6 g/dL 1.5-4. 5 Not Available [facility] ([facility]) [address] [place], [address], 10/20/2024 06:13:56 10/20/19 25 10/19/2024 COMP. METAB OLIC PANEL (14) bilirubin, total 0.8 mg/dL 0.0-1. 2 normal Not Available [facility] ([facility]) [address] [place], [address], 10/20/2024 06:13:56 10/20/19 25 10/19/2024 COMP. METAB OLIC PANEL (14) alkaline phosphatase 71 IU/L 44-121 normal Not Available [facility] ([facility]) [address] [place], [address], 10/20/2024 06:13:56 10/20/19 25 10/19/2024 COMP. METAB OLIC PANEL (14) AST (SGOT) 27 IU/L 0-40 normal Not Available [facility] ([facility]) [address] [place], [address], 10/20/2024 06:13:56 10/20/19 25 10/19/2024 COMP. METAB OLIC PANEL (14) ALT (SGPT) 25 IU/L 0-44 normal Not Available [facility] ([facility]) [address] [place], [address], 10/20/2024 06:13:56 10/20/19 25 10/19/2024 LIPID PANEL cholesterol, total 250 mg/dL 100-19 9 above high normal Not Available [facility] ([facility]) [address] [place], [address], 10/20/2024 06:13:56 10/20/19 25 10/19/2024 LIPID PANEL triglyceride s 124 mg/dL 0-149 normal Not Available [facility] ([facility]) [address] [place], [address], 10/20/2024 06:13:56 10/20/19 25 10/19/2024 LIPID PANEL HDL cholesterol 45 mg/dL >39 normal Not Available [facility] ([facility]) [address] [place], [address], 10/20/2024 06:13:56 10/20/19 25 10/19/2024 LIPID PANEL VLDL cholesterol garrison 22 mg/dL 5-40 Not Available [facility] ([facility]) [address] [place], [address], 10/20/2024 06:13:56 10/20/19 25 10/19/2024 LIPID PANEL LDL chol calc ([facility]) 183 mg/dL 0-99 above high normal Not Available [facility] ([facility]) [address] [place], [address], 10/20/2024 06:13:56 10/20/19 25 10/19/2024 LIPID PANEL LDL calc comment: SERVICE STATION CONSOLE OPERATOR Not Available [facility] ([facility]) [address] [facility], [place], [address], 10/20/2024 06:13:56 10/20/19 25 10/20/2024 HEMOG LOBIN A1C hemoglobin A1C 5.5 % 4.8-5. 6 normal Predi abete s: 5.7 - 6.4 Diabe mykel: >6.4 Glyce wesly contr ol for adult s with diabe mykel: <7.0 Not Available [facility] ([facility]) [address] [facility], [place], [address], 10/20/2024 06:13:57 10/20/19 25 10/19/2024 TSH RFX ON ABNOR MAL TO FREE T4 TSH 1.830 uIU/m L 0.450- 4.500 normal Not Available [facility] ([facility]) [address] [facility], [place], [address], 10/20/2024 06:13:57 01/20/20 23 01/14/2023 XR, foot, 3 or more view No observ ation record ed. [email or web address] [facility] [address], [address], 02/02/2023 11:02:42 01/20/20 23 01/14/2023 XR, foot, 3 or more view No observ ation record ed. [facility] [address], [address], 01/19/2023 15:37:41 01/20/20 23 01/14/2023 XR, foot, 3 or more view No observ ation record ed. [facility] [address], [address], 01/19/2023 15:37:41 01/20/20 23 01/14/2023 XR, foot, 3 or more view No observ ation record ed. [facility] [place] [address], [address], 01/19/2023 15:37:42 02/03/20 23 01/14/2023 XR, foot, 3 or more view No observ ation record ed. [email or web address] [facility] [place] [address], [address], 03/02/2023 16:42:49 02/03/20 23 01/14/2023 XR, foot, 3 or more view No observ ation record ed. [facility] [place] [address], [address], 02/02/2023 23:41:13 02/03/20 23 01/14/2023 XR, foot, 3 or more view No observ ation record ed. [facility] [place] [address], [address], 02/02/2023 23:39:24 02/03/20 23 01/14/2023 XR, foot, 3 or more view No observ ation record ed. [facility] [place] [address], [address], 02/02/2023 23:40:49 04/04/20 24 03/27/2024 US, duple x, retro perit oneum , compl ete No observ ation record ed. [facility] [address] [place], [address], 06/04/2024 11:43:08 Result Notes None recorded. Problems Name Problem SNOMED Code Status Onset Date Resolution Date Notes Provider Name and Address Organization Details Recorded Time Patient status finding [id number] Completed 201201/29/2014 RECORDED 11/10/19 13 1:36PM BY CORINA AUSTIN MA, ANNOTATI ON/STEPHON last MA [facility] 8 15:58:40 Contact dermatit is [id number] Active 2013 Not Available [facility] 0 13:05:47 Dizzines s and giddines s 104439608 Completed 201201/29/2014 RECORDED 08/03/19 13 12:59PM BY CORINA AUSTIN MA, ANNOTATI ON/ADDEN DUM Not Available [facility] 4 14:53:28 Malaise and fatigue 720461615 Completed 201309/02/2017 RECORDED 11/28/19 14 12:57PM BY CORINA AUSTIN MA, OFFICE VISIT Deneen lats, [facility] 8 15:58:51 Adult health examinat ion Completed 201309/02/2017 RECORDED 11/28/19 14 12:58PM BY CORINA AUSTIN MA, OFFICE VISIT Deneen last, [facility] 8 15:58:46 Adult health examinat ion Completed 201201/29/2014 RECORDED 11/10/19 13 1:36PM BY CORINA AUSTIN MA, ANNOTATI ON/ADDEN DUM Deneen last, [facility] 8 15:58:46 Insomnia [id number] Completed 201301/29/2014 RECORDED 11/28/19 14 12:57PM BY CORINA AUSTIN MA, ANNOTATI ON/ADDEN DUM Not Available [facility] 4 14:53:28 Patient status finding [id number] Completed 201309/02/2017 RECORDED 11/28/19 14 12:58PM BY CORINA AUSTIN MA, OFFICE VISIT Deneen last, [facility] 8 15:58:40 Panic disorder without agorapho gurpreet 34186927 Active 2013 Not Available [facility] 0 13:05:47 Administ ration of diphther ia, pertussi s, and tetanus vaccine Completed 201309/02/2017 RECORDED 11/28/19 14 1:36PM BY BELKIS MAHARAJ MD, OFFICE VISIT Deneen last, [facility] 8 15:59:08 Disorder of thyroid gland 71458680 Completed 201311/13/2018 Solange Palomares PA-C [address] [facility] [address], [place], [address] , [facility] 9 11:51:22 Vitamin D deficien cy 83849394 Active 2013 Not Available [facility] 0 13:05:47 Patient status finding [id number] Completed 201202/21/2014 RECORDED 11/10/19 13 1:36PM BY CORINA AUSTIN MA, ANNOTATI ON/ADDEN DUM Deneen last, [facility] 8 15:58:40 Dizzines s and giddines s 987323564 Completed 201202/21/2014 RECORDED 08/03/19 13 12:59PM BY CORINA AUSTIN MA, ANNOTATI ON/ADDEN DUM Not Available [facility] 4 13:03:30 Insomnia [id number] Completed 201302/21/2014 RECORDED 11/28/19 14 12:57PM BY CORINA AUSTIN MA, ANNOTATI ON/ADDEN DUM Not Available [facility] 4 13:03:30 Patient status finding [id number] Completed 201202/22/2014 RECORDED 11/10/19 13 1:36PM BY CORINA AUSTIN MA, ANNOTATI ON/ADDEN DUM Deneen last, [facility] 8 15:58:40 Dizzines s and giddines s 560236277 Completed 201202/22/2014 RECORDED 08/03/19 13 12:59PM BY CORINA AUSTIN MA, ANNOTATI ON/ADDEN DUM Not Available [facility] 4 03:51:49 Insomnia 242453324 Completed 201302/22/2014 RECORDED 11/28/19 14 12:57PM BY CORINA AUSTIN MA, ANNOTATI ON/ADDEN DUM Not Available [facility] 4 03:51:49 Pain of shoulder region 92126752 Completed 09/02/2017 Deneen last [facility] 8 15:59:11 Synoviti s of ankle 25175344388 4103 Active 2017 Not Available [facility] 0 13:05:48 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 219816993 Completed 201711/15/2018 RIGHT ANKLE Removal Reason: not specific Regina Sin null, [facility] 9 13:36:36 Hashimot o thyroidi tis 96261210 Active 2018 Not Available [facility] 0 13:05:47 Overweig ht 055547626 Active 2018 Not Available [facility] 0 13:05:47 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 696893738 Active 2018 Not Available [facility] 0 13:05:47 Pain in left foot 78730365268 9107 Active 2021 Solange Palomares PA-C [address] [address], [place], [address] , [facility] 2 11:02:19 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 424786149 Active 2021 Solange Palomares PA-C [address] [address], [place], [address] , [facility] 2 11:02:25 Mixed hyperlip idemia 963004174 Active 2021 Solange Palomares PA-C [address] [address], [place], [address] , [facility] 2 16:55:14 History of malignan t basal cell neoplasm of skin 879201564 Active 2022 Solange Palomares PA-C [address] [address], [place], [address] , [facility] 3 11:15:22 Metatars algia of left foot 69995253106 9106 Active 2022 Solange Palomares PA-C [address], [place], [address] , [facility] 3 11:32:51 Bunion 516834453 Active 2022 TRENT Head, [facility] 3 16:41:19 Calcanea l spur 01818644 Active 2022 TRENT Head, [facility] 3 16:41:49 Anxiety 47309479 Active 2023 Solange Palomares PA-C [address], [place], [address] , [facility] 4 12:11:53 Prostate specific antigen above referenc e range 745600187 Active 2024 Solange Palomares PA-C [address] [facility] [address], [place], [address] , [facility] 5 14:00:41 Problem Notes None recorded. Procedures Surgical History Date Name Laterality Status Provider Name and Address Organization Details Recorded Time 07/26/19 23 embolization procedure completed Johanna Rogers MA [facility] 11/15/2022 10:39:16 02/24/20 22 excision of basal cell carcinoma completed Solange Palomares PA-C [address], [place], [address], [facility] 11/15/2022 11:15:09 06/22/20 19 Colonoscopy completed Cecelia Posadas [facility] 06/28/2019 13:10:12 03/14/20 18 Dbrdmt ecz/infected skin<10% completed Eli Méndez MA [facility] 11/13/2018 11:22:26 08/28/20 18 Arthroscopic Surgery completed Cecelia Posadas [facility] 11/14/2018 10:48:37 excision of basal cell carcinoma completed Darling Goncalves MA [facility] 06/04/2024 11:11:37 Imaging Results None recorded. Procedure Notes None recorded. Medical Equipment None Reported. Allergies Allergen ID Allergen Name Allergen Category Reaction Reaction Severity Criticality Documentation Date Start Date Code Code System Note Provider Name and Address Organization Details Recorded Time Substance with sulfonami de structure and antibacte rial mechanism of action (substanc e) medicatio n hives Not available Not available 10/04/20142013 15655 8003 SNOMED Ariana TRENT Koroma [facility] 8 11:26:47 Medications Name Sig Start Date [...] 3 TO 4 WEEKS UNTIL FULLY HEALED 11/13 completed Not Available Not Available Not [...] completed Not Available Not Available Not Available rosuvasta tin 5 mg tablet TAKE 1 TABLET BY MOUTH EVERY DAY FOR 30 DAYS active Not Available Not Available No t Available nitrofura ntoin monohydra te/macroc rystals 100 mg capsule TAKE 1 CAPSULES ORAL TWICE A DAY FOR 5 DAYS 11/15 completed Not Available Not Available Not Available Flucelvax Quad 3326-2853 (PF) 60 mcg (15 mcg x 4)/0.5 mL IM syringe 11/13 completed Not Available Not Available Not Available Vitals Date Recorded Body weight Provider Name an d Address Organization Details Last Updated DateTime 10/09/2024 98338.03 g Trice Galicia MA [facility] 10/09/2024 13:26:56 Date Recorded Body height Provider Name an d Address Organization Details Last Updated DateTime 11/13/2024 175.26 cm Liliana Dalton LPN [facility] 11/13/2024 15:21:49 Date Recorded Body height Body mass index (BMI) Body weight Heart rate Oxygen saturation Oxygen saturation in Arterial blood by Pulse oximetry Body temperature Heart rate Systolic blood pressure Diastolic blood pressure Systolic blood pressure Diastolic blood pressure Provider Name and Address Organization Details Last Updated DateTime 3 175.26 cm 25.8 kg/m2 94180.2 3 g 51 /min 98 % 98 % 97.8 [degF] 69 /min 149 mm[Hg] 73 mm[Hg] 138 mm[Hg] 76 mm[Hg] Ariana antunez [facility] 3 09:42:02 Date Recorded Body height Body mass index (BMI) Body weight Heart rate Oxygen saturation Oxygen saturation in Arterial blood by Pulse oximetry Body temperature Systolic blood pressure Diastolic blood pressure Provider Name and Address Organization Details Last Updated DateTime 4 175.26 cm 26.9 kg/m2 13486.2 1 g 69 /min 97 % 97 % 97.6 [degF] 136 mm[Hg] 77 mm[Hg] Darling Goncalves [facility] 4 11:12:45 Social History Question Answer Notes LastModified by Organizat ion Details LastModified Time Tobacco Smoking Status Never [facility]2014 13:58:26 Do You Have An Advance Directive? No Information not available 10/19/2021 Is Blood Transfusion Acceptable In An Emergency? Yes Information not available 11/13/2018 What Is Your Level Of Caffeine Consumption? Moderate 1-2 Daily Information not available 06/04/2024 How Much Tobacco Do You Chew? None Information not available 03/09/2018 What Type Of Diet Are You Following? REGULAR Calorie Reduction Diet Information not available 11/15/2022 Which Illicit Or Recreational Drugs Have You Used? None Information not available 03/09/2018 Live Alone Or With Others? With Others [...] Information not available 03/09/2018 Do You Use Sunscreen Routinely? Yes Information not available 11/13/2018 How Many Years Have You Smoked Tobacco? 0 Information not available 03/09/2018 Sex: Unknown Functional Status Question Answer Note LastModified by Organizat ion Details LastModified Time Do you use any illicit or recreational drugs? No Information not available 11/15/2022 Do you or have you ever used any other forms of tobacco or nicotine? No Information not available 11/15/2022 What is your level of alcohol consumption? Occasional Information not available 12/03/2014 Are you currently employed? Yes Information not available 12/03/2014 Are you able to walk? YESWOREST Information not available 10/19/2021 Are you able to care for yourself? Yes Information not available 03/09/2018 What is your occupation? Other [employer] Information not available 12/09/2024 Do you or have you ever used e-cigarettes or vape? Never used electronic cigarettes Information not available 10/19/2021 What is your exercise level? Moderate 2-3 [...] influenza, unspecified formulation 4 completed Cecelia last [facility] 05/15/2020 13:13:45 Influenza, split virus, quadrivalent, PF 0 completed Cecelia last [facility] 05/15/2020 13:13:45 Influenza, MDCK, quadrivalent, PF 8 completed TRENT Brandon [facility] 10/19/2021 10:22:28 COVID-19, mRNA, LNP-S, PF, 30 mcg/0.3 mL dose 1 completed TRENT Brandno [facility] 10/19/2021 10:22:28 COVID-19, mRNA, LNP-S, PF, 30 mcg/0.3 mL dose 1 completed TRENT Brandon, [facility] 10/19/2021 10:22:28 COVID-19, mRNA, LNP-S, PF, 100 mcg/0.5mL dose or 50 mcg/0.25mL dose 1 completed TRENT Brandon, [facility] 10/19/2021 10:22:28 Influenza, MDCK, quadrivalent, PF 2 completed TRENT Crespo, [facility] 11/15/2022 10:32:03 Influenza, MDCK, quadrivalent, PF 3 completed TRENT Guardado, [facility] 08/16/2023 15:20:50 Tdap 4 completed Cecelia last, [facility] 05/15/2020 13:13:45 Influenza, split virus, quadrivalent, PF 0 completed Not Available [facility] 08/04/2019 02:22:10 Influenza, split virus, trivalent, PF 4 completed Solange Palomares PA-C [address], [address], [facility] 06/04/2024 12:11:51 Past Encounters Encounter ID Performer Location Encounter Start Date Encounter Closed Date Diagnosis/Indication Diagnosis SNOMED-CT Code Diagnosis ICD10 Code Diagnosis Note [id number] autoEComm erce [address] [facility] [place] [address] 09/01/2010 00:00:00 [id number] autoEComm erce [address] [facility] [place] [address] 12/17/2011 00:00:00 [id number] autoEComm erce [address] [facility], [address] [place] [address] 08/03/2012 00:00:00 [id number] autoEComm erce [address] [facility] [place], [place] [address] 11/09/2012 00:00:00 [id number] autoEComm erce [address] [facility] [place], [place] [address] 03/12/2013 00:00:00 [id number] autoEComm erce [address] [facility] [place], [place] [address] 06/05/2013 00:00:00 [id number] autoEComm erce [address] [facility] [place], [place] [address] 11/27/2013 00:00:00 [id number] Belkis galindo MD Main Office [address] [address] [place] [address] 12/03/2014 13:47:56 12/03/2014 14:48:43 Adult health examination 864461946 Pain of oulder region 27368419 Panic diso rder without agoraphobia 01237991 pt uses clonazepam rarely. off of SSRI/ doing well/ not an active issue now. [id number] Belkis galindo MD Main Office [address] [address] [place] [address] 09/03/2016 12:40:15 09/03/2016 14:22:14 Panic disorder 975203345 F41.0 Insomnia 639663016 G47.0 0 [id number] Belkis galindo MD Main Office [address] [address] [place] [address] 09/02/2017 15:14:59 09/02/2017 16:42:51 Disorder of thyroid gland 56755890 E07.9 Fatigue 89314124 R53.83 Hyperlipidemia 05839740 E78.5 [id number] Pedro Oshea MD Main Office [address] [address] [place] [address] 03/09/2018 10:50:39 03/09/2018 11:49:11 Pre-surgery evaluation 142027261 Z01.818 He is low risk and is cleared for his upcoming surgery. 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 Body mass index 25-29 - overweight 651928186 Z68.28 Impaired f asting glycemia 192574100 R73.01 Overweight 359871823 E66 .3 [id number] Eda uriostegui MD Main Office [address] [address] [place] [address] 08/02/2019 11:28:56 08/02/2019 12:31:16 Needs influenza immunization 434168572 Z23 Cellulitis of lower limb 292418958 L03.115 will tx with doxy to cover cellulitis and lyme though tick is large, very unlikley Anxiety 41150710 F41.9 use prn Tick bite 80632486 W57.X XXA no need for testing see above Insect bit e to leg - nonvenomous 525598761 S80.861A [id number] Timmy Holt MD Main Office [address] [address] [place] [address] 10/19/2021 10:01:02 10/19/2021 11:15:34 Adult health examination 142124205 Z00.00 Mixed hyperlipidemia 267 232569 E78.2 rec less red meat and low carb diet -- initially rev. ascvd risk c pt Vitamin D deficiency 347 28913 E55.9 Christiano thyroiditis 21 378124 E06.3 Overweight 055434171 E66 .3 Body mass index 25-29 - overweight 644759713 Z68.27 Impaired f asting glycemia 128494005 R73.01 Benign pro static hyperplasia with outflow obstruction 369312557 N40.1 will get uro eval and check psa Anxiety state 333690873 F41.1 stable lately - mindfulnes s, used to see therapist Skin lesion 93443734 L98 .9 Hepatitis C screening 41 6771267 Z11.59 Varicella vaccination 68 127269 Z23 Pain in left foot 536627 9546 76977 M79.672 periodical ly, fernando from ski boot / sandal - x ~ 3 yrs - will get podiatry eval [id number] Brando Bernabe MD Tele[facility] [address] [facility] [address] [place] [address] 11/20/2021 10:31:13 11/23/2021 08:42:37 Cough 00277952 R05.1 [id number] Timmy Holt MD Main Office [address] [place] [address] 11/15/2022 10:20:53 11/15/2022 11:47:52 Adult health examination 808081828 Z00.00 History of malignant basal cell neoplasm of skin 316476452 Z85.828 s/p resection 8.9.22, cont f/u c ne derm q yr Benign pro static hyperplasia with outflow obstruction 912820976 N40.1 will get uro eval and check psa 5.23 - better p prostate embolizati on c ne vascular, does not wish to go back downstairs to uro - will get eval c another group Nocturia 464256871 R35.1 Mixed hyperlipidemia 267 918840 E78.2 rec less red meat and low carb diet -- initially rev. ascvd risk c pt Vitamin D deficiency 347 38791 E55.9 Fatigue 58223556 R53.83 Impaired f asting glycemia 880822102 R73.01 Metatarsal darrell of left foot 3182673091 30372 M77.42 will get ortho eval [id number] Erendira Tinoco MD Main Office [address] [facility] [address] [place] [address] 11/30/2022 09:24:29 11/30/2022 10:06:00 Metatarsalgia 04695344 M77.41 Suspected Metatarsal giaAdvised warm soaks.NSAI D given, aware not to take with any other otc NSAID. Reminded to get PE labs.Podia try referral given so they can eval for foot mechanics. Will also get xray to ensure no stress fx. Pain in left foot 344269 0325 99260 M79.672 Has been having ongoing issues on left foot requesting xray given that he is having right foot done. [id number] Timmy Holt MD Tele[facility] [address] [facility] [address] [place] [address] 08/16/2023 15:02:42 08/16/2023 16:23:13 Benign prostatic hyperplasia with outflow obstruction 983481401 N40.1 will get uro eval and check [...] plane in past)noctu pal x 2/night lately [id number] Timmy Holt MD Main Office [address] [facility] [address] [place] [address] 06/04/2024 10:54:41 06/04/2024 12:11:20 Adult health examination 368528944 Z00.00 colon utd Needs infl uenza immunization 036888967 Z23 19 YEARS AND OLDER ONLY Benign pro static hyperplasia with outflow obstruction 831397051 N40.1 will get uro eval and check [...] cont f/u c uro Christiano thyroiditis 21 295554 E06.3 History of malignant basal cell neoplasm of skin 210545792 Z85.828 stable - s/p resection 8.9.22, cont f/u c ne derm q yr Mixed hyperlipidemia 267 287481 E78.2 rec less red meat and low carb diet -- initially rev. ascvd risk c pt Body mass index 25-29 - overweight 450908776 E66.3 Z68.26 Impaired f asting glycemia 887965611 R73.01 Anxiety 25579502 F41.9 mild on jes, does a lot of mindfulnes s, does have old rx from [facility] for prn benzo - is running low, rarely uses, requests refill - low abuse potential [id number] Timmy Holt MD [facility] [address] [facility] [address] [place] [address] 10/09/2024 13:13:06 10/09/2024 15:55:39 Prostate specific antigen above reference range 361014204 R97.20 reviewed yesterday' s uro note c pt - plan is to recheck psa in 1 monthcont f/u c uro end of 4. Christiano thyroiditis 21 493261 E06.3 Fatigue 32006873 R53.83 Vitamin D deficiency 347 31082 E55.9 Costal chondritis 373007 04 M94.0 rec warm compress to sternum [id number] Timmy Holt MD [facility] [address] [facility] [address] [place] [address] 11/13/2024 12:55:21 11/13/2024 16:20:45 Benign prostatic hyperplasia with outflow obstruction 758599529 N40.1 will get uro eval and check [...] 11.24 - stable, cont f/u c uro 4.25 - seen by uro last week - psa down to 3.2, uro will order prostate mri Mixed hyperlipidemia 267 525187 E78.2 rec less red meat and low carb diet -- initially rev. ascvd risk c pt 4.25 - John - your LDL (bad chol) has significan tly increased, and when I plugged your #'s into a risk calculator - your ascvd risk is 10.1%, and national guidelines recommend a statin when your risk is > 7.5%. Please let us know if you decide you'd like to begin a statin to reduce your ascvd risk.pt agrees to trial of statin - crestor 5mg - rev risks/bene fits Nocturia 186938062 R35.1 Health Concerns Section Related Observation LastModified by Organization Detai ls LastModified Time None Recorded Concern Status LastModified by Organization Details LastModified Time None Recorded Advance Directives Directive N: Payers Insurance Date Sequence Insurance Name Policy Number Policy Matute Covered Member ID Matute Member ID Guarantor Name 11/21/2024 1 [facility] MOISE [id number] Мария Montague [id number] Мария Montague Notes Date Note Type Note Provider Name and Address Organization Details Recorded Time 3 text/html Musculoskeletal PainReported bypatient.Location:right foot Quality:sharp;dull Severity:improving Duration:present <1 month Context:overuse; running Alleviating factors:rest Associated Symptoms:no fever; no weak limbs; no tingling; no numbness of the legs/feetNotes:Recently started running chief complaint was pain on ball of right foot for ~ 6 days. Has concern wart maybe developing since he had in past. Erendira Tinoco MD [address], [address], [facility] 11/30/2022 10:09:26 4 text/html Video appt.Patient c/o urinary urgency when in high altitudes. He will be traveling via plane in 2 weeks. pt states he only gets urgency (more so inability to urinate so felt the urgency to go -- couldn't urinate on the plane, able to do so in airport after) at high altitudes - pending see urologist in [place] in several weeks, wouldn't give him script w/o being seen has never been on flomax curr - has 2 episodes of nocturia Solange Palomares PA-C [address] [place], [address], [facility] 08/16/2023 16:05:50 4 text/html here for annual pe. Solange Palomares PA-C [address] [address], [place], [address], [facility] 06/04/2024 12:12:18 5 text/html Phone visit-pt having discomfort. psa test was very high. pt prefer a phone call. rev chart - just seen by uro yesterday - rev note in detail c pt also c/o fullness chest, thyroid, esophagus, neck region - concerned about christiano'srequests sed rate to be checked too Solange Palomares PA-C [address] [address], [place], [address], [facility] 10/09/2024 14:19:31 5 text/html HyperlipidemiaReported bypatient.Type of hyperlipidemia:hypercholest erolemia Duration:chronic Control:worsening Compliance:compliant with diet; exercises Complications:no coronary artery disease; no cardiovascular disease Risk Factors:positive family history of premature arteriosclerotic cardiovascular disease TH for f/u visitrev recent uro note and labs in detail c pt Solange Palomares PA-C [address] [address], [place], [address], [facility] 11/13/2024 16:18:54
[2024-12-28] MEDS: gadobutroL 10 ML VIAL IVPUSH (10:14)
== END 2024-12-28 09:02 | disposition home or self-care (01) ==
LOC: HO.MRI 09:01
PROVIDERS: Visit Provider Nurse Practitioner Family
DX: R97.20 Elevated prostate specific antigen [PSA] (principal); Z80.42 Family history of malignant neoplasm of prostate
CPT/HCPCS: 72197; A9585

== ENCOUNTER 2025-02-12 11:46 | Outpatient (AMB) | payer BC, SELFPAY ==
--- NOTE | 2025-02-12 11:48 | A.OFFVIS_ITS ---
Intake Visit Reasons: 3 month f/u with MRI prior(set) Intake Note: Patient is present for 3M F/U WITH MRI PRO[facility] Urology Medication:NONE Antibiotic Allergy:SULFA Blood Thinner:NONE Assistant Secretary Required: No Allergies Sulfa (Sulfonamide Antibiotics) Allergy (Verified 02/12/25 13:37) Hives Medication List - Last Reconciled 02/12/25 by JASON Azevedo No Known Home Meds HPI Comments Details: John is a very pleasant 59-year-old male patient of Dr. Palomares. He has a past medical history of history of basal cell carcinoma, contact dermatitis, BPH without outflow obstruction, hyperlipidemia, vitamin-D deficiency, and Suad's thyroiditis. He is being followed up on today via video telehealth for his ongoing lower urinary tract symptoms and labile PSA. Recent prostate MRI results were reviewed with the patient today. 01/09 calculated prostate volume of 47 mL. No discrete focus of abnormal signal i ntensity identified to suggest clinically significant prostate carcinoma. PI- RADS 1. PSAs are as follows: 12/06 2.6, 10/08 3.2, 02/07 3.6, 04/10 2.7, 10/09 4.0, 10/09 3.4 Previous workup has included a retroperitoneal ultrasound 04/10 noting bilateral kidneys with no calculi, lesions, and or hydronephrosis. The bladder is well distended and normal. Bilateral ureteral jets are demonstrated. Pre void bladder volume is approximately 415 mL. Postvoid bladder volume is approximately 160 mL. Prostate is upper limits of normal measuring 28 mL. We discussed variability in PSA and potential causes for this variability/elevation. Patient with a previous urological history with [facility] and underwent urodynamics 01/06, cystoscopy 01/06 that noted no strictures, nonobstructing prostate, nonobstructing bladder neck, and mild hyperplasia. It appears patient was to undergo prostate biopsy procedure however this was never completed. He discusses having ongoing intermittent issues with nocturia, weak urinary stream, and urinary pressure however feels symptoms have been manageable independently. He does have a history of some sort of surgical procedure regarding his prostate that sounds like prostate embolization. 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 He currently denies any bothersome urinary issues or concerns. Discussed surveillance monitoring of PSA given family history of prostate cancer and labile/elevated PSA. We discussed obtaining MRI of the prostate for further assessment evaluation. He otherwise offers no other issues or concerns at this time. [facility] Medical History Metatarsalgia of left foot Pain in left foot History of basal cell carcinoma (BCC) Villonodular synovitis of ankle and foot Contact dermatitis Benign prostatic hyperplasia Panic disorder with agoraphobia Overweight Mixed hyperlipidemia Vitamin D deficiency Suad's thyroiditis Surgical History H/O transurethral resection of prostate History of basal cell carcinoma excision Review of Systems Const All systems reviewed & are unremarkable except as noted in HPI and below Reports no additional complaints Eyes Reports no additional complaints ENT Reports no additional complaints Card Reports as per HPI Resp Reports no additional complaints GI Reports no additional complaints Reports as per HPI Musc Reports as per HPI Skin/Breast Reports as per HPI Neuro Reports no additional complaints Psych Reports no additional complaints Endo Reports as per HPI Jalil/Lymph Reports no additional complaints Aller/Immun Reports no additional complaints Physical Exam Const General: cooperative, healthy appearing, comfortable, no acute distress, well developed, alert and awake Orientation/consciousness: patient oriented x3 Resp Effort & Inspection: normal respiratory effort and able to speak in complete sentences Neuro General: patient oriented x3 Psych Speech and movement: Clear speech present Attitude: cooperative Insight: Fair insight present (Psych) Judgement: Fair judgement present (Psych) Telehealth Telehealth Telehealth Platform: [facility] Location of provider rendering services: practice address Location of patient: address on file Patient Identification confirmed using: Name, : Yes Telehealth method: video Patient verbally consented to treatment: Yes Patient verbally consented to billing insurance company: Yes Patient informed of any privacy concerns related to visit: Yes Minutes spent on Phone/Video with Pt.: 15 Results Reviewed Results Reviewed: Date of Service: 12/28/24 Procedure(s): MR Prostate wo/w con FINDINGS: Prostate size: 4.3 x 5.0 x 4.2 cm. Calculated prostate volume is 47.0 mL. Hemorrhage: None. Transitional Zone: There is moderate heterogeneous nodular hypertrophy of the transitional zone. Peripheral Zone: No discrete focus of abnormal signal intensity is identified. There are no foci of restricted diffusion. Seminal Vesicles/Ejaculatory Ducts: Symmetric and normal in signal and caliber. Pelvic Lymph Nodes: No obturator or internal iliac lymph nodes meeting size criteria for adenopathy. Marrow Signal: Normal marrow signal and enhancement without focal lesion identified. IMPRESSION: No discrete focus of abnormal signal intensity is identified to suggest clinically significant prostate carcinoma. PI-RADS 1: Very low (clinically significant cancer is highly unlikely to be present) Assessment & Plan Assessment & Plan (1) Elevated PSA: Code(s): R97.20 - Elevated prostate specific antigen [PSA] Category: Medical (2) Family history of prostate cancer: Code(s): Z80.42 - Family history of malignant neoplasm of prostate Category: Medical (3) Lower urinary tract symptoms: Code(s): R39.9 - Unspecified symptoms and signs involving the genitourinary system Category: Medical (4) Weak urinary stream: Code(s): R39.12 - Poor urinary stream Category: Medical (5) Nocturia: Code(s): R35.1 - Nocturia Category: Medical Plan Recent prostate MRI results reviewed with the patient today; as noted above; will mail patient's results as requested We did discussed potential causes of variable PSA as well as further treatment o ptions and risks and benefits of these treatment options. We will continue with surveillance monitoring at this time. We discussed close surveillance monitoring guarding labile PSA and family histo ry of prostate cancer. Patient reports to be managing lower urinary tract symptoms well independently. All questions were answered. Follow-up in 4-6 months with PSA and PVR; or sooner with any issues, concerns, and or questions. Orders: Orders PSA,Total (Free>4and<10) 4 Months R97.20 - Elevated prostate specific antigen [PSA] Patient Instructions: The patient had an opportunity to ask questions regarding the treatment plan. All questions were answered. Physical exam, labs, and imaging were discussed and reviewed in detail. As well as risks, benefits, and discussion of treatment choices. No major barriers to understanding were identified. The patient expressed understanding and agreement with the above treatment plan. The patient was made aware they should contact our office by phone for worsening of their current condition, the appearance of new symptoms, or with any questions or concerns. Compliance is encouraged with any medications and follow up testing that is ordered. It is a privilege to be allowed the opportunity to participate in? your urological care.? Again, if you have any questions or concerns If you have any questions or concerns please do not hesitate to contact me. The office is [phone]. This note is constructed using voice recognition software. While every effort has been made to ensure accuracy rail car repairer errors may have been included. Yours sincerely, JASON Azevedo Coding Level of Care Code Tele Est Pt Level 3 (45830) Diagnoses Elevated PSA R97.20 Family history of prostate cancer Z80.42 Lower urinary tract symptoms R39.9 Weak urinary stream R39.12 Nocturia R35.1
--- OUTSIDE RECORDS SUMMARY | 2025-02-12 12:49 | XMS_ITS | Patient Health Record ---
Author Organization [facility] Address [address] [place] [address] Care Team Providers Care Retail Marketing Specialist Name Role Phone Tony Palomares PA-C Primary Care Provider Unava ilYuan Medina Unavailable [phone] Allergies Allergen (clinical drug ingredient) Drug/Non Drug Allergy documented on EMR Reaction Allergy Type Onset Date Status Substance with sulfonamide structure and antibacterial mechanism of action (substance) Sulfa Antibiotics rash, hives, swelling Drug Allergy Active Reason For Referral No Information Medications Medication SIG (Take, Route, Fr equency, Duration) Notes Start Date End Date Status Flucelvax inject 0.5 millilite r intramuscularly Intramuscular; Duration: 1 Not-T aking Social History Tobacco use other than smoking: Question Answer Notes Are you an other tobacco user? No Plan Of Treatment Pending Test Test Name Order Date [id number] Destruction, 1-14 12/05/2014 [id number] Biopsy 0.5cm 10/17/2014 Insurance Providers Payer Name Payer Address Payer Phone Subscriber Number Group Number Insured Name Patient Relationship to Insured Coverage Start Date Coverage End Date [facility] [address] [place] [address] [id number] Мария Montague Spouse - patient is the spouse of the insured Medical (General) History Medical History History ICD Code Chicken pox Surgical History Surgery Date(Month/Year) ankle surgery 2012 PAE 07/2022
--- OUTSIDE RECORDS SUMMARY | 2025-02-12 12:49 | XMS_ITS ---
Author Name [facility] Organization Unknown Allergies Allergen Reaction Severity Comment Documented Date Source Statu s .SULFA ENS_PODCRCT Problems Problem Status Onset Date Problem Type Date of Resolution Source Neuroma, left lower limb active 2024-10-02 EncounterDiagnosisAct ENS_PO DCRCT Metatarsalgia active 2023-12-06 ProblemAct ENS_ PODCRCT Pain in left toe(s) active 2023-10-04 ProblemAct ENS_PODCRCT Plantar Flexed Metatarsal - Metatarsalgia, LEFT foot active 2024-10-02 EncounterDiagnosisAct ENS_PO DCRCT [id number] - Tailor's bunion active 2024-10-02 EncounterDiagnosisAct ENS_PO DCRCT Encounters Encounter Type Encounter Reason Primary Diagnosis Location Date Ambulatory [facility] [place] 11/17/2022 Ambulatory [facility] [place] 11/17/2022 Ambulatory [facility] [place] 11/17/2022 Care Team Organization Name Specialty Phone Email Start Date End Da [facility] 11/10/2023 [facility] 11/10/2023
--- OUTSIDE RECORDS SUMMARY | 2025-02-12 12:49 | XMS_ITS | Clinical Summary ---
Author Organization [facility] Address [address] [facility] [address] [place] [id number] Phone Care Team Providers Care Minister Of Religion Name Role Phone Tony Palomares Primary Care Provider [phone] Allergies Active Allergy Reactions Criticality Noted Date Comments Sulfa (Sulfonamide Antibiotics) 09/15 Medications No known medications Social History Tobacco Use Types Packs/Day Years Used Date Smoking Tobacco: Never Assessed Education Answer Date Recorded Are you interested in more education? Not on mckenna e 09/16/2023 Are you concerned about learning? Not on file 09/16/2023 No 09/16/2023 No 09/16/2023 Digital Access Answer Date Recorded No 09/16/2023 No 09/16/2023 Reliable internet access at home? Not on file 09/16/2023 Device with a working camera? Not on file Sex and Gender Information Value Date Recorded Sex Assigned at Male 09/16/2023 11:33 AM EST Legal Sex Male 11:24 AM EST Gender Identity Male 09/16/2023 11:33 AM EST Sexual Orientation Straight 09/16/2023 11 :33 AM EST Plan of Treatment Health Maintenance Due Date Last Done Comments LIPID PANEL 1967 DEPRESSION SCREENING 1979 SMOKING Hx and SMOKELESS TOBACCO SCREENING 1980 HEPATITIS C SCREENING 1985 HIV ONE-TIME SCREENING (18-6 5 YEARS) 1985 COLOGUARD 2012 COLONOSCOPY 2012 COLORECTAL CANCER SCREENING 2012 FIT TEST 2012 FOBT 2012 SIGMOIDOSCOPY 2012 VIRTUAL COLONOSCOPY 2012 PNEUMOCOCCAL VACCINES (50+ years) (1 of 1 - PCV) 2017 ZOSTER VACCINES (1 of 2) 2017 Adult Td,Tdap Booster 11/28/2023 11/27/2013 COVID-19 VACCINE (4 - 2023-2 5 season) 2024 06/21/2021, 09/02/2020, 08/12/2020 HEPATITIS A VACCINES Aged Out No long er eligible based on patient's age to complete this topic HIB VACCINES Aged Out No longer eligi ble based on patient's age to complete this topic MENINGOCOCCAL VACCINES (ACWY) Aged Out No longer eligible based on patient's age to complete this topic MENINGOCOCCAL VACCINES (B) Aged Out N o longer eligible based on patient's age to complete this topic Medical Devices Not on file Insurance [facility] [place] [address] [place] [address] [facility] Care Teams Minister Of Religion Relationship Specialty Start Date End Date Tony Palomares PA [address] [phone] PCP - General Physician Rough Patcher 09/16/23 Additional Source Comments The information contained in this document represents components of the legal health record. It is not the complete legal health record.[facility]
--- OUTSIDE RECORDS SUMMARY | 2025-02-12 12:49 | XMS_ITS | Data Portability ---
Author Organization [facility], Main Office Address [address] [facility] [address] [place] [id number] Care Team Providers Care Wine Pasteurizer Name Role Phone SOLANGE JOSUE Primary Care Provider [phone] FLORIDA LAGUNAS Orthopedic Surgeon [phone] AWA WILSON Rn New Graduate ROSALINDA POND Urologist ARMEN SAMAYOA Survey Coordinator Assessment Encounter Date Assessment Date Assessment LastModified by Organization Details LastModified Time 08/16/2023 08/16/2023 This service was provided using telemedicine. Patient consented to video & audio visit Patient was located in the [facility]. Provider was located in the office. No other persons participated in the telemedicine visit except for the patient unless otherwise indicated here. Total time of visit was 18 minutes. pmadden Not available 08/16/2023 16:04:17 10/09/2024 10/09/2024 This service was provided using telemedicine. Patient consented to telephone visit Patient was located in the [facility]. Provider was located in the office. No other persons participated in the telemedicine visit except for the patient unless otherwise indicated here. Total time of visit was 21 minutes. pmadden Not available 10/09/2024 14:17:33 11/13/2024 11/13/2024 This service was provided using telemedicine. Patient consented to video & audio visit Patient was located at home in the [facility]. Provider was located in the office. No other persons participated in the telemedicine visit except for the patient unless otherwise indicated here. Total time of visit was 30 minutes. pmadden Not available 11/13/2024 16:15:41 Plan of Treatment Reminders Order Date Submit Date Provider Last Modified By Organization Details Last Modified Time Details Appointments None record ed. Lab lipid panel, serum 2024 VIBHA [facility] (Centralized Electronic Ordering - All Locations), Patient Can Go To The Location Of Their Choice, 03:03:30 CMP, serum or plasma 2024 VIBHA [facility] (Centralized Electronic Ordering - All Locations), Patient Can Go To The Location Of Their Choice, 03:03:30 CK (creat ine kinase ), total, serum 2024 VIBHA [facility] (Centralized Electronic Ordering - All Locations), Patient Can Go To The Location Of Their Choice, 03:03:30 PSA, total, serum or plasma 2024 VIBHA [facility] (Centralized Electronic Ordering - All Locations), Patient Can Go To The Location Of Their Choice, 03:03:30 PSA, total, serum or plasma 2024 VIBHA [...] serum 2024 VIBHA [facility], [address], [place], [address], 06:13:53 CBC w/ auto diff 2024 VIBHA [...] Of Their Choice, 06:13:57 Referral nutrit ionist /leliai akila referr al 2023 024 [email or web address] Not available 4 12:28:36 podiat rist referr al 2022 023 [email or web address] Not available 3 16:28:40 Procedures None record ed. Surgeries None record ed. Imaging XR, foot, 3 or [facility], Internal Use Only DO Not Attach Compendium DO Not Attach Compendium, Do Not Delete/merge, [id number] 3 14:04:03 XR, foot, 3 or more view 2022 023 [email or web address] In-Office Order, Internal Use Only DO Not Attach Compendium DO Not Attach Compendium, Do Not Delete/merge, [id number] 3 14:04:04 Medication Orders rosuva statin 5 mg tablet 2024 025 [facility] #1972, [address] [place] [address], [id number], 5 16:18:02 loraze michael 0.5 mg tablet 2023 024 [facility]1972, [address] [place] [address], [id number], 4 12:12:00 tamsul osin 0.4 mg capsul e 2023 024 [email or web address] [facility] #1972, [address] [place] [address], [id number], 4 11:09:06 Mobic 15 mg tablet 2022 023 [email or web address] [facility] #1972, [address] [place] [address], [id number], 4 15:21:04 Patient Targets Encounter Date Encounter Id Patient Goals Patient Target Last Modified By Organization Details Last Modified Time 06/04/2024 [id number] meterman goal of Excess Body Weight Loss % 5 Not available Not available Not available 06/04/2024 [id number] Pt advised and agrees to work on self-monitoring behaviors; begin an appropriate diet for weight loss (such as a low carbohydrate diet), to do moderate exercise (such as walking) for approximately 150 minutes per week; and to identify desirable and timely rewards that will reinforce achievement of specific weight loss goals. pmadden Not available 06/04/2024 11:46:42 11/13/2024 [id number] Ongoing of LDL Direct <100 Not available Not available Not available Ongoing of LDL Direct yearly Not available Not available Not available 11/13/2024 [id number] Pt agrees to follow low fat diet, [...] By Organization Details Last Modified Time 11/30/2022 [id number] metatarsalgia: care instructions ckokar Not available 11/30/2022 10:02:46 08/16/2023 [id number] benign prostatic hyperplasia: care instructions pmadden Not available 08/16/2023 16:03:32 Follow up as needed. pmadden Not available 08/16/2023 16:03:14 06/04/2024 [id number] Well Visit 50 to 65: Care Instructions pmadden Not available 06/04/2024 12:11:47 When You Want to Lose Weight: Care Instructions pmadden Not available 06/04/2024 12:11:48 Nutrition Referral and Weight Management Follow-up Information pmadden Not available 06/04/2024 12:11:48 Discussed risks for driving while using this medication. pmadden Not available 06/04/2024 11:46:10 10/09/2024 [id number] costochondritis: care instructions pmadden Not available 10/09/2024 14:18:33 encouraged pt to check outstanding labs as directed pmadden Not available 10/09/2024 14:17:43 Follow up if no improvement or if symptoms worsen. 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 Not Available [facility] ([facility]) [address] [facility], [place], [address], 10/20/2024 06:13:52 10/20/1910/20/2024 VITAM IN D, 25-HY DROXY vitamin D, [...] Mary brady [place]: [facility] Press . 2. Jo Ann KWAN, Becky levin [place], Vince off-F errar i GOMEZ, et al. Evalu ation , treat ment, and preve ntion of vitam in D defic iency : an Endoc rine Socie ty clini garrison pract ice guide line. JCEM. 2010; 96(7) :1911 -30. Not Available [facility] ([facility]) [address] [facility], [place], [address], 10/20/2024 06:13:52 10/20/19 25 10/19/2024 SEDIM ENTAT ION RATE- WESTE RGREN sedimentatio n rate-westerg talita 2 mm/HR 0-30 normal Not Available [facility] ([facility]) [address] [place], [address], 10/20/2024 06:13:53 10/20/19 25 10/19/2024 TRIIO DOTHY JHOAN E (T3), FREE triiodothyro nine (T3), free 2.8 pg/mL 2.0-4. 4 normal Not Available [facility] ([facility]) [address] [facility], [place], [address], 10/20/2024 06:13:54 10/20/19 25 10/19/2024 CBC WITH DIFFE RENTI AL/PL ATELE T WBC 5.5 x10e3 /uL 3.4-10 .8 normal Not Available [facility] ([facility]) [address] [place], [address], 10/20/2024 06:13:56 10/20/19 25 10/19/2024 CBC WITH DIFFE RENTI AL/PL ATELE T RBC 4.99 x10e6 /uL 4.14-5 .80 normal Not Available [facility] ([facility]) [address] [place], [address], 10/20/2024 06:13:56 10/20/19 25 10/19/2024 CBC WITH DIFFE RENTI AL/PL ATELE T hemoglobin 16.2 g/dL 13.0-1 7.7 normal Not Available [facility] ([facility]) [address] [facility], [place], [address], 10/20/2024 06:13:56 10/20/19 25 10/19/2024 CBC WITH DIFFE RENTI AL/PL ATELE T hematocrit 46.6 % 37.5-5 1.0 normal Not Available [facility] ([facility]) [address] [facility], [place], [address], 10/20/2024 06:13:56 10/20/19 25 10/19/2024 CBC WITH DIFFE RENTI AL/PL ATELE T MCV 93 fL 79-97 normal Not Available [facility] ([facility]) [address] [facility], [place], [address], 10/20/2024 06:13:56 10/20/19 25 10/19/2024 CBC WITH DIFFE RENTI AL/PL ATELE T MCH 32.5 pg 26.6-3 3.0 normal Not Available [facility] ([facility]) [address] [place], [address], 10/20/2024 06:13:56 10/20/19 25 10/19/2024 CBC WITH DIFFE RENTI AL/PL ATELE T MCHC 34.8 g/dL 31.5-3 5.7 normal Not Available [facility] ([facility]) [address] [place], [address], 10/20/2024 06:13:56 10/20/19 25 10/19/2024 CBC WITH DIFFE RENTI AL/PL ATELE T RDW 12.9 % 11.6-1 5.4 Not Available [facility] ([facility]) [address] [place], [address], 10/20/2024 06:13:56 10/20/19 25 10/19/2024 CBC WITH DIFFE RENTI AL/PL ATELE T platelets 240 x10e3 /uL 150-45 0 normal Not Available [facility] ([facility]) [address] [facility], [place], [address], 10/20/2024 06:13:56 10/20/19 25 10/19/2024 CBC WITH DIFFE RENTI AL/PL ATELE T neutrophils 44 % not estab. normal Not Available [facility] ([facility]) [address] [facility], [place], [address], 10/20/2024 06:13:56 10/20/19 25 10/19/2024 CBC WITH DIFFE RENTI AL/PL ATELE T lymphs 46 % not estab. normal Not Available [facility] ([facility]) [address] [facility], [place], [address], 10/20/2024 06:13:56 10/20/19 25 10/19/2024 CBC WITH DIFFE RENTI AL/PL ATELE T monocytes 8 % not estab. normal Not Available [facility] ([facility]) [address] [facility], [place], [address], 10/20/2024 06:13:56 10/20/19 25 10/19/2024 CBC WITH DIFFE RENTI AL/PL ATELE T eos 2 % not estab. normal Not Available [facility] ([facility]) [address] [facility], [place], [address], 10/20/2024 06:13:56 10/20/19 25 10/19/2024 CBC WITH DIFFE RENTI AL/PL ATELE T basos 0 % not estab. 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 0 normal Not Available [facility] ([facility]) [address] [facility], [place], [address], 10/20/2024 06:13:56 10/20/19 25 10/19/2024 CBC WITH DIFFE RENTI AL/PL ATELE T lymphs (absolute) 2.6 x10e3 /uL 0.7-3. 1 normal Not Available [facility] ([facility]) [address] [place], [address], 10/20/2024 06:13:56 10/20/19 25 10/19/2024 CBC WITH DIFFE RENTI AL/PL ATELE T monocytes(ab solute) 0.5 x10e3 /uL 0.1-0. 9 normal Not Available [facility] ([facility]) [address] [facility], [place], [address], 10/20/2024 06:13:56 10/20/19 25 10/19/2024 CBC WITH DIFFE RENTI AL/PL ATELE T eos (absolute) 0.1 x10e3 /uL 0.0-0. 4 normal Not Available [facility] ([facility]) [address] [place], [address], 10/20/2024 06:13:56 10/20/19 25 10/19/2024 CBC WITH DIFFE RENTI AL/PL ATELE T baso (absolute) 0.0 x10e3 /uL 0.0-0. 2 normal Not Available [facility] ([facility]) [address] [place], [address], 10/20/2024 06:13:56 10/20/19 25 10/19/2024 CBC WITH DIFFE RENTI AL/PL ATELE T immature granulocytes 0 % not estab. Not Available [facility] ([facility]) [address] [facility], [place], [address], 10/20/2024 06:13:56 10/20/19 25 10/19/2024 CBC WITH DIFFE RENTI AL/PL ATELE T immature grans (abs) 0.0 x10e3 /uL 0.0-0. 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 METAB OLIC PANEL (14) glucose 98 mg/dL 70-99 normal Not Available [facility] ([facility]) [address] [facility], [place], [address], 10/20/2024 06:13:56 10/20/19 25 10/19/2024 COMP. METAB OLIC PANEL (14) BUN 16 mg/dL 6-24 normal Not Available [facility] ([facility]) [address] [facility], [place], [address], 10/20/2024 06:13:56 10/20/19 25 10/19/2024 COMP. METAB OLIC PANEL (14) creatinine 1.25 mg/dL 0.76-1 .27 normal Not Available [facility] ([facility]) [address] [facility], [place], [address], 10/20/2024 06:13:56 10/20/19 25 10/19/2024 COMP. METAB OLIC PANEL (14) eGFR 67 mL/mi n/1.7 3 >59 normal Not Available [facility] ([facility]) [address] [facility], [place], [address], 10/20/2024 06:13:56 10/20/19 25 10/19/2024 COMP. METAB OLIC PANEL (14) BUN/creatini ne ratio 13 9-20 normal Not Available [facility] ([facility]) [address] [facility], [place], [address], 10/20/2024 06:13:56 10/20/19 25 10/19/2024 COMP. METAB OLIC PANEL (14) sodium 141 mmol/ L 134-14 4 normal Not Available [facility] ([facility]) [address] [facility], [place], [address], 10/20/2024 06:13:56 10/20/19 25 10/19/2024 COMP. METAB OLIC PANEL (14) potassium 4.5 mmol/ L 3.5-5. 2 normal Not Available [facility] ([facility]) [address] [place], [address], 10/20/2024 06:13:56 10/20/19 25 10/19/2024 COMP. METAB OLIC PANEL (14) chloride 107 mmol/ L 96-106 above high normal Not Available [facility] ([facility]) [address] [place], [address], 10/20/2024 06:13:56 10/20/19 25 10/19/2024 COMP. METAB OLIC PANEL (14) carbon dioxide, total 23 mmol/ L 20-29 normal Not Available [facility] ([facility]) [address] [facility], [place], [address], 10/20/2024 06:13:56 10/20/19 25 10/19/2024 COMP. METAB OLIC PANEL (14) calcium 9.7 mg/dL 8.7-10 .2 normal Not Available [facility] ([facility]) [address] [place], [address], 10/20/2024 06:13:56 10/20/19 25 10/19/2024 COMP. METAB OLIC PANEL (14) protein, total 7.3 g/dL 6.0-8. 5 normal Not Available [facility] ([facility]) [address] [place], [address], 10/20/2024 06:13:56 10/20/19 25 10/19/2024 COMP. METAB OLIC PANEL (14) albumin 4.7 g/dL 3.8-4. 9 normal Not Available [facility] ([facility]) [address] [place], [address], 10/20/2024 06:13:56 10/20/19 25 10/19/2024 COMP. METAB OLIC PANEL (14) globulin, total 2.6 g/dL 1.5-4. 5 Not Available [facility] ([facility]) [address] [place], [address], 10/20/2024 06:13:56 10/20/19 25 10/19/2024 COMP. METAB OLIC PANEL (14) bilirubin, total 0.8 mg/dL 0.0-1. 2 normal Not Available [facility] ([facility]) [address] [place], [address], 10/20/2024 06:13:56 10/20/19 25 10/19/2024 COMP. METAB OLIC PANEL (14) alkaline phosphatase 71 IU/L 44-121 normal Not Available [facility] ([facility]) [address] [place], [address], 10/20/2024 06:13:56 10/20/19 25 10/19/2024 COMP. METAB OLIC PANEL (14) AST (SGOT) 27 IU/L 0-40 normal Not Available [facility] ([facility]) [address] [facility] [place], [address], 10/20/2024 06:13:56 10/20/19 25 10/19/2024 COMP. METAB OLIC PANEL (14) ALT (SGPT) 25 IU/L 0-44 normal Not Available [facility] ([facility]) [address] [facility] [place], [address], 10/20/2024 06:13:56 10/20/19 25 10/19/2024 LIPID PANEL cholesterol, total 250 mg/dL 100-19 9 above high normal Not Available [facility] ([facility]) [address] [facility] [place], [address], 10/20/2024 06:13:56 10/20/19 25 10/19/2024 LIPID PANEL triglyceride s 124 mg/dL 0-149 normal Not Available [facility] ([facility]) [address] [place], [address], 10/20/2024 06:13:56 10/20/19 25 10/19/2024 LIPID PANEL HDL cholesterol 45 mg/dL >39 normal Not Available [facility] ([facility]) [address] [facility] [place], [address], 10/20/2024 06:13:56 10/20/19 25 10/19/2024 LIPID PANEL VLDL cholesterol garrison 22 mg/dL 5-40 Not Available [facility] ([facility]) [address] [place], [address], 10/20/2024 06:13:56 10/20/19 25 10/19/2024 LIPID PANEL LDL chol calc ([facility]) 183 mg/dL 0-99 above high normal Not Available [facility] ([facility]) [address] [place], [address], 10/20/2024 06:13:56 10/20/19 25 10/19/2024 LIPID PANEL LDL calc 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 6 normal Predi abete s: 5.7 - 6.4 Diabe mykel: >6.4 Glyce wesly contr ol for adult s with diabe mykel: <7.0 Not Available [facility] ([facility]) [address] [facility], [place], [address], 10/20/2024 06:13:57 10/20/19 25 10/19/2024 TSH RFX ON ABNOR MAL TO FREE T4 TSH 1.830 uIU/m L 0.450- 4.500 normal Not Available [facility] ([facility]) [address] [facility], [place], [address], 10/20/2024 06:13:57 01/20/20 23 01/14/2023 XR, foot, 3 or more view No observ ation record ed. [email or web address] [address], [address], 02/02/2023 11:02:42 01/20/20 23 01/14/2023 XR, foot, 3 or more view No observ ation record ed. [email or web address] [address], [address], 01/19/2023 15:37:41 01/20/20 23 01/14/2023 XR, foot, 3 or more view No observ ation record ed. [email or web address] [place] [address], [address], 01/19/2023 15:37:41 01/20/20 23 01/14/2023 XR, foot, 3 or more view No observ ation record ed. [email or web address] [place] [address] [place] [address] [place] [address], [address], 01/19/2023 15:37:42 02/03/20 23 01/14/2023 XR, foot, 3 or more view No observ ation record ed. [email or web address] [facility] [place] [address], [address], 03/02/2023 16:42:49 02/03/20 23 01/14/2023 XR, foot, 3 or more view No observ ation record ed. [facility] [place] [address], [address], 02/02/2023 23:41:13 02/03/20 23 01/14/2023 XR, foot, 3 or more view No observ ation record ed. [facility] [place] [address], [address], 02/02/2023 23:39:24 02/03/20 23 01/14/2023 XR, foot, 3 or more view No observ ation record ed. [facility] [place] [address], [address], 02/02/2023 23:40:49 04/04/20 24 03/27/2024 US, duple x, retro perit oneum , compl ete No observ ation record ed. [facility] (Medical Records) [address] [place], [address], 06/04/2024 11:43:08 Result Notes None recorded. Problems Name Problem SNOMED Code Status Onset Date Resolution Date Notes Provider Name and Address Organization Details Recorded Time Pain of shoulder region 84876347 Completed 09/02/2017 Deneen last [place] [facility] 8 15:59:11 Dizzines s and giddines s 757181324 Completed 201201/29/2014 RECORDED 08/03/19 13 12:59PM BY CORINA AUSTIN MA, ANNOTATI ON/ADDEN DUM Not Available [facility] 4 14:53:28 Dizzines s and giddines s 299947255 Completed 201202/21/2014 RECORDED 08/03/19 13 12:59PM BY CORINA AUSTIN MA, ANNOTATI ON/ADDEN DUM Not Available [facility] 4 13:03:30 Dizzines s and giddines s 128083457 Completed 201202/22/2014 RECORDED 08/03/19 13 12:59PM BY CORINA AUSTIN MA, ANNOTATI ON/ADDEN DUM Not Available [facility] 4 03:51:49 Patient status finding [id number] Completed 201201/29/2014 RECORDED 11/10/19 13 1:36PM BY CORINA AUSTIN MA, ANNOTATI ON/ADDEN DUM Deneen last [facility] 8 15:58:40 Adult health examinat ion Completed 201201/29/2014 RECORDED 11/10/19 13 1:36PM BY CORINA AUSTIN MA, ANNOTATI ON/ADDEN DUM Deneen last [facility] 8 15:58:46 Patient status finding [id number] Completed 201202/21/2014 RECORDED 11/10/19 13 1:36PM BY CORINA AUSTIN MA, ANNOTATI ON/ADDEN DUM Deneen last [facility] 8 15:58:40 Patient status finding [id number] Completed 201202/22/2014 RECORDED 11/10/19 13 1:36PM BY CORINA AUSTIN MA, ANNOTATI ON/ADDEN DUM Deneen last [facility] 8 15:58:40 Contact dermatit is 73964948 Active 2013 Not Available [facility] 0 13:05:47 Malaise and fatigue 716818125 Completed 201309/02/2017 RECORDED 11/28/19 14 12:57PM BY CORINA AUSTIN MA, OFFICE VISIT Deneen last, [facility] 8 15:58:51 Adult health examinat ion Completed 201309/02/2017 RECORDED 11/28/19 14 12:58PM BY CORINA AUSTIN MA, OFFICE VISIT Deneen last, [facility] 8 15:58:46 Insomnia 541472326 Completed 201301/29/2014 RECORDED 11/28/19 14 12:57PM BY CORINA AUSTIN MA, ANNOTATI ON/ADDEN DUM Not Available [facility] 4 14:53:28 Patient status finding [id number] Completed 201309/02/2017 RECORDED 11/28/19 14 12:58PM BY CORINA AUSTIN MA, OFFICE VISIT Deneen last, [facility] 8 15:58:40 Panic disorder without agorapho gurpreet 43808731 Active 2013 Not Available [facility] 0 13:05:47 Administ ration of diphther ia, pertussi s, and tetanus vaccine Completed 201309/02/2017 RECORDED 11/28/19 14 1:36PM BY BELKIS MAHARAJ MD, OFFICE VISIT Deneen last, [facility] 8 15:59:08 Disorder of thyroid gland 82091231 Completed 201311/13/2018 Solange Josue PA-C [address] [facility] [address], [place], [address] , [facility] 9 11:51:22 Vitamin D deficien cy 95476010 Active 2013 Not Available [facility] 0 13:05:47 Insomnia 194459083 Completed 201302/21/2014 RECORDED 11/28/19 14 12:57PM BY CORINA AUSTIN MA, ANNOTATI ON/ADDEN DUM Not Available [facility] 4 13:03:30 Insomnia 046834794 Completed 201302/22/2014 RECORDED 11/28/19 14 12:57PM BY CORINA AUSTIN MA, RADHA ON/ADDALINA DUM Not Available [facility] 4 03:51:49 Synoviti s of ankle 36832083115 4103 Active 2017 Not Available [facility] 0 13:05:48 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 731665332 Completed 201711/15/2018 RIGHT ANKLE Removal Reason: not specific Reginajem last, [facility] 9 13:36:36 Hashimot o thyroidi tis 23199966 Active 2018 Not Available [facility] 0 13:05:47 Overweig ht 075218350 Active 2018 Not Available [facility] 0 13:05:47 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 738839963 Active 2018 Not Available [facility] 0 13:05:47 Pain in left foot 09822231889 9107 Active 2021 Solange Josue PA-C [address] [address], [place], [address] , [facility] 2 11:02:19 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 878835234 Active 2021 Solange Josue PA-C [address] [address], [place], [address] , [facility] [facility] 2 11:02:25 Mixed hyperlip idemia 953203289 Active 2021 Solange Josue PA-C [address] [address], [place], [address] , [facility] 2 16:55:14 History of malignan t basal cell neoplasm of skin 536817810 Active 2022 Solange Josue PA-C [address] [address], [place], [address] , [facility] 3 11:15:22 Metatars algia of left foot 15811218631 9106 Active 2022 Solange Josue PA-C [address], [place], [address] , [facility] 3 11:32:51 Bunion 834453207 Active 2022 [place], [facility] 3 16:41:19 Calcanea l spur 11146186 Active 2022 [place], [facility] 3 16:41:49 Anxiety 42814406 Active 2023 Solange Josue PA-C [address], [place], [address] , [facility] 4 12:11:53 Prostate specific antigen above referenc e range 037740873 Active 2024 Solange Josue PA-C [address], [place], [address] , [facility] 5 14:00:41 Problem Notes None recorded. Procedures Surgical History Date Name Laterality Status Provider Name and Address Organization Details Recorded Time 07/26/19 23 embolization procedure completed Johanna Rogers MA [facility] 11/15/2022 10:39:16 02/24/20 22 excision of basal cell carcinoma completed Solange Josue PA-C [address], [place], [address], [facility] 11/15/2022 11:15:09 06/22/20 19 Colonoscopy completed Cecelia Posadas [facility] 06/28/2019 13:10:12 03/14/20 18 Dbrdmt ecz/infected skin<10% completed Eli Méndez MA [facility] 11/13/2018 11:22:26 03/14/20 18 Arthroscopic Surgery completed Cecelia Posadas [facility] 11/14/2018 10:48:37 excision of basal cell carcinoma completed Darling Goncalves MA [facility] 06/04/2024 11:11:37 Imaging Results None recorded. Procedure Notes None recorded. Medical Equipment None Reported. Allergies Allergen ID Allergen Name Allergen Category Reaction Reaction Severity Criticality Documentation Date Start Date Code Code System Note Provider Name and Address Organization Details Recorded Time Substance with sulfonami de structure and antibacte rial mechanism of action (substanc e) medicatio n hives Not available Not available 10/04/20142013 81701 8003 SNOMED Ariana TRENT Koroma [facility] 8 11:26:47 Medications Name Sig Start Date [...] 20 mg tablet DAILY 2012 active RECORDED 11/19/20 13 1:19PM BY BELKIS MAHARAJ MD, OFFICE VISIT; Not Available Not Available Not Available lorazepam 0.5 mg tablet Take 1 tablet every day by oral route as needed. active Not Available Not Available No t Available tamsulosi n 0.4 mg capsule TAKE 1 CAPSULE BY MOUTH EVERY DAY 06/04 completed Not Available Not Available Not Available phenazopy ridine 100 mg tablet TAKE [...] BY MOUTH EVERY DAY FOR 30 DAYS 2024 active Not Available Not Available Not Avai lable nitrofura ntoin monohydra te/macroc rystals 100 mg capsule TAKE 1 CAPSULES ORAL TWICE A DAY FOR 5 DAYS 11/15 completed Not Available Not Available Not Available Flucelvax Quad 5017-5529 (PF) 60 mcg (15 mcg x 4)/0.5 mL IM syringe 11/13 completed Not Available Not Available Not Available Vitals Date Recorded Body weight Provider Name an d Address Organization Details Last Updated DateTime 10/09/2024 24102.03 g Trice Galicia MA [facility] 10/09/2024 13:26:56 Date Recorded Body height Provider Name an d Address Organization Details Last Updated DateTime 11/13/2024 175.26 cm Liliana Dalton LPN [facility] 11/13/2024 15:21:49 Date Recorded Body height Body mass index (BMI) Body weight Heart rate Oxygen saturation Oxygen saturation in Arterial blood by Pulse oximetry Body temperature Heart rate Systolic And Diastolic Systolic And Diastolic Provider Name and Address Organization Details Last Updated DateTime 3 175.26 cm 25.8 kg/m2 23119.2 3 g 51 /min 98 % 98 % 97.8 [degF] 69 /min 149/73 mm[Hg] 138/76 mm[Hg] Ariana antunez [facility] 3 09:42:02 Date Recorded Body height Body mass index (BMI) Body weight Heart rate Oxygen saturation Oxygen saturation in Arterial blood by Pulse oximetry Body temperature Systolic And Diastolic Provider Name and Address Organization Details Last Updated DateTime 4 175.26 cm 26.9 kg/m2 75915.2 1 g 69 /min 97 % 97 % 97.6 [degF] 136/77 mm[Hg] Darling Goncalves [facility] 4 11:12:45 Social History Question Answer Notes LastModified by Organizat ion Details LastModified Time Tobacco Smoking Status Never Smoker Monique last [facility] 12/03/2014 13:58:26 Do You Have An Advance [...] 10/19/2021 Are you able to care for yourself independently? Yes Information not available 03/09/2018 What is [...] influenza, unspecified formulation 4 completed Cecelia last [facility] 05/15/2020 13:13:45 Influenza, split virus, quadrivalent, PF 0 completed Cecelia last [facility] 05/15/2020 13:13:45 Influenza, MDCK, quadrivalent, PF 8 completed TRENT Brandon [facility] 10/19/2021 10:22:28 COVID-19, mRNA, LNP-S, PF, 30 mcg/0.3 mL dose 1 completed TRENT Barndon [facility] 10/19/2021 10:22:28 COVID-19, mRNA, LNP-S, PF, 30 mcg/0.3 mL dose 1 completed TRENT Brandon, [facility] 10/19/2021 10:22:28 COVID-19, mRNA, LNP-S, PF, 100 mcg/0.5mL dose or 50 mcg/0.25mL dose 1 completed TRENT Brandon, [facility] 10/19/2021 10:22:28 Influenza, MDCK, quadrivalent, PF 2 completed TRENT Crespo, [facility] 11/15/2022 10:32:03 Influenza, MDCK, quadrivalent, PF 3 completed TRENT Guardado, [facility] 08/16/2023 15:20:50 Tdap 4 completed Cecelia Posadas null, [facility] 05/15/2020 13:13:45 Influenza, split virus, quadrivalent, PF 0 completed Not Available [facility] 08/04/2019 02:22:10 Influenza, split virus, trivalent, PF 4 completed Solange Josue PA-C [address], [address], [facility] 06/04/2024 12:11:51 Past Encounters Encounter ID Performer Location Encounter Start Date Encounter Closed Date Diagnosis/Indication Diagnosis SNOMED-CT Code Diagnosis ICD10 Code Diagnosis Note [id number] autoEComm erce [address] [facility] [facility] [place] [address] 09/01/2010 00:00:00 [id number] autoEComm erce [address] [facility] [place] [address] 12/17/2011 00:00:00 [id number] autoEComm erce [address] [facility] [place] [address] 08/03/2012 00:00:00 [id number] autoEComm erce [address] [facility] [place], [place] [address] 11/09/2012 00:00:00 [id number] autoEComm erce [address] [facility] [place], [place] [address] 03/12/2013 00:00:00 [id number] autoEComm erce [address] [facility] [place], [place] [address] 06/05/2013 00:00:00 [id number] autoEComm erce [address] [facility] [place], [place] [address] 11/27/2013 00:00:00 [id number] Belkis galindo MD Main Office [address] [address] [place] [address] 12/03/2014 13:47:56 12/03/2014 14:48:43 Adult health examination 328962613 Pain of sh [place] region 36836954 Panic diso rder without agoraphobia 99303349 pt uses clonazepam rarely. off of SSRI/ doing well/ not an active issue now. [id number] Belkis galindo MD Main Office [address] [address] [place] [address] 09/03/2016 12:40:15 09/03/2016 14:22:14 Panic disorder 029895483 F41.0 Insomnia 771864828 G47.0 0 [id number] Belkis galindo MD Main Office [facility] [address] [address] [place] [address] 09/02/2017 15:14:59 09/02/2017 16:42:51 Disorder of thyroid gland 51415370 E07.9 Fatigue 87316197 R53.83 Hyperlipidemia 30077857 E78.5 [id number] Pedro Oshea MD Main Office [address] [address] [place] [address] 03/09/2018 10:50:39 03/09/2018 11:49:11 Pre-surgery evaluation 770799464 Z01.818 He is low risk and is cleared for his upcoming surgery. 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 ascvd risk c pt Vitamin D deficiency 347 87019 E55.9 Suad thyroiditis 21 135564 E06.3 Body mass index 25-29 - overweight 303238478 Z68.28 Impaired f asting glycemia 884595454 R73.01 Overweight 020188236 E66 .3 [id number] Eda uriostegui MD Main Office [address] [address] [place] [address] 08/02/2019 11:28:56 08/02/2019 12:31:16 Needs influenza immunization 109971577 Z23 Cellulitis of lower limb 170791598 L03.115 will tx with doxy to cover cellulitis and lyme though tick is large, very unlikley Anxiety 68498048 F41.9 use prn Tick bite 74896801 W57.X XXA no need for testing see above Insect bit e to leg - nonvenomous 370404179 S80.861A [id number] Timmy Holt MD Main Office [address] [address] [place] [address] 10/19/2021 10:01:02 10/19/2021 11:15:34 Adult health examination 813925084 Z00.00 Mixed hyperlipidemia 267 417587 E78.2 rec less red meat and low carb diet -- initially rev. 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 [employer] / sandal - x ~ 3 yrs - will get podiatry eval [id number] Brando Bernabe MD [facility] [address] [facility] [address] [place] [address] 11/20/2021 10:31:13 11/23/2021 08:42:37 Cough 31710672 R05.1 [id number] Timmy Holt MD Main Office [address] [facility] [address] [place] [address] 11/15/2022 10:20:53 11/15/2022 11:47:52 Adult health examination 210874442 Z00.00 History of malignant basal cell neoplasm of skin 187414214 Z85.828 s/p resection 8.9.22, cont f/u c ne derm q yr Benign pro static hyperplasia with outflow obstruction 049647353 N40.1 will get uro eval and check psa 5.23 - better p prostate embolizati on c ne vascular, does not wish to go back downstairs to uro - will get eval c another group Nocturia 548002116 R35.1 Mixed hyperlipidemia 267 762017 E78.2 rec less red meat and low carb diet -- initially rev. ascvd risk c pt Vitamin D deficiency 347 59517 E55.9 Fatigue 47235948 R53.83 Impaired f asting glycemia 164422637 R73.01 Metatarsal darrell of left foot 3133479837 74860 M77.42 will get ortho eval [id number] Erendira Tinoco MD Main Office [address] [facility] [address] [place] [address] 11/30/2022 09:24:29 11/30/2022 10:06:00 Metatarsalgia 92477820 M77.41 Suspected Metatarsal giaAdvised warm soaks.NSAI D given, aware not to take with any other otc NSAID. Reminded to get PE labs.Podia try referral given so they can eval for foot mechanics. Will also get xray to ensure no stress fx. Pain in left foot 378606 5106 26175 M79.672 Has been having ongoing issues on left foot requesting xray given that he is having right foot done. [id number] Timmy Holt MD [facility] [address] [facility] [address] [place] [address] 08/16/2023 15:02:42 08/16/2023 16:23:13 Benign prostatic hyperplasia with outflow obstruction 695141850 N40.1 will get uro eval and check [...] plane in past)noctu pal x 2/night lately [id number] Timmy Holt MD Main Office [address] [address] 06/04/2024 10:54:41 06/04/2024 12:11:20 Adult health examination 821601504 Z00.00 colon utd Needs infl uenza immunization 573837618 Z23 19 YEARS AND OLDER ONLY Benign pro static hyperplasia with outflow obstruction 355492411 N40.1 will get uro eval and check [...] cont f/u c uro Suad thyroiditis 21 022506 E06.3 History of malignant basal cell neoplasm of skin 536287071 Z85.828 stable - s/p resection 8.9.22, cont f/u c ne derm q yr Mixed hyperlipidemia 267 142389 E78.2 rec less red meat and low carb diet -- initially rev. ascvd risk c pt Body mass index 25-29 - overweight 466689469 E66.3 Z68.26 Impaired f asting glycemia 023725926 R73.01 Anxiety 76827634 F41.9 mild on jes, does a lot of mindfulnes s, does have old rx from [facility] for prn benzo - is running low, rarely uses, requests refill - low abuse potential [id number] Timmy Holt MD [facility] [address] [facility] [address] [place] [address] 10/09/2024 13:13:06 10/09/2024 15:55:39 Prostate specific antigen above reference range 709719853 R97.20 reviewed yesterday' s uro note c pt - plan is to recheck psa in 1 monthcont f/u c uro end of 4.25 Suad thyroiditis 21 167338 E06.3 Fatigue 79938047 R53.83 Vitamin D deficiency 347 16180 E55.9 Costal chondritis 943223 04 M94.0 rec warm compress to sternum [id number] Timmy Holt MD [facility] [address] [facility] [address] [place] [address] 11/13/2024 12:55:21 11/13/2024 16:20:45 Benign prostatic hyperplasia with outflow obstruction 500115614 N40.1 will get uro eval and check [...] will order prostate mri Mixed hyperlipidemia 267 364834 E78.2 rec less red meat and low [...] crestor 5mg - rev risks/bene fits Nocturia 212328096 R35.1 Health Concerns Section Related Observation LastModified by Organization Detai ls LastModified Time None Recorded Concern Status LastModified by Organization Details LastModified Time None Recorded Advance Directives Directive N: Payers Insurance Date Sequence Insurance Name Policy Number Policy Matute Covered Member ID Matute Member ID Guarantor Name 11/21/2024 1 BEATA: Robel PHIPPS [id number] Мария Montague [id number] Мария Montague
== END 2025-02-12 13:04 | disposition home or self-care (01) ==
LOC: HO.HUSH 11:46
PROVIDERS: PCP Pediatrics; Visit Provider Nurse Practitioner Family
DX: R97.20 Elevated prostate specific antigen [PSA] (principal); Z80.42 Family history of malignant neoplasm of prostate; R39.9 Unspecified symptoms and signs involving the genitourinary system; R39.12 Poor urinary stream; R35.1 Nocturia
CPT/HCPCS: 99213